=== PATIENT | female | born 1980 | race Caucasian/White ===

== ENCOUNTER → 2020-04-09 10:29 | Outpatient (BNVA) | payer SELFPAY | PROVIDERS: Visit Provider Family Medicine | DX: E87.6 Hypokalemia (principal); I10 Essential (primary) hypertension | CPT/HCPCS: 80053; 80061; 85025 ==

== ENCOUNTER 2022-06-06 10:19 | Inpatient (IN) | payer OTHER, SELFPAY ==
[2022-06-06] VITALS (29 sets, daily range): BP systolic 171–216; BP diastolic 104–151; PULSE 68–110; RESP 14–39; TEMP 36.7–37.2; O2SAT 91–100; BMI 33.2
--- NOTE | 2022-06-06 10:27 | XR_ITS ---
WS: [id number] Exam: XR chest 1V portable [id number] Date/Time of Exam: 06/06/2022 10:27 AM Reason For Exam: swelling Comparison 10/02/2018. There has been significant cardiac enlargement since the prior study. Increased pulmonary vascularity . Small volume right-sided pleural effusion. The mediastinum is normal in contour. Bony structures ar e intact. XR/XR chest 1V portable [id number] IMPRESSION: 1. Interval cardiac enlargement with increased pulmonary vascularity and small volume right-sided pleural effusion. Mild CHF considered likely.
--- NOTE | 2022-06-06 11:12 | W.ED.SOB ---
HPI - SOB/Dyspnea General: Chief Complaint: Shortness of Breath/Dyspnea Stated Complaint: extra fluid in extremities Time Seen by Provider: 06/06/22 11:07 History of Present Illness: HPI Narrative: 42-year-old male into the emergency department with complaints of swelling and high blood pressure. The patient has discontinued his medications over concerns of some swelling. Patient reports a fullness in his abdomen and he has noticed some increased lower extremity swelling. The patient denies any chest pain. He reports some mild shortness of breath. Patient has not recently been ill or running a fever. No chills. Patient is on a variety of different medications to control his blood pressure. Patient reports he has had about a 35 pound weight gain over the past several months. He denies any other significant symptoms. Physical Exam Const: COMMON NORMALS: no acute distress, patient oriented x3 and alert HENMT: COMMON NORMALS: normocephalic HEAD & SCALP: normocephalic Eye: COMMON NORMALS: conjunctivae normal CONJUNCTIVA: Yes conjunctivae normal Neck/C-Spine: COMMON NORMALS: full ROM, no lymphadenopathy, supple and Thyroid normal THYROID: Thyroid normal Resp: COMMON NORMALS: normal respiratory effort, No retractions, No use of accessory muscles and clear to auscultation bilaterally AUSCULTATION: clear to auscultation bilaterally GI: COMMON NORMALS: Normal to inspection, nondistended, normoactive bowel sounds present, non-tender and no masses Extremity: COMMON NORMALS: normal to inspection and full ROM Neuro: COMMON NORMALS: patient oriented x3 SENSORIUM/ORIENTATION: Yes alert Skin: COMMON NORMALS: no rashes or lesions noted, turgor normal and no jaundice GENERAL SKIN EXAM: no rashes or lesions noted and turgor normal Course Vital Signs: Vital signs: Vital Signs Temperature 98.1 F 06/06/22 10:25 Pulse Rate 100 06/06/22 11:09 Respiratory Rate 14 06/06/22 11:09 Blood Pressure 199/145 06/06/22 11:09 Pulse Oximetry 97 06/06/22 11:09 Oxygen Delivery Me thod 06/06/22 11:09 MDM - SOB/Dyspnea Medical Decision Making 42-year-old male in with concerns of shortness of breath and elevated blood pressure. The patient does have some marked edema in his lower extremities. We reviewed differential I do not think this is likely to be infectious in nature. I reviewed his medications certainly his calcium channel ramon can cause some swelling as well. Patient will have labs, EKG and chest x-ray will make further recommendations based on the findings and serial exams but I suspect this is related elevated and uncontrolled hypertension and less likely he has medications he may have some mild congestive failure. Patient looks like he is in congestive heart failure with hypertensive crisis and acute kidney injury. I talked to the hospitalist about admission for further work-up we will place him on a nitroglycerin drip and get him admitted. Differential Diagnosis Likely acute exacerbation of chronic obstructive airways disease, congestive heart failure, community acquired pneumonia, asthma with exacerbation and pulmonary embolism Lab Data 06/06/22 11:10 06/06/22 11:10 Labs/Radiology: Radiology Impressions Chest X-Ray 06/06/22 10: IMPRESSION: 1. Interval cardiac enlargement with increased pulmonary vascularity and small volume right-sided pleural effusion. Mild CHF considered likely. Laboratory Results WBC 7.7 10^3/uL (4.0-10.0) 06/06/22 11:10 RBC 4.23 10^6/uL (4.1-5.3) 06/06/22 11:10 Hgb 12.0 g/dL (11.7-16.6) 06/06/22 11:10 Hct 37.1 % (42.0-52.0) L 06/06/22 11:10 MCV 87.7 fl (80-94) 06/06/22 11:10 MCH 28.4 pg (28.0-34.0) 06/06/22 11:10 MCHC 32.3 g/dL (30.0-36.0) 06/06/22 11:10 RDW 13.4 % (12.1-15.1) 06/06/22 11:10 Plt Count 367 10^3/cmm (130-400) 06/06/22 11:10 MPV 9.4 fL (7.4-10.4) 06/06/22 11:10 Neut % (Auto) 62.3 % 06/06/22 11:10 Lymph % (Auto) 27.0 % 06/06/22 11:10 [place] % (Auto) 9.0 % 06/06/22 11:10 Eos % (Auto) 0.5 % 06/06/22 11:10 Baso % (Auto) 0.9 % 06/06/22 11:10 Neut # (Auto) 4.79 10^3/uL (1.8-7.7) 06/06/22 11:10 Lymph # (Auto) 2.1 10^3/uL (0.8-4.8) 06/06/22 11:10 [place] # (Auto) 0.7 10^3/uL (0.2-0.9) 06/06/22 11:10 Eos # (Auto) 0.0 10^3/uL (0.0-0.8) 06/06/22 11:10 Baso # (Auto) 0.1 10^3/uL (0.0-0.1) 06/06/22 11:10 Nucleated RBC % (auto) 0 % 06/06/22 11:10 Nucleated RBCs # 0.0 /100WBC 06/06/22 11:10 Sodium 136 mmol/L (136-145) 06/06/22 11:10 Potassium 3.1 mmol/L (3.5-5.1) L 06/06/22 11:10 Chloride 97 mmol/L (98-107) L 06/06/22 11:10 Carbon Dioxide 26 mmol/L (22-29) 06/06/22 11:10 Anion Gap 16.1 (5-19) 06/06/22 11:10 BUN 27 mg/dL (6-20) H 06/06/22 11:10 Creatinine 2.6 mg/dL (0.7-1.2) H 06/06/22 11:10 GFR Calculation 27.1 mL/min (90-130) L 06/06/22 11:10 Glucose 96 mg/dL (65-115) 06/06/22 11:10 Calculated Osmolality 287 mOsm/kg (285-295) 06/06/22 11:10 Calcium 9.4 mg/dL (8.5-10.5) 06/06/22 11:10 Total Bilirubin 1.3 mg/dL (0.15-1.2) H 06/06/22 11:10 AST 56 U/L (0-40) H 06/06/22 11:10 ALT 38 U/L (0-41) 06/06/22 11:10 Alkaline Phosphatase 101 U/L (40-130) 06/06/22 11:10 NT-Pro-B Natriuret Pep 56441 pg/mL (0-125) H 06/06/22 11:10 Total Protein 7.8 g/dL (6.6-8.7) 06/06/22 11:10 Albumin 3.8 g/dL (3.5-5.2) 06/06/22 11:10 Globulin 4.0 g/dL (1.3-4.6) 06/06/22 11:10 Discharge Plan Discharge Patient Disposition: Admitted As Inpatient Clinical Impression: Hypokalemia, Congestive heart failure, RASHI (acute kidney injury), Hypertensive crisis Condition: Stable Coding Level of Care Code ED Property Field Adjuster for Joe Fwd Exam Comprehensive
--- NOTE | 2022-06-06 11:13 | ECG_ITS ---
[facility] Test Date: 2022-06-06 Pat Name: Doug Frank Department: Room: Gender: Male Examination Proctor: : 1980 Requested By: Luis Kaiser Order Number: [id number] Mar MD: Chiquita Kan M.D. Measurements Intervals [place] Rate: 96 P: 73 HI: 196 QRS: 12 QRSD: 117 T: 135 QT: 378 QTc: 480 Interpretive Statements SINUS RHYTHM LEFT ATRIAL ENLARGEMENT [-0.15mV P-WAVE IN V1/V2] LEFT VENTRICULAR HYPERTROPHY AND ST-T CHANGE [VOLTAGE CRITERIA PLUS ST/T ABNORMALITY] Compared to ECG 10/03/2018 06:03:02 Atrial abnormality now present Left ventricular hypertrophy now present ST (T wave) deviation now present T-wave abnormality no longer present Possible ischemia no longer present Electronically Signed On 06-06-2022 22:00:40 SPECIAL FORCES MEDICAL SERGEANT by Chiquita Kan M.D. [email or web address]/store/[id number]
[2022-06-06 11:19] LABS: Basophils # 0.1 10^3/uL (0.0-0.1); Basophils % 0.9 %; Eosinophils % 0.5 %; Hematocrit 37.1 % (42.0-52.0); Lymphocytes # 2.1 10^3/uL (0.8-4.8); Mean Corpuscular HGB Conc 32.3 g/dL (30.0-36.0); Mean Corpuscular Hemoglobin 28.4 pg (28.0-34.0); Mean Corpuscular Volume 87.7 fl (80-94); Mean Platelet Volume 9.4 fL (7.4-10.4); Monocytes # 0.7 10^3/uL (0.2-0.9); Neutrophils # 4.79 10^3/uL (1.8-7.7); Neutrophils % 62.3 %; Nucleated Red Blood Cells % 0 %; Platelet Count 367 10^3/cmm (130-400); Red Blood Count 4.23 10^6/uL (4.1-5.3); Red Cell Distribution Width 13.4 % (12.1-15.1); White Blood Count 7.7 10^3/uL (4.0-10.0)
[2022-06-06] MEDS: FUROsemide 10 mg/mL SDV 4mL 40 MG IVP (11:37)
--- NOTE | 2022-06-06 11:43 | PC.PHAR ---
PT AND PTS FAMILY STATES THE PT TAKES ALL THE MEDICATIONS ENTERED PRN-BROUGHT IN ALL MED BOTTLES EXCEPT LISINOPRIL 20MG BID-RX BOTTLES WERE DATED 12/27/2020-NOTES ARE MADE IN THE PHARMACY COMMENTS
[2022-06-06 11:48] LABS: Alanine Aminotransferase 38 U/L (0-41); Albumin Level 3.8 g/dL (3.5-5.2); Alkaline Phosphatase 101 U/L (40-130); Anion Gap 16.1 (5-19); Aspartate Amino Transferase 56 U/L (0-40); Blood Urea Nitrogen 27 mg/dL (6-20); Calcium 9.4 mg/dL (8.5-10.5); Carbon Dioxide 26 mmol/L (22-29); Chloride 97 mmol/L (98-107); Glomerular Filtration Rate 27.1 mL/min (90-130); Glucose 96 mg/dL (65-115); Osmolality Calculated 287 mOsm/kg (285-295); Potassium 3.1 mmol/L (3.5-5.1); Sodium 136 mmol/L (136-145); Total Bilirubin 1.3 mg/dL (0.15-1.2); Total Protein 7.8 g/dL (6.6-8.7)
[2022-06-06 12:08] LABS: NT Pro B Type Natriuretic Pept 33646 pg/mL (0-125)
--- NOTE | 2022-06-06 12:22 | PM.HP ---
Providers/Chief Complaint Chief Complaint: extra fluid in extremities History of Present Illness Doug Frank is a 42 year old male with no previous history of CHF history of IV drug abuse, hypertension, noncompliant, presented with worsening of swelling extremities. Patient is stating that he has been noticing swelling for quite some time but recently has gotten worse, swelling has extending all the way up to his testicles now. He has been noticing orthopnea, PND,. He was struggling financially hence borrowing Lasix from his friends. He is not taking any medications. Has not seen a doctor in a long time. Looking for a restaurant at this moment Never had any NC, endorsing to use of IV cocaine and methamphetamine. He does vap In the ER he was diagnosed with systolic CHF exacerbation, hypertensive emergency with flash pulm edema Review of Systems Const: Denies: fever(s) Eyes: Denies: change in vision ENMT: Denies: throat pain Card: Reports: swelling of feet/ankles, dyspnea on exertion and orthopnea Resp: Reports: dyspnea GI: Denies: abdominal pain : Denies: flank pain Musc: Denies: neck pain Skin/Breast: Reports: skin swelling Neuro: Reports: headache(s) Psych: Reports: anxiety Endo: Denies: polyuria Otis/Lymph: Denies: easy bruising All/Imm: Denies: urticaria Medications/Allergies Home Medications Medication Instructions Recorded Confirmed Last Taken Type amlodipine 5 mg tablet 5 mg PO DAILY PRN Blood Pressure 06/06/22 06/06/22 Unknown History carvedilol 25 mg tablet 25 mg PO BID PRN Blood Pressure 06/06/22 06/06/22 Unknown History hydralazine 50 mg tablet 50 mg PO TID PRN Blood Pressure 06/06/22 06/06/22 Unknown History lisinopril 20 mg tablet 20 mg PO BID PRN Blood Pressure 06/06/22 06/06/22 Unknown History Allergies Allergy/AdvReac Type Severity Reaction Status Date / Time No Known Allergies Allergy Verified 06/06/22 11:40 PFSH Acute PFSH: Medical History Intravenous drug abuse Family History (Updated 06/06/22 @ 20:57 by Crys Stevenson MD) Other CAD (coronary artery disease) Social History (Updated 06/06/22 @ 20:57 by Crys Stevenson MD) Smoking and tobacco status: current every day smoker e-cigarettes E-Cigarette Details: e-cigarette and vaporizer device Alcohol intake: current Alcohol intake frequency: few times a month Substance/Drug Use: current Substance/Drug use type: Crack/Cocaine and Amphetamines Vitals/I&O/Wt Last Vital Signs Temp 98.1 F 06/06/22 10:25 Pulse 100 06/06/22 11:09 Resp 14 06/06/22 11:09 BP 199/145 06/06/22 11:09 Pulse Ox 97 06/06/22 11:09 O2 Del Method 06/06/22 11:09 Weight last 48 hrs Weight 107.955 kg Physical Exam Narrative: Patient is showing signs of anasarca Edema extending all the way up to his abdominal wall Testicle swelling Currently doing well on room air Anxious appearing Bilateral breath sounds without significant crackles S1, S2 Hypertensive Abdomen soft however distended Nonfocal neuro exam EOMI, PERRLA Data 06/06/22 11:10 06/06/22 11:10 A&P Assessment and plan (1) Congestive heart failure: (2) RASHI (acute kidney injury): (3) Hypertensive crisis: (4) Hypokalemia: (5) Essential hypertension: Plan Systolic CHF exacerbation EF 30 to 35% Most likely due to underlying hypertension and IV drug abuse Never had any NC Will need to diurese and then he will probably need coronary angiogram we will consult cardiology over the weekend For her is hypertensive urgency started nitroglycerin and Cardene drip Added hydralazine as well RASHI: Cardiorenal, put Millan catheter monitor urine output Check drug screen Full code Patient will need LifeVest Patient does not have any PCP Noncompliant Check TSH Attestations Medical Necessity Statement*: Anticipating more than 2 midnights Time Spent in Patient Care: 40 Coding Level of Care Code Acute Code for [facility] Fwd Diagnoses Congestive heart failure I50.9 RASHI (acute kidney injury) N17.9 Hypertensive crisis I16.9 Hypokalemia E87.6 Essential hypertension I10
--- NOTE | 2022-06-06 12:32 | USCV_ITS ---
Doug Frank Age: 42 Gender: M : 1980 Exam Date: 06/06/2022 12:49 Ordering Phys: Crys Stevenson MD Technologist: JOSÉ MIGUEL Exam Location: [facility] [place] Indication: chf BP: / HR: 111 Rhythm: Sinus Technical Quality: Adequate MEASUREMENTS (Male / Female) Normal Values 2D ECHO LV Diastolic Diameter PLAX 6.2 cm 4.2 - 5.9 / 3.9 - 5.3 cm LV Systolic Diameter PLAX 5.3 cm IVS Diastolic Thickness 1.3 cm 0.6 - 1.0 / 0.6 - 0.9 cm IVS Systolic Thickness 1.6 cm LVPW Diastolic Thickness 1.3 cm 0.6 - 1.0 / 0.6 - 0.9 cm LVPW Systolic Thickness 1.4 cm LVOT Diameter 2.1 cm LV Ejection Fraction 2D Teich 31.8 % LV Ejection Fraction MOD 2C 41.5 % LV Ejection Fraction 2C AL 42.4 % LA Diameter 5.0 cm IVC Diameter 2.4 cm M-MODE Aortic Annulus Diameter 2.7 cm LA Ao Ratio MM 2.0 MV E Point Septal Separation 1.9 cm DOPPLER AV Peak Velocity 109.5 cm/s LVOT Peak Velocity 103.0 cm/s AV Area Cont Eq vti 2.9 cm squared AV Area Cont Eq pk 3.4 cm squared MV Area PHT 5.0 cm squared Mitral E to A Ratio 4.9 MV E' Velocity 64.0 cm/s Mitral E to MV E' Ratio 16.6 Mitral E to LV E' Lateral Ratio 16.8 Mitral E to LV E' Septal Ratio 16.6 TR Peak Velocity 281.7 cm/s TR Peak Gradient 31.7 mmHg TV Peak E Velocity 80.0 cm/s Right Atrial Pressure 3.0 mmHg Pulmonary Artery Systolic Pressu 34.7 mmHg PV Peak Velocity 59.0 cm/s FINDINGS Left Ventricle Left ventricle is dilated. LV systolic function is moderate to severely reduced with EF of 30 to 35%. Severe global hypokinesis is seen. Right Ventricle Normal in size and function Right Atrium Dilated Left Atrium Dilated Mitral Valve Structurally normal mitral valve. Mild mitral regurgitation. Aortic Valve Structurally normal aortic valve. No significant stenosis or regurgitation. Tricuspid Valve Mild tricuspid regurgitation. RVSP is 35-40mmHg. This is consistent with mild pulmonary hypertension Pulmonic Valve Not well visualized Pericardium Normal Aorta Normal in size IVC Appears to be normal CONCLUSIONS Left ventricle is dilated LV systolic function is moderate to severely reduced with EF of 30 to 35% . Severe global hypokinesis seen. Biatrial dilation Mild mitral regurgitation Mild tricuspid regurgitation Mild pulmonary hypertension No comparison studies are available. Krzysztof Ramsay MD (Electronically Signed) Final Date: 06 June 2022 14:39 S
[2022-06-06] MEDS: nitroglycerin drip 50 MG/250 ML PREMIX IV (12:48)
[2022-06-06] MEDS: heparin 5,000 unit/mL INJ 1 mL 5000 UNIT SUBCUT ×2 (12:54→23:46)
[2022-06-06 13:04] LABS: Add Urine Microscopic? YES; Bilirubin Urine Neg (Negative); Blood Urine Trace (Negative); Glucose Urine UA Norm (Normal); Ketones Urine Negative (Negative); Leukocyte Esterase Urine Negative (Negative); Nitrate Urine Negative (Negative); Protein Urine 2+ (Negative); Specific Gravity, Urine 1.005 (1.005-1.030); Urine Appearance Clear (CLEAR); Urine Color Yellow (Yellow); Urobilinogen Urine Norm (Negative); pH Urine 7 (5-7)
[2022-06-06 13:09] LABS: Troponin(5th) Baseline 93 ng/L (0-15)
[2022-06-06 13:15] LABS: Bacteria Urine TRACE /hpf; RBC Urine 0-4 /hpf (0-2); Squamous Epithelial Cell Urine RARE /hpf (0-5); WBC Urine 0-4 /hpf (0-5)
[2022-06-06 13:16] LABS: Add Urine Culture? No
--- NOTE | 2022-06-06 14:10 | PC.NURSE ---
Pt arrives to ICU from Ed. Pt alert and oriented. To bathroom to urinate. Nitro at 20mcg/min. Increased to 30mcg/min for BP of 179/124.
--- NOTE | 2022-06-06 14:11 | PC.NURSE ---
Physical assessment: Significant scrotal edema noted.
--- NOTE | 2022-06-06 14:32 | ECG_ITS ---
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 Measurements Intervals [place] Rate: 97 P: 72 TX: 200 QRS: 39 QRSD: 112 T: 132 QT: 373 QTc: 475 Interpretive Statements SINUS RHYTHM POSSIBLE LEFT ATRIAL ENLARGEMENT [-0.1mV P-WAVE IN V1/V2] LEFT VENTRICULAR HYPERTROPHY AND ST-T CHANGE [VOLTAGE CRITERIA PLUS ST/T ABNORMALITY] Compared to ECG 06/06/2022 11:23:12 No significant changes Electronically Signed On 06-06-2022 22:11:45 PRODUCTION MECHANIC TIN CANS by Chiquita Kan M.D. [id number]
--- NOTE | 2022-06-06 18:32 | ECG_ITS ---
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 Measurements Intervals [place] Rate: 98 P: 73 RI: 198 QRS: 27 QRSD: 116 T: 186 QT: 366 QTc: 468 Interpretive Statements SINUS RHYTHM LEFT VENTRICULAR HYPERTROPHY AND ST-T CHANGE [VOLTAGE CRITERIA PLUS ST/T ABNORMALITY] Compared to ECG 06/06/2022 14:51:27 No significant changes Electronically Signed On 06-06-2022 22:09:16 SCIENTIFIC RESEARCH ASSOCIATE by Chiquita Kan M.D. [email or web address] a. andrew memorial hospitalVISUALPLANTselect medical [facility].[employer]/store/OM/[id number]
--- NOTE | 2022-06-06 19:03 | PC.NURSE ---
Shift Note: NO complaints of pain or shortness of breath since arrival to ICU. Pt resting in bed. Pitting edema bilat legs. Scrotal edema still present. Pt uses urinal. He urinated once in bathroom upon arrival to ICU that did not get measured. He urinated 4 more times for a total of 1874 ml output. Frequent safety and comfort rounds continue. Orders and/or nursing care completed as indicated. Patient monitored for response to intervention and treatment(s). Education provided includes edema, Nitroglycerin, plan of care and progress. Patient and/or entry level sales representative verbalized understanding of topics discussed. Will continue to monitor.
[2022-06-06 19:16] LABS: Troponin 5 6HR 86.15 ng/L (0-15)
[2022-06-06 19:24] LABS: Thyroid Stimulating Hormone 4.25 uIU/mL (0.27-4.20)
[2022-06-06 19:28] LABS: Troponin 5 6HR Delta -6.85 ng/L (0-12)
[2022-06-06] MEDS: hyDRALAzine 50 mg Tablet PO (19:39)
[2022-06-06] MEDS: bumetanide 0.25 mg/mL SDV 10 mL 2 MG IVP (19:40)
[2022-06-06] MEDS: lidocaine 1% 5 ML in potassium chloride premix 100 ML 26.25 ML IV (19:43)
[2022-06-06] MEDS: nitroglycerin drip 50 MG/250 ML PREMIX 54 MG IV (20:12)
[2022-06-06 21:48] LABS: Amphetamines Screen Urine Negative (Negative); Barbiturates Screen Urine Negative (Negative); Benzodiazepines Screen Urine Negative (Negative); Cocaine Screen Urine Negative (Negative); Opiate Screen Urine Negative (Negative); PCP Screen Urine Negative (Negative); THC Screen Urine Negative (Negative)
[2022-06-06] MEDS: ALPRAZolam 0.5 mg Tablet PO (22:34)
[2022-06-06] MEDS: nicardipine 20 MG/200 ML PREMIX 50 MG IV (23:18)
[2022-06-07] VITALS (65 sets, daily range): BP systolic 109–171; BP diastolic 65–101; PULSE 78–112; RESP 14–29; TEMP 36.4–37.1; O2SAT 91–100
[2022-06-07] MEDS: ondansetron 2 mg/ML SDV 2 mL 4 MG IVP (00:05)
[2022-06-07] MEDS: morphine IR 15 mg Tablet PO (00:05)
[2022-06-07] MEDS: nitroglycerin drip 50 MG/250 ML PREMIX 57 MG IV (00:46)
[2022-06-07] MEDS: nicardipine 20 MG/200 ML PREMIX 30 MG IV (04:47)
[2022-06-07 05:18] LABS: Basophils % 0.3 %; Eosinophils % 0.1 %; Hematocrit 33.1 % (42.0-52.0); Hemoglobin 10.4 g/dL (11.7-16.6); Lymphocytes % 8.9 %; Mean Corpuscular HGB Conc 31.4 g/dL (30.0-36.0); Mean Corpuscular Hemoglobin 27.5 pg (28.0-34.0); Mean Corpuscular Volume 87.6 fl (80-94); Mean Platelet Volume 9.5 fL (7.4-10.4); Monocytes # 0.7 10^3/uL (0.2-0.9); Monocytes % 6.7 %; Neutrophils # 8.92 10^3/uL (1.8-7.7); Neutrophils % 83.7 %; Nucleated Red Blood Cells % 0 %; Platelet Count 355 10^3/cmm (130-400); Red Blood Count 3.78 10^6/uL (4.1-5.3); Red Cell Distribution Width 13.2 % (12.1-15.1); White Blood Count 10.7 10^3/uL (4.0-10.0)
[2022-06-07 05:46] LABS: Anion Gap 17.6 (5-19); Blood Urea Nitrogen 24 mg/dL (6-20); Carbon Dioxide 28 mmol/L (22-29); Chloride 99 mmol/L (98-107); Glomerular Filtration Rate 28.3 mL/min (90-130); Glucose 139 mg/dL (65-115); Magnesium 1.8 mg/dL (1.7-2.3); Osmolality Calculated 298 mOsm/kg (285-295); Potassium 3.6 mmol/L (3.5-5.1); Sodium 141 mmol/L (136-145)
[2022-06-07] MEDS: bumetanide 0.25 mg/mL SDV 10 mL 2 MG IVP ×2 (05:46→17:51)
[2022-06-07] MEDS: nitroglycerin drip 50 MG/250 ML PREMIX 28.5 MG IV ×2 (07:07→16:16)
[2022-06-07] MEDS: cloNIDine 0.1 mg Tablet PO (08:52)
[2022-06-07] MEDS: potassium chloride ER 20 mEq Tablet 40 MEQ PO ×2 (08:53→17:51)
[2022-06-07] MEDS: isosorbide dinitrate 20 mg Tablet PO ×2 (08:53→17:51)
[2022-06-07] MEDS: sennosides-docusate Tablet 1 TAB PO (08:53)
[2022-06-07] MEDS: hyDRALAzine 50 mg Tablet PO ×4 (08:53→20:44)
--- NOTE | 2022-06-07 11:29 | PM.PN ---
Subjective Subjective: Patient is still hypertensive requiring nitroglycerin I have added nurse to start Cardene and titrate off nitroglycerin, he is also getting hydralazine No active chest pain or shortness of breath Still fluid overloaded Adequate urinary output Creatinine improved slightly Afebrile Vitals/I&O/Wt Last Vital Signs Temp 98.7 F 06/07/22 08:00 Pulse 100 06/07/22 10:00 Resp 20 H 06/07/22 10:00 BP 153/89 06/07/22 10:00 Pulse Ox 97 06/07/22 10:00 O2 Del Method 06/07/22 10:00 O2 Flow Rate 3 06/07/22 10:00 FiO2 30 06/06/22 16:00 06/06/22 06/07/22 06/07/22 22:59 06:59 14:59 Intake Total 883.975 / 893.025 759.417 / 1652.442 480 / 480 Output Total 3975 / 3975 1850 / 5825 Balance -3091.025 / -3081.975 -1090.583 / -4172.558 480 / 480 Weight last 48 hrs Weight 101 kg Weight 107.955 kg Physical Exam Narrative: Patient is clinically fluid overloaded Anasarca Testicular swelling 3+ edema of legs extending all the way up to his abdominal wall S1, S2 Hypertensive Awake and alert Eating breakfast Positive crackles bilaterally Not requiring oxygen No acute distress Urinary Catheter Management: Millan: Cath Placed During This Visit: yes Reason for Continuing Indwelling Catheter: Accurate Measurement of Urinary Output in Critically Ill Patients Urinary Catheter Date of Insertion: 06/06/22 Urinary Catheter Time of Insertion: 20:05 Data 06/07/22 04:40 06/07/22 04:40 A&P Assessment and plan (1) Congestive heart failure: (2) RASHI (acute kidney injury): (3) Hypertensive crisis: (4) Hypokalemia: (5) Essential hypertension: Plan Systolic CHF exacerbation Secondary to noncompliance, hypertension, IV drug abuse Will consult cardiology tomorrow He is not ready for coronary angiogram RASHI cardiorenal in nature improving with diuresis Continue aggressive IV diuresis Hypertensive emergency: Patient is still requiring IV Cardene and nitroglycerin Pulm edema consistent with CHF exacerbation Not requiring oxygen no need of BiPAP for now Patient will need LifeVest at the time of discharge Full code Cardiac diet Electrolytes: Replenished If his blood pressure does not respond in next few hours we might need to pursue resistant hypertension work-up however I do believe patient has not used medications in the last few months and it will take a few more hours for the medications to achieve therapeutic level and then will start seeing response on his blood pressure Attestations Medical Necessity Statement*: Continue ICU management for now Time Spent in Patient Care: 30 Coding Level of Care Code Acute Code for g Fwd Diagnoses Congestive heart failure I50.9 RASHI (acute kidney injury) N17.9 Hypertensive crisis I16.9 Hypokalemia E87.6 Essential hypertension I10
[2022-06-07] MEDS: heparin 5,000 unit/mL INJ 1 mL 5000 UNIT SUBCUT (12:35)
[2022-06-07] MEDS: carvedilol 6.25 mg Tablet PO ×2 (12:35→17:51)
--- NOTE | 2022-06-07 19:13 | PC.NURSE ---
All the care and documentation that was completed by Chel Cantrell student nurse was monitored and confirmed by this nurse.
--- NOTE | 2022-06-07 21:41 | PC.NURSE ---
Pt requesting xanax for anxiety, Dr. Black made aware of pt request, new order for a one time dose of xanax.
[2022-06-07] MEDS: ALPRAZolam 0.5 mg Tablet PO (21:59)
[2022-06-08] VITALS (77 sets, daily range): BP systolic 104–168; BP diastolic 49–112; PULSE 77–91; RESP 15–29; TEMP 36.3–37.1; O2SAT 85–100
[2022-06-08] MEDS: heparin 5,000 unit/mL INJ 1 mL 5000 UNIT SUBCUT ×3 (00:40→23:56)
[2022-06-08 05:31] LABS: Basophils % 0.4 %; Eosinophils # 0.3 10^3/uL (0.0-0.8); Eosinophils % 3.2 %; Hemoglobin 10.1 g/dL (11.7-16.6); Lymphocytes # 1.7 10^3/uL (0.8-4.8); Lymphocytes % 21.6 %; Mean Corpuscular HGB Conc 31.6 g/dL (30.0-36.0); Mean Corpuscular Hemoglobin 28.5 pg (28.0-34.0); Mean Corpuscular Volume 90.1 fl (80-94); Mean Platelet Volume 10.3 fL (7.4-10.4); Monocytes # 0.8 10^3/uL (0.2-0.9); Monocytes % 9.6 %; Nucleated Red Blood Cells % 0 %; Platelet Count 293 10^3/cmm (130-400); Red Blood Count 3.55 10^6/uL (4.1-5.3); Red Cell Distribution Width 13.4 % (12.1-15.1)
[2022-06-08 05:52] LABS: Blood Urea Nitrogen 32 mg/dL (6-20); Calcium 8.6 mg/dL (8.5-10.5); Carbon Dioxide 29 mmol/L (22-29); Chloride 95 mmol/L (98-107); Glomerular Filtration Rate 31.2 mL/min (90-130); Glucose 85 mg/dL (65-115); Osmolality Calculated 286 mOsm/kg (285-295); Sodium 135 mmol/L (136-145)
[2022-06-08 05:59] LABS: Anion Gap 14.8 (5-19)
[2022-06-08 06:00] LABS: Potassium 3.8 mmol/L (3.5-5.1)
[2022-06-08] MEDS: bumetanide 0.25 mg/mL SDV 10 mL 2 MG IVP ×2 (06:14→18:41)
[2022-06-08] MEDS: carvedilol 6.25 mg Tablet PO ×2 (08:19→18:00)
[2022-06-08] MEDS: potassium chloride ER 20 mEq Tablet 40 MEQ PO ×2 (08:19→18:00)
[2022-06-08] MEDS: hyDRALAzine 50 mg Tablet PO ×4 (08:19→20:46)
[2022-06-08] MEDS: sennosides-docusate Tablet 1 TAB PO (08:20)
[2022-06-08] MEDS: isosorbide dinitrate 20 mg Tablet PO ×2 (08:20→18:00)
--- NOTE | 2022-06-08 10:59 | P.PN_ITS ---
Subjective Subjective: Adequate diuresis Creatinine improving I will request for stress test for tomorrow Patient still fluid overloaded Currently on room air doing well No overnight events Still hypertensive Off antihtn gtt. Vitals/I&O/Wt Last Vital Signs Temp 97.4 F L 06/08/22 08:15 Pulse 78 06/08/22 10:15 Resp 17 06/08/22 10:15 BP 104/49 06/08/22 10:15 Pulse Ox 87 L 06/08/22 10:15 O2 Del Method 06/08/22 08:15 O2 Flow Rate 3 06/08/22 07:50 FiO2 30 06/06/22 16:00 06/07/22 06/08/22 06/08/22 22:59 06:59 14:59 Intake Total 1172.275 / 1892.275 272.70 / 2164.975 Output Total 325 / 1725 800 / 2525 Balance 847.275 / 167.275 -527.30 / -360.025 Weight last 48 hrs Weight 101.196 kg Weight 101 kg Physical Exam Narrative: Patient is clinically fluid overload Currently doing well on room air Anasarca Doing well on room air S1, S2 Crackles positive on lung auscultation Awake and alert nonfocal neuro exam Millan catheter draining dilute urine Still hypertensive Urinary Catheter Management: Millan: Cath Placed During This Visit: yes Reason for Continuing Indwelling Catheter: Accurate Measurement of Urinary Output in Critically Ill Patients Urinary Catheter Date of Insertion: 06/06/22 Urinary Catheter Time of Insertion: 20:05 Data 06/08/22 03:49 06/08/22 03:49 A&P Assessment and plan (1) Congestive heart failure: (2) RASHI (acute kidney injury): (3) Hypertensive crisis: (4) Hypokalemia: (5) Essential hypertension: Plan Acute systolic CHF exacerbation: Planning for cardiac stress test once he is euvolemic Patient will need cardiac work-up once creatinine stabilizes RASHI related to cardiorenal: Anticipate improvement with diuresis Continue diuretic regimen for now Electrolytes replenished Hypertensive emergency: Cardene nitroglycerin turned off, currently on p.o. regimen, Full code Cardiac diet N.p.o. after midnight Attestations Medical Necessity Statement*: Continue ICU management Time Spent in Patient Care: 30 Coding Level of Care Code Acute Code for [facility] Fw Diagnoses Congestive heart failure I50.9 RASHI (acute kidney injury) N17.9 Hypertensive crisis I16.9 Hypokalemia E87.6 Essential hypertension I10
--- NOTE | 2022-06-08 11:02 | ECG_ITS ---
[facility] Test Date: 2022-06-09 Pat Name: Doug Frank Department: Room: 103 Gender: Male Caseworker: Casandra MontielErickson : 1980 Requested By: Crys Stevenson Order Number: [id number] Mar MD: Krzysztof Ramsay M.D. Interpretive Statements NAME OF STUDY: LEXISCAN SESTAMIBI STRESS TEST INDICATION: [CHF, ] Procedure: At the baseline, the blood pressure was 161/113 mmHg with a heart rate of 84 bpm. The electrocardiogram showed normal sinus rhythm, normal axis with normal ST and T's and LVH changes. The Lexiscan was infused over a period of 20 seconds. A total of 0.4 mg of Lexiscan was infused. The stress phase was continued for a total of 5 minutes. Heart rate was at the end of stress phase was 84 bpm and a blood pressure of 148/100 mmHg. The EKG at the peak infusion revealed normal sinus rhythm with no significant ST-T wave changes. Sestamibi was injected 20 seconds after the Lexiscan infusion. Blood pressure at the end of recovery phase was 153/97 mmHg with a heart rate of 83 bpm. Conclusion: 1. Normal EKG response to Lexiscan infusion 2. No Lexiscan induced chest pain or cardiac arrhythmia. 3. Normal blood pressure and heart rate response. 4. Sestamibi/sestamibi perfusion scan pending; see separate report. Electronically Signed On 06-25-2022 17:24:47 SKIP HOIST ENGINEER by Krzysztof Ramsay M.D. [id number]
--- NOTE | 2022-06-08 18:26 | PC.NURSE ---
Transfer Note Patient transferred to CSU room 103 from ICU via wheelchair. Handoff report given to JASS Jain. Patient oriented to environment and equipment. Covering service notified. Orders reviewed and will continue to monitor. All patient belongings including phone, trimmer climber, shoes, shirt, pants, and underwear transferred with patient and placed at bedside. Patient alert/oriented x4 on room air at time of transfer. No wounds or skin issues noted at this time.
--- NOTE | 2022-06-08 18:36 | PC.NURSE ---
Pt arrived to unit. Alert and oriented. Able to make needs known. Call light in reach. Voices no c/o pain or discomfort. Marty hose in place. Yana to BSD. Iv patent to right AC. No skin issues noted.
[2022-06-08] MEDS: ALPRAZolam 0.5 mg Tablet PO (20:46)
[2022-06-09] VITALS (22 sets, daily range): BP systolic 143–167; BP diastolic 66–116; PULSE 80–90; RESP 14–25; TEMP 36.4–37; O2SAT 90–99
[2022-06-09] MEDS: morphine IR 15 mg Tablet PO ×3 (02:22→19:53)
[2022-06-09] MEDS: cloNIDine 0.1 mg Tablet PO (04:27)
[2022-06-09 04:59] LABS: Anion Gap 14.8 (5-19); Blood Urea Nitrogen 32 mg/dL (6-20); Calcium 8.4 mg/dL (8.5-10.5); Carbon Dioxide 28 mmol/L (22-29); Chloride 96 mmol/L (98-107); Glomerular Filtration Rate 34.6 mL/min (90-130); Glucose 87 mg/dL (65-115); Osmolality Calculated 286 mOsm/kg (285-295); Potassium 3.8 mmol/L (3.5-5.1); Sodium 135 mmol/L (136-145)
[2022-06-09] MEDS: bumetanide 0.25 mg/mL SDV 10 mL 2 MG IVP ×2 (06:21→17:54)
--- NOTE | 2022-06-09 07:09 | PC.NURSE ---
off unit to stress test/nuc med
[2022-06-09] MEDS: regadenoson 0.4 Mg/5 ml Syringe IVP (07:19)
[2022-06-09] MEDS: hyDRALAzine 50 mg Tablet PO ×4 (09:10→19:53)
[2022-06-09] MEDS: potassium chloride ER 20 mEq Tablet 40 MEQ PO ×2 (09:10→17:54)
[2022-06-09] MEDS: isosorbide dinitrate 20 mg Tablet PO ×2 (09:10→17:54)
[2022-06-09] MEDS: carvedilol 6.25 mg Tablet PO ×2 (09:10→17:55)
--- NOTE | 2022-06-09 11:02 | NMCV_ITS ---
NM rochelle perf SPECT r/s* [id number] Monika, Doug Age: 42 Gender: M : 1980 Exam Date: 06/09/2022 11:02 Ordering Phys: Crys Stevenson MD Technologist: SCOUT Fischer Exam Location: [facility] Indications: CHEST PAIN STRESS TEST Please see separate stress test report in [facility] for full findings IMAGE PROTOCOL Rest/Stress 1 Lexiscan Day Radiopharmaceutical Dose (mCi) Administration Site Administered by Rest: Tc-99m 10.9 IV SCOUT Luis Sestamibi Stress:Tc-99m 32.9 IV SCOUT Luis Sestamibi Rest: 09-Jun-2022 60 Discovery 630 Stress: 09-Jun-2022 30 Discovery 630 0.4mg Lexiscan. Supine position only as patient was unable to lay prone. SPECT RESULTS Technical Quality: Excellent Raw Data Analysis: Normal Image Corrections: No attenuation or motion correction applied Summed Stress Score: 4 Summed Rest Score: 1 Summed Difference Score: 3 PERFUSION FINDINGS There is a small sized, partially reversible perfusion defect noted in the inferolateral wall. This is consistent with small sized prior infarct with small area of rogelio-infarct ischemia in the left circumflex artery territory. FUNCTIONAL RESULTS (calculated via Gated SPECT) Stress Image LV EF (%): 22 Stress EDV (mL):281 TID: 0.98 Stress ESV (mL):220 FUNCTIONAL FINDINGS: LV systolic function is severely reduced IMPRESSIONS 1. Abnormal myocardial perfusion imaging with small sized prior infarct with small area of rogelio-infarct ischemia seen in the left circumflex artery territory. 2. LV systolic function severely reduced Krzysztof Ramsay MD (Electronically Signed) Final Date: 09 June 2022 10:07 S
--- NOTE | 2022-06-09 11:25 | PM.PN ---
Subjective Subjective: seen this am will be having stress test today. BP better Vitals/I&O/Wt Last Vital Signs Temp 97.6 F 06/09/22 04:00 Pulse 80 06/09/22 10:26 Resp 15 06/09/22 10:26 BP 147/84 06/09/22 10:26 Pulse Ox 93 06/09/22 10:26 O2 Del Method 06/09/22 10:26 O2 Flow Rate 2 06/09/22 10:26 FiO2 30 06/06/22 16:00 06/08/22 06/09/22 06/09/22 22:59 06:59 14:59 Intake Total 480 / 880 480 / 1360 360 / 360 Output Total 2300 / 2300 450 / 2750 1150 / 1150 Balance -1820 / -1420 30 / -1390 -790 / -790 Weight last 48 hrs Weight 107.002 kg Weight 101.196 kg Physical Exam Narrative: Patient is clinically fluid overload Currently doing well on room air Anasarca Doing well on room air S1, S2 Crackles positive on lung auscultation Awake and alert nonfocal neuro exam Millan catheter draining dilute urine Still hypertensive Urinary Catheter Management: Millan: Cath Placed During This Visit: yes Reason for Continuing Indwelling Catheter: Accurate Measurement of Urinary Output in Critically Ill Patients Urinary Catheter Date of Insertion: 06/06/22 Urinary Catheter Time of Insertion: 20:05 Data 06/08/22 03:49 06/09/22 03:27 A&P Assessment and plan (1) Congestive heart failure: (2) RASHI (acute kidney injury): (3) Hypertensive crisis: (4) Hypokalemia: (5) Essential hypertension: Plan Acute systolic CHF exacerbation: Planning for cardiac stress test once he is euvolemic Patient will need cardiac work-up once creatinine stabilizes RASHI related to cardiorenal: Anticipate improvement with diuresis Continue diuretic regimen for now Electrolytes replenished Hypertensive emergency: Cardene nitroglycerin turned off, currently on p.o. regimen, Full code Cardiac diet NPO for stress test today Attestations Medical Necessity Statement*: Stress test today. Further management after results. Coding Level of Care Code Acute Code for [facility] Diagnoses Congestive heart failure I50.9 RASHI (acute kidney injury) N17.9 Hypertensive crisis I16.9 Hypokalemia E87.6 Essential hypertension I10
[2022-06-09] MEDS: heparin 5,000 unit/mL INJ 1 mL 5000 UNIT SUBCUT ×2 (12:58→23:21)
--- NOTE | 2022-06-09 19:37 | PC.NURSE ---
Patient requesting something to help with sleep or anxiety. Spoke with Dr. Stevenson in the calles and received verbal order for Restoril 15mg PO as needed for sleep and a renewal order for Morphine as previously ordered. RBVO
[2022-06-09] MEDS: temazepam 15 mg Capsule PO (19:53)
[2022-06-10] VITALS (15 sets, daily range): BP systolic 133–178; BP diastolic 75–119; PULSE 82–94; RESP 14–20; TEMP 36.6–37.1; O2SAT 91–95
[2022-06-10 03:34] LABS: Basophils % 0.5 %; Eosinophils # 0.3 10^3/uL (0.0-0.8); Eosinophils % 3.4 %; Hematocrit 36.5 % (42.0-52.0); Hemoglobin 10.9 g/dL (11.7-16.6); Lymphocytes % 27.3 %; Mean Corpuscular HGB Conc 29.9 g/dL (30.0-36.0); Mean Corpuscular Hemoglobin 27.5 pg (28.0-34.0); Mean Corpuscular Volume 92.2 fl (80-94); Mean Platelet Volume 9.4 fL (7.4-10.4); Monocytes # 0.6 10^3/uL (0.2-0.9); Monocytes % 7.5 %; Neutrophils # 4.48 10^3/uL (1.8-7.7); Neutrophils % 61.2 %; Nucleated Red Blood Cells % 0 %; Platelet Count 372 10^3/cmm (130-400); Red Blood Count 3.96 10^6/uL (4.1-5.3); Red Cell Distribution Width 13.3 % (12.1-15.1); White Blood Count 7.3 10^3/uL (4.0-10.0)
[2022-06-10 04:14] LABS: Anion Gap 11.4 (5-19); Blood Urea Nitrogen 29 mg/dL (6-20); Carbon Dioxide 35 mmol/L (22-29); Chloride 96 mmol/L (98-107); Creatinine Clr Calc Pharmacy 51.5346; Glomerular Filtration Rate 31.2 mL/min (90-130); Glucose 111 mg/dL (65-115); Magnesium 1.9 mg/dL (1.7-2.3); Osmolality Calculated 293 mOsm/kg (285-295); Potassium 4.4 mmol/L (3.5-5.1); Sodium 138 mmol/L (136-145)
[2022-06-10] MEDS: bumetanide 0.25 mg/mL SDV 10 mL 2 MG IVP ×2 (05:01→17:09)
[2022-06-10] MEDS: morphine IR 15 mg Tablet PO ×2 (05:01→17:56)
[2022-06-10] MEDS: potassium chloride ER 20 mEq Tablet 40 MEQ PO (07:41)
[2022-06-10] MEDS: isosorbide dinitrate 20 mg Tablet PO ×2 (07:41→17:08)
[2022-06-10] MEDS: carvedilol 6.25 mg Tablet PO (07:42)
[2022-06-10] MEDS: hyDRALAzine 50 mg Tablet PO (07:42)
[2022-06-10] MEDS: sennosides-docusate Tablet 1 TAB PO (07:42)
--- NOTE | 2022-06-10 08:24 | US_ITS ---
WS: [id number] RENAL ULTRASOUND HISTORY: Persistent hypertension. COMPARISON: None available. TECHNIQUE: 2-D and color Doppler imaging of the kidney submitted. Right kidney: 11.0 cm x 6.1 cm x 4.8 cm. Normal echogenicity with no hydronephrosis or mass. Left kidney: 12.4 cm x 6.2 cm x 6.0 cm. Normal echogenicity with no hydronephrosis or mass. Aorta: Normal. Urinary Bladder: Nondistended urinary bladder. Millan catheter in place. US/US renal BI* [id number] IMPRESSION: Normal renal ultrasound.
--- NOTE | 2022-06-10 10:00 | PC.NURSE ---
pt offered to shower this morning, he sated he will wait until his partner get here today.
--- NOTE | 2022-06-10 12:20 | PM.CONSULT ---
Providers/Reason For Consult Consulting Physician/Specialty*: Krzysztof Ramsay MD/ Cardiology Reason for Consult*: Uncontrolled hypertension Requesting Physician: Dr Ayala Attending Physician: Marianna Ayala MD History of Present Illness History of Present Illness Doug Frank is a 42 year old male with past medical history of congestive heart failure, IV drug abuse, hypertension who presented to the hospital with worsening lower extremity edema and some shortness of breath. Patient was found to have very high blood pressure. His echocardiogram showed severely reduced LV systolic function with EF of 30 to 35%. He underwent stress test that showed small sized prior infarct with small area of rogelio-infarct ischemia in left circumflex artery territory. He was also found to have flash pulmonary edema. Creatinine was elevated. NT proBNP was more than 30,000. Disease consulted as patient has difficult to control blood pressure Review of Systems Const: Denies: fever(s) Eyes: Denies: change in vision ENMT: Denies: throat pain Card: Reports: swelling of feet/ankles, dyspnea on exertion and orthopnea Resp: Reports: dyspnea GI: Denies: abdominal pain : Denies: flank pain Musc: Denies: neck pain Skin/Breast: Reports: skin swelling Neuro: Reports: headache(s) Psych: Reports: anxiety Endo: Denies: polyuria Otis/Lymph: Denies: easy bruising All/Imm: Denies: urticaria Medications/Allergies Home Medications Medication Instructions Recorded Confirmed Last Taken Type amlodipine 5 mg tablet 5 mg PO DAILY PRN Blood Pressure 06/06/22 06/06/22 Unknown History carvedilol 25 mg tablet 25 mg PO BID PRN Blood Pressure 06/06/22 06/06/22 Unknown History hydralazine 50 mg tablet 50 mg PO TID PRN Blood Pressure 06/06/22 06/06/22 Unknown History lisinopril 20 mg tablet 20 mg PO BID PRN Blood Pressure 06/06/22 06/06/22 Unknown History Allergies Allergy/AdvReac Type Severity Reaction Status Date / Time No Known Allergies Allergy Verified 06/06/22 11:40 Current Medications Generic Name Dose Route Start Last Admin Trade Name Freq PRN Reason Stop Dose Admin Bumetanide 2 mg 06/06/22 18:45 06/10/22 05:01 Bumetanide 0.25 Mg/Ml Sdv 10 Ml IVP 2 mg Q12H ROEL Administration Clonidine HCl 0.1 mg 06/07/22 11:34 06/09/22 04:27 Clonidine 0.1 Mg Tablet PO 0.1 mg Q4H PRN Administration BP>200/110 Heparin Sodium (Porcine) 5,000 unit 06/06/22 12:30 06/09/22 23:21 Heparin 5,000 Unit/Ml Inj 1 Ml SUBCUT 5,000 unit Q12H ROEL Administration Isosorbide Dinitrate 20 mg 06/07/22 09:00 06/10/22 07:41 Isosorbide Dinitrate 20 Mg Tablet PO 20 mg BID ROEL Administration Morphine Sulfate 15 mg 06/06/22 18:43 06/10/22 05:01 Morphine Ir 15 Mg Tablet PO 15 mg Q6H PRN Administration pAIN Ondansetron HCl 4 mg 06/06/22 12:22 06/07/22 00:05 Ondansetron 2 Mg/Ml Sdv 2 Ml IVP 4 mg Q6H PRN Administration NAUSEA AND VOMITING Potassium Chloride 40 meq 06/07/22 09:00 06/10/22 07:41 Potassium Chloride Er 20 Meq Tablet PO 40 meq BID ROEL Administration Senna/Docusate Sodium 1 tab 06/07/22 09:00 06/10/22 07:42 Sennosides-Docusate Tablet PO 1 tab DAILY ROEL Administration Temazepam 15 mg 06/09/22 19:37 06/09/22 19:53 Temazepam 15 Mg Capsule PO 15 mg BEDTIME PRN Administration INSOMNIA PFSH Acute PFSH: Medical History Essential hypertension Intravenous drug abuse Family History Other CAD (coronary artery disease) Social History Smoking and tobacco status: current every day smoker e-cigarettes E-Cigarette Details: e-cigarette and vaporizer device Alcohol intake: current Alcohol intake frequency: few times a month Substance/Drug Use: current Substance/Drug use type: Crack/Cocaine and Amphetamines Vitals/I&O/Wt Last Vital Signs Temp 98.3 F 06/10/22 11:58 Pulse 84 06/10/22 11:58 Resp 15 06/10/22 11:58 BP 133/86 06/10/22 11:58 Pulse Ox 94 06/10/22 11:58 O2 Del Method 06/10/22 11:58 O2 Flow Rate 2 06/09/22 11:59 FiO2 30 06/06/22 16:00 06/09/22 06/10/22 06/10/22 22:59 06:59 14:59 Intake Total 954 / 1668 240 / 1908 478 / 478 Output Total 1350 / 3450 1650 / 5100 1000 / 1000 Balance -396 / -1782 -1410 / -3192 -522 / -522 Weight last 48 hrs Weight 239 lb 6.4 oz Weight 235 lb 14.4 oz Physical Exam Narrative: GENERAL: Patient is alert, awake and oriented x3. [] NECK: No jugular vein distension. [] HEENT: No cyanosis. No icterus. No pallor. [] HEART: Regular S1 and S2. No murmur, rub or gallop. [] LUNGS: Clear to auscultate bilaterally. [] ABDOMEN: Soft, nontender and nondistended. Positive bowel sounds. No guarding, rebound or tenderness. [] CENTRAL NERVOUS SYSTEM: Grossly nonfocal. [] EXTREMITIES: Lower extremities with 1+ edema bilaterally. Pulses palpable in the lower extremities, both dorsalis pedis and posterior tibial. [] Urinary Catheter Management: Millan: Cath Placed During This Visit: yes Urinary Catheter Date of Insertion: 06/06/22 Urinary Catheter Time of Insertion: 20:05 Data 06/10/22 03:18 06/10/22 03:18 A&P Assessment and plan (1) Essential hypertension: (2) RASHI (acute kidney injury): (3) Congestive heart failure: Plan Patient has moderate to severely reduced LV systolic function with EF of 30 to 35%. Stress test is not showing significant territory of ischemia. Likely nonischemic cardiomyopathy. Continue current medications. We will uptitrate carvedilol to 12.5 mg twice daily. We will also add amlodipine 5 mg daily. We will uptitrate hydralazine to 100 mg 3 times a day. Obtain renal ultrasound with Doppler to rule out renal artery stenosis Low sodium diet Thank you for involving us with care of this patient. We will continue to follow. Please call with questions Consult Attestations Medical Necessity Statement: Care expected to cross 2 midnights. Coding Level of Care Code Acute Code for [facility] Diagnoses Essential hypertension I10 RASHI (acute kidney injury) N17.9 Congestive heart failure I50.9
[2022-06-10] MEDS: amlodipine 5 mg Tablet PO (13:08)
[2022-06-10] MEDS: heparin 5,000 unit/mL INJ 1 mL 5000 UNIT SUBCUT (13:08)
--- NOTE | 2022-06-10 13:14 | PM.PN ---
Subjective Subjective: seen this am no acute events overnight BP still uncontrolled stress test completed yesterday pt off o2 and on room air 9L negative since admission Vitals/I&O/Wt Last Vital Signs Temp 98.3 F 06/10/22 11:58 Pulse 84 06/10/22 11:58 Resp 15 06/10/22 11:58 BP 133/86 06/10/22 11:58 Pulse Ox 94 06/10/22 11:58 O2 Del Method 06/10/22 11:58 O2 Flow Rate 2 06/09/22 11:59 FiO2 30 06/06/22 16:00 06/09/22 06/10/22 06/10/22 22:59 06:59 14:59 Intake Total 954 / 1668 240 / 1908 478 / 478 Output Total 1350 / 3450 1650 / 5100 1000 / 1000 Balance -396 / -1782 -1410 / -3192 -522 / -522 Weight last 48 hrs Weight 108.59 kg Weight 107.002 kg Physical Exam Narrative: Patient is clinically fluid overload Currently doing well on room air Anasarca Doing well on room air S1, S2 Lungs cta b/l Awake and alert nonfocal neuro exam Andrew catheter draining dilute urine Still hypertensive Urinary Catheter Management: Andrew: Cath Placed During This Visit: yes Reason for Continuing Indwelling Catheter: Acute Urinary Retention or Obstruction Urinary Catheter Date of Insertion: 06/06/22 Urinary Catheter Time of Insertion: 20:05 Data 06/10/22 03:18 06/10/22 03:18 A&P Assessment and plan (1) Congestive heart failure: (2) RASHI (acute kidney injury): (3) Hypertensive crisis: (4) Hypokalemia: (5) Essential hypertension: Plan #Acute systolic CHF exacerbation #Uncontrolled hypertension #Most likely non ischemic cardiomyopathy due to hypertension #RASHI most likely 2/2 Cardiorenal syndrome vs hypertensive nephropathy - COntinue on bumex 2 mg IV BID - Continue to monitor urine output - Remove andrew today - Pt 9L negative since admission - Cardiac stress test shows old infarct - DUe to RAHSI pt not a candidate for angiogram - Echo shows severely reduced EF - Will order for lifevest - Avoid nephrotonic agents at time - Will need to establish with cardiology outpatient and nephro at [facility] - Continue on hydralazine 100 TID, coreg 12.5 BID, amlodipine 5 daily, isordil 20 BID. - Cardiology on board. Recs appreciated - Renal US did not show renal artery stenosis. - Will need home O2 eval. Full Code DVT PPX: Heparin Attestations Medical Necessity Statement*: Continue to manage uncontrolled hypertension. Coding Level of Care Code Acute Code for [facility] Diagnoses Congestive heart failure I50.9 RASHI (acute kidney injury) N17.9 Hypertensive crisis I16.9 Hypokalemia E87.6 Essential hypertension I10
[2022-06-10] MEDS: hyDRALAzine 50 mg Tablet 100 MG PO ×2 (15:55→20:08)
[2022-06-10 16:33] LABS: ABG PCO2 50.4 mmHg (35-45); ABG PH Result 7.45 (7.35-7.45); Base Excess ABG 9.3 mmol/L (-2.0-2.0); Blood Gas Allen Test Pos; Blood Gas Operator Identificat WALCI; Blood Gas Sample Site Radial, right; Blood Gas Sample Type Arterial; Carboxyhemoglobin 1.3 %THgb (0.4-20.1); HCO3 ABG 34.8 mmol/L (22-26); HGB O2 Sat 93.2 % (95-100); Ionized Calcium Level - ABG 1.2 mmol/L (1.1-1.4); Methemoglobin 0.5 % (0.4-1.5); Oxygen Saturation ABG 94.9; Potassium Level - ABG 3.5 mmol/L (3.5-5.0); Total Hemoglobin 11.4 g/dL (14-18)
[2022-06-10] MEDS: carvedilol 12.5 mg Tablet PO (17:08)
[2022-06-11] VITALS (13 sets, daily range): BP systolic 116–183; BP diastolic 61–109; PULSE 72–90; RESP 14–19; TEMP 36.5–36.8; O2SAT 93–97
[2022-06-11 03:13] LABS: Basophils # 0.1 10^3/uL (0.0-0.1); Eosinophils # 0.3 10^3/uL (0.0-0.8); Eosinophils % 4.7 %; Hematocrit 36.2 % (42.0-52.0); Hemoglobin 11.2 g/dL (11.7-16.6); Lymphocytes # 1.8 10^3/uL (0.8-4.8); Lymphocytes % 25.5 %; Mean Corpuscular HGB Conc 30.9 g/dL (30.0-36.0); Mean Corpuscular Hemoglobin 27.7 pg (28.0-34.0); Mean Corpuscular Volume 89.6 fl (80-94); Monocytes # 0.6 10^3/uL (0.2-0.9); Monocytes % 8.6 %; Neutrophils # 4.32 10^3/uL (1.8-7.7); Neutrophils % 60.1 %; Nucleated Red Blood Cells % 0 %; Platelet Count 379 10^3/cmm (130-400); Red Blood Count 4.04 10^6/uL (4.1-5.3); Red Cell Distribution Width 13.2 % (12.1-15.1); White Blood Count 7.2 10^3/uL (4.0-10.0)
[2022-06-11 03:35] LABS: Anion Gap 9.5 (5-19); Blood Urea Nitrogen 29 mg/dL (6-20); Calcium 8.9 mg/dL (8.5-10.5); Carbon Dioxide 34 mmol/L (22-29); Chloride 97 mmol/L (98-107); Glomerular Filtration Rate 32.8 mL/min (90-130); Glucose 105 mg/dL (65-115); Magnesium 1.9 mg/dL (1.7-2.3); Osmolality Calculated 290 mOsm/kg (285-295); Potassium 3.5 mmol/L (3.5-5.1); Sodium 137 mmol/L (136-145)
[2022-06-11] MEDS: bumetanide 0.25 mg/mL SDV 10 mL 2 MG IVP (05:27)
[2022-06-11] MEDS: morphine IR 15 mg Tablet PO (07:35)
--- NOTE | 2022-06-11 07:44 | P.PN_ITS ---
Subjective Subjective: Patient continues to be hypertensive. Appears sleepy and drowsy today Vitals/I&O/Wt Last Vital Signs Temp 98 F 06/11/22 03:09 Pulse 87 06/11/22 03:27 Resp 18 06/11/22 07:35 BP 182/94 06/11/22 03:09 Pulse Ox 96 06/11/22 07:35 O2 Del Method 06/10/22 16:00 O2 Flow Rate 2 06/09/22 11:59 FiO2 30 06/06/22 16:00 06/10/22 06/11/22 06/11/22 22:59 06:59 14:59 Intake Total 120 / 598 300 / 898 Output Total 1886 / 2886 650 / 3536 1350 / 1350 Balance -1766 / -2288 -350 / -2638 -1350 / -1350 Weight last 48 hrs Weight 239 lb Weight 239 lb 6.4 oz Physical Exam Narrative: GENERAL: Patient is alert, awake and oriented x3. [] NECK: No jugular vein distension. [] HEENT: No cyanosis. No icterus. No pallor. [] HEART: Regular S1 and S2. No murmur, rub or gallop. [] LUNGS: Clear to auscultate bilaterally. [] ABDOMEN: Soft CENTRAL NERVOUS SYSTEM: Grossly nonfocal. [] EXTREMITIES: Lower extremities with 1+ edema bilaterally. Pulses palpable in the lower extremities, both dorsalis pedis and posterior tibial. [] Urinary Catheter Management: Millan: Cath Placed During This Visit: yes, but has since been removed by the nurse Reason for Continuing Indwelling Catheter: Decision to DC Catheter Urinary Catheter Date of Insertion: 06/06/22 Urinary Catheter Time of Insertion: 20:05 Date Urinary Catheter Removed: 06/10/22 Time Urinary Catheter Discontinued: 17:54 Data 06/11/22 02:50 06/11/22 02:50 A&P Assessment and plan (1) Essential hypertension: (2) RASHI (acute kidney injury): (3) Congestive heart failure: Plan Patient has moderate to severely reduced LV systolic function with EF of 30 to 35%. Stress test is not showing significant territory of ischemia. Likely n onischemic cardiomyopathy. Awaiting Lifevest Renal ultrasound does not show significant renal artery stenosis. We will uptitrate amlodipine to 10 mg and Coreg to 25 mg twice daily. Low sodium diet Workup for drowsiness per primary team Thank you for involving us with care of this patient. We will continue to follow. Please call with questions Attestations Medical Necessity Statement*: Care expected to cross 2 midnights. Coding Level of Care Code Acute Code for [facility] Diagnoses Essential hypertension I10 RASHI (acute kidney injury) N17.9 Congestive heart failure I50.9
[2022-06-11] MEDS: sennosides-docusate Tablet 1 TAB PO (08:14)
[2022-06-11] MEDS: carvedilol 25 mg Tablet PO ×2 (08:14→18:13)
[2022-06-11] MEDS: potassium chloride ER 20 mEq Tablet 40 MEQ PO (08:14)
[2022-06-11] MEDS: hyDRALAzine 50 mg Tablet 100 MG PO (08:15)
[2022-06-11] MEDS: isosorbide dinitrate 20 mg Tablet PO ×2 (08:15→18:13)
[2022-06-11] MEDS: amlodipine 10 mg Tablet PO (08:15)
--- NOTE | 2022-06-11 12:12 | CT_ITS ---
WS: [id number] CT HEAD NONCONTRAST HISTORY: altered mentation TECHNIQUE: Contiguous axial imaging performed through the brain in 3.0 mm imaging. Bone and soft tiss ue windows. Sagittal and coronal reformats reviewed. All CT scans at [facility] use at least one of these dose optimization techniques: automated exposure control; mA and/or kV adjustment per pa tient size (includes targeted exams where dose is matched to clinical indication); or iterative recon struction. DLP: 1069.28 mGy.cm COMPARISON: 10/02/2018 No acute intracranial hemorrhage, midline shift or mass effect. No atrophy or prior infarcts or herniation. Ventricles: Normal size with no hydrocephalus. Paranasal sinuses: As visualized are clear. Mastoid air cells: Well pneumatized. Calvarium and scalp: Skull is intact with no soft tissue edema or swelling. CT/CT head wo con* [id number] IMPRESSION: Negative head CT.
--- NOTE | 2022-06-11 12:55 | P.PN_ITS ---
Subjective Subjective: Follow-up with your blood pressure appears to be a lot better compared to before. Patient however is lethargic. His significant other in the room states that over time his blood pressure is normal he tends to be more lethargic (is higher he tends to be okay. Nursing staff reported something sim ilar. We did a blood gas on the patient yesterday which was compensated. Discussed with patient regarding LifeVest and he is interested. That has been ordered. Pending fitting. Vitals/I&O/Wt Last Vital Signs Temp 97.7 F 06/11/22 08:00 Pulse 90 06/11/22 08:00 Resp 14 06/11/22 08:00 BP 183/109 06/11/22 08:00 Pulse Ox 97 06/11/22 08:10 O2 Del Method 06/11/22 07:47 O2 Flow Rate 2 06/09/22 11:59 FiO2 30 06/06/22 16:00 06/10/22 06/11/22 06/11/22 22:59 06:59 14:59 Intake Total 120 / 598 300 / 898 480 / 480 Output Total 1886 / 2886 650 / 3536 2049 / 2049 Balance -1766 / -2288 -350 / -2638 -1570 / -1570 Weight last 48 hrs Weight 108.409 kg Weight 108.59 kg Physical Exam Narrative: Appears euvolemic today. Currently doing well on room air No lower extremity edema noted. Doing well on room air, saturating 97%. S1, S2 Lungs cta b/l Awake and alert nonfocal neuro exam Millan catheter removed yesterday. Urinary Catheter Management: Millan: Cath Placed During This Visit: yes, but has since been removed by the nurse Reason for Continuing Indwelling Catheter: Decision to DC Catheter Urinary Catheter Date of Insertion: 06/06/22 Urinary Catheter Time of Insertion: 20:05 Date Urinary Catheter Removed: 06/10/22 Time Urinary Catheter Discontinued: 17:54 Data 06/11/22 02:50 06/11/22 02:50 A&P Assessment and plan (1) Congestive heart failure: (2) RASHI (acute kidney injury): (3) Hypertensive crisis: (4) Hypokalemia: (5) Essential hypertension: Plan #Acute systolic CHF exacerbation #Uncontrolled hypertension #Most likely non ischemic cardiomyopathy due to hypertension #RASHI most likely 2/2 Cardiorenal syndrome vs hypertensive nephropathy -Stop Bumex 2 mg IV twice daily. Starting tomorrow we will place on Lasix 40 daily. - Pt 13L negative since admission - Cardiac stress test shows old infarct - DUe to RASHI pt not a candidate for angiogram - Echo shows severely reduced EF - Will order for lifevest - Avoid nephrotonic agents at time - Will need to establish with cardiology outpatient and nephro at [facility] - Continue on hydralazine 100 TID, coreg 12.5 BID, amlodipine 5 daily, isordil 20 BID. - Cardiology on board. Recs appreciated - Renal US did not show renal artery stenosis. - Will need home O2 eval. ? Discontinue morphine ? Millan catheter discontinued. Patient able to void on his own. LifeVest pending ? Reduce hydralazine to 75 3 times daily. Increase Coreg to 25 twice daily. -Patient is lethargic today. We will stop the morphine, reduce dose of blood pressure medication. Recheck of gas. Hopefully mentation will improve. Check drug screen. CT head. I suspect this may be secondary to morphine use. ? Patient would also require sleep study as an outpatient as during sleep he does desaturate down to 80s. Patient may have underlying obstructive sleep apnea. Full Code DVT PPX: Heparin Attestations Medical Necessity Statement*: Continue to manage uncontrolled hypertension. Coding Level of Care Code Established Pt Acute Code for Chg Fwd Patient Type Established History Expanded Problem Focused Exam Expanded Problem Focused Medical Decision Making Moderate Complexity Diagnoses Congestive heart failure I50.9 ARSHI (acute kidney injury) N17.9 Hypertensive crisis I16.9 Hypokalemia E87.6 Essential hypertension I10 Time Spent (min) 25
[2022-06-11] MEDS: heparin 5,000 unit/mL INJ 1 mL 5000 UNIT SUBCUT ×2 (13:08→23:06)
[2022-06-11 13:31] LABS: ABG PH Result 7.48 (7.35-7.45); Alveolar-Arterial Oxygen Gradi 1.9 mmHg (5-10); Arterial Blood Gas Hematocrit 35.1 % (42-52); Base Excess ABG 10.4 mmol/L (-2.0-2.0); Blood Gas Allen Test Pos; Blood Gas Operator Identificat MONRO; Blood Gas Sample Site Radial, left; Blood Gas Sample Type Arterial; Carboxyhemoglobin 1.7 %THgb (0.4-20.1); HCO3 ABG 35.2 mmol/L (22-26); HGB O2 Sat 95.3 % (95-100); Ionized Calcium Level - ABG 1.2 mmol/L (1.1-1.4); Methemoglobin 0.4 % (0.4-1.5); Oxygen Device ROOM AIR; Oxygen Saturation ABG 97.3; PO2 ABG 79.2 mmHg (80.0-100.0); Potassium Level - ABG 3.5 mmol/L (3.5-5.0); Total Hemoglobin 11.5 g/dL (14-18)
[2022-06-11] MEDS: sodium chloride 0.9% 250 ML IV (14:02)
[2022-06-11] MEDS: hyDRALAzine 50 mg Tablet 75 MG PO ×2 (14:18→19:43)
[2022-06-11 15:30] LABS: Amphetamines Screen Urine Positive (Negative); Barbiturates Screen Urine Negative (Negative); Benzodiazepines Screen Urine Positive (Negative); Cocaine Screen Urine Negative (Negative); Opiate Screen Urine Positive (Negative); PCP Screen Urine Negative (Negative); THC Screen Urine Negative (Negative)
[2022-06-11] MEDS: acetaminophen 325 mg Tablet 650 MG PO (19:46)
[2022-06-11] MEDS: temazepam 15 mg Capsule PO (23:06)
--- NOTE | 2022-06-11 23:22 | PC.NURSE ---
Patient is c/o severe anxiety tonight. He was ok with giving tylenol earlier for his pain. However he does appear very anxious. Informed Dr Stevenson and received Restoril 15mg PO once. RBVO
[2022-06-12 03:31] LABS: Basophils % 0.6 %; Eosinophils # 0.4 10^3/uL (0.0-0.8); Eosinophils % 5.3 %; Hematocrit 34.6 % (42.0-52.0); Hemoglobin 10.6 g/dL (11.7-16.6); Lymphocytes % 28.1 %; Mean Corpuscular HGB Conc 30.6 g/dL (30.0-36.0); Mean Corpuscular Hemoglobin 27.2 pg (28.0-34.0); Mean Corpuscular Volume 88.7 fl (80-94); Mean Platelet Volume 8.6 fL (7.4-10.4); Monocytes # 0.6 10^3/uL (0.2-0.9); Monocytes % 8.2 %; Neutrophils # 4.12 10^3/uL (1.8-7.7); Neutrophils % 57.5 %; Nucleated Red Blood Cells % 0 %; Platelet Count 338 10^3/cmm (130-400); Red Cell Distribution Width 13.4 % (12.1-15.1); White Blood Count 7.2 10^3/uL (4.0-10.0)
[2022-06-12 04:00] LABS: Anion Gap 12.7 (5-19); Blood Urea Nitrogen 28 mg/dL (6-20); Calcium 8.8 mg/dL (8.5-10.5); Carbon Dioxide 31 mmol/L (22-29); Chloride 98 mmol/L (98-107); Glomerular Filtration Rate 38.9 mL/min (90-130); Glucose 91 mg/dL (65-115); Osmolality Calculated 291 mOsm/kg (285-295); Potassium 3.7 mmol/L (3.5-5.1); Sodium 138 mmol/L (136-145)
[2022-06-12 04:02] VITALS: BP 174/110; PULSE 84; RESP 19
[2022-06-12 04:12] LABS: Creatinine Clr Calc Pharmacy 62.7831
[2022-06-12 06:31] VITALS: PULSE 85
--- NOTE | 2022-06-12 07:45 | PM.PN ---
Subjective Subjective: Patient is stable. Blood pressure is better. Vitals/I&O/Wt Last Vital Signs Temp 97.9 F 06/11/22 20:00 Pulse 85 06/12/22 06:31 Resp 19 H 06/12/22 04:02 BP 174/110 06/12/22 04:02 Pulse Ox 96 06/11/22 23:17 O2 Del Method 06/11/22 23:17 O2 Flow Rate 2 06/09/22 11:59 FiO2 30 06/06/22 16:00 06/11/22 06/12/22 06/12/22 22:59 06:59 14:59 Intake Total 970 / 1810 240 / 2050 Output Total 800 / 3150 700 / 3850 Balance 170 / -1340 -460 / -1800 Weight last 48 hrs Weight 238 lb 6.4 oz Weight 239 lb Physical Exam Narrative: GENERAL: Patient is alert, awake and oriented x3. [] NECK: No jugular vein distension. [] HEENT: No cyanosis. No icterus. No pallor. [] HEART: Regular S1 and S2. No murmur, rub or gallop. [] LUNGS: Clear to auscultate bilaterally. [] ABDOMEN: Soft CENTRAL NERVOUS SYSTEM: Grossly nonfocal. [] EXTREMITIES: Lower extremities with 1+ edema bilaterally. Pulses palpable in the lower extremities, both dorsalis pedis and posterior tibial. [] Urinary Catheter Management: Millan: Cath Placed During This Visit: yes, but has since been removed by the nurse Reason for Continuing Indwelling Catheter: Decision to DC Catheter Urinary Catheter Date of Insertion: 06/06/22 Urinary Catheter Time of Insertion: 20:05 Date Urinary Catheter Removed: 06/10/22 Time Urinary Catheter Discontinued: 17:54 Data 06/12/22 03:16 06/12/22 03:16 A&P Assessment and plan (1) Essential hypertension: (2) RASHI (acute kidney injury): (3) Congestive heart failure: Plan Patient is stable. Continue current medications. Nonischemic cardiomyopathy. Awaiting LifeVest. Thank you for involving us with care of this patient. Please call with questions Attestations Medical Necessity Statement*: And expected to cross 2 midnights. Coding Level of Care Code Acute Code for [facility] Diagnoses Essential hypertension I10 RASHI (acute kidney injury) N17.9 Congestive heart failure I50.9
[2022-06-12 08:00] VITALS: BP 184/95; PULSE 86; PULSE 90; RESP 10; RESP 16; TEMP 36.7
[2022-06-12 08:23] VITALS: PULSE 90; RESP 16; O2SAT 96
[2022-06-12] MEDS: amlodipine 10 mg Tablet PO (09:05)
[2022-06-12] MEDS: sennosides-docusate Tablet 1 TAB PO (09:06)
[2022-06-12] MEDS: isosorbide dinitrate 20 mg Tablet PO (09:06)
[2022-06-12] MEDS: potassium chloride ER 20 mEq Tablet 40 MEQ PO (09:06)
[2022-06-12] MEDS: carvedilol 25 mg Tablet PO (09:06)
[2022-06-12] MEDS: hyDRALAzine 50 mg Tablet 75 MG PO ×2 (09:06→16:02)
--- NOTE | 2022-06-12 11:47 | PM.DCS ---
Discharge Providers Date of Admission: 06/06/22 12:50 Date of Discharge: June 12, 2022 Attending Provider at Admission: Crys Stevenson MD Attending Provider at Discharge: Marianna Ayala MD Diagnoses at Discharge Discharge Diagnosis (1) Essential hypertension: Status: Acute (2) RASHI (acute kidney injury): Status: Acute (3) Congestive heart failure: Status: Acute Reason for Visit Reason for Visit: extra fluid in extremities Brief History: As per Dr. Stevenson Doug Frank is a 42 year old male with no previous history of CHF history of IV drug abuse, hypertension, noncompliant, presented with worsening of swelling extremities.? Patient is stating that he has been noticing swelling for quite some time but recently has gotten worse, swelling has extending all the way up to his testicles now.? He has been noticing orthopnea, PND,.? He was struggling financially hence borrowing Lasix from his friends.? He is not taking any medications.? Has not seen a doctor in a long time.? Looking for a restaurant at this moment Never had any [place], endorsing to use of IV cocaine and methamphetamine.? He does vap In the ER he was diagnosed with systolic CHF exacerbation, hypertensive emergency with flash pulm edema Hospital Course Hospital Course Patient was initially admitted for hypertensive emergency along with flash pulmonary edema. He required nitroglycerin drip. There is a history of noncompliance with his antihypertensives and history of IV drug abuse as well. Urine drug screen was negative on admission. Patient also had an RASHI which was most likely cardiorenal syndrome. He had lower extremity edema. Patient was aggressively diuresed with Bumex IV which was later converted to oral at discharge. Patient did require BiPAP for a little bit of time during hospital stay. Renal ultrasound was negative for renal artery stenosis. Stress test was pursued which showed reduced EF of 30 to 35% and small sized prior infarct with small area of rogelio-infarct ischemia in left circumflex artery territory. Initially BNP was more than 30,000. Cardiology was eventually consulted for difficult to control blood pressure despite 4 antihypertensives. Patient most likely has nonischemic cardiomyopathy. Cannot do angiogram due to renal function. Patient was optimized on antihypertensives. Due to being difficult to control a second urine drug screen was obtained which was now positive for amphetamines. Patient will be set up with [facility] today and will be discharged home in stable condition on antihypertensives. He will follow-up with primary care, cardiology as an outpatient. All questions answered. Home oxygen evaluation will be obtained as well. Patient will be discharged home in stable condition. He is at this time chest pain-free. Kidney function is improving. He will need close follow-up with his doctors at discharge. Physical Exam Narrative: Appears euvolemic today. Currently doing well on room air No lower extremity edema noted. Doing well on room air, saturating 97%. S1, S2 Lungs cta b/l Awake and alert nonfocal neuro exam Millan catheter removed yesterday. Urinary Catheter Management: Millan: Cath Placed During This Visit: yes, but has since been removed by the nurse Reason for Continuing Indwelling Catheter: Decision to DC Catheter Urinary Catheter Date of Insertion: 06/06/22 Urinary Catheter Time of Insertion: 20:05 Date Urinary Catheter Removed: 06/10/22 Time Urinary Catheter Discontinued: 17:54 Discharge Data Studies Completed and Pending Completed Studies During Hospitalization Category Date Time Status CT head wo con* [id number] Stat Cat Scan 06/11/22 12:12 Completed Sestamibi Stress Test Request Routine Exams 06/08/22 11:02 Draft XR chest 1V portable [id number] Urgent Exams 06/06/22 10:27 Completed NM rochelle perf SPECT r/s* [id number] Routine Nuc Med 06/09/22 11:02 Completed US echo complete [CV. echo complete* [id number]] Urgent Ultrasound 06/06/22 12:32 Completed US renal BI* [id number] Urgent Ultrasound 06/10/22 08:24 Completed Radiology Impressions Chest X-Ray 06/06/22 10:27 IMPRESSION: 1. Interval cardiac enlargement with increased pulmonary vascularity and small volume right-sided pleural effusion. Mild CHF considered likely. Renal Ultrasound 06/10/22 08:24 IMPRESSION: Normal renal ultrasound. Head CT 06/11/22 12:12 IMPRESSION: Negative head CT. Laboratory Results WBC 7.2 10^3/uL (4.0-10.0) 06/12/22 03:16 RBC 3.90 10^6/uL (4.1-5.3) L 06/12/22 03:16 Hgb 10.6 g/dL (11.7-16.6) L 06/12/22 03:16 Hct 34.6 % (42.0-52.0) L 06/12/22 03:16 MCV 88.7 fl (80-94) 06/12/22 03:16 MCH 27.2 pg (28.0-34.0) L 06/12/22 03:16 MCHC 30.6 g/dL (30.0-36.0) 06/12/22 03:16 RDW 13.4 % (12.1-15.1) 06/12/22 03:16 Plt Count 338 10^3/cmm (130-400) 06/12/22 03:16 MPV 8.6 fL (7.4-10.4) 06/12/22 03:16 Neut % (Auto) 57.5 % 06/12/22 03:16 Lymph % (Auto) 28.1 % 06/12/22 03:16 Creek % (Auto) 8.2 % 06/12/22 03:16 Eos % (Auto) 5.3 % 06/12/22 03:16 Baso % (Auto) 0.6 % 06/12/22 03:16 Neut # (Auto) 4.12 10^3/uL (1.8-7.7) 06/12/22 03:16 Lymph # (Auto) 2.0 10^3/uL (0.8-4.8) 06/12/22 03:16 Creek # (Auto) 0.6 10^3/uL (0.2-0.9) 06/12/22 03:16 Eos # (Auto) 0.4 10^3/uL (0.0-0.8) 06/12/22 03:16 Baso # (Auto) 0.0 10^3/uL (0.0-0.1) 06/12/22 03:16 Nucleated RBC % (auto) 0 % 06/12/22 03:16 Nucleated RBCs # 0.0 /100WBC 06/12/22 03:16 Specimen Type Arterial 06/11/22 13:17 Sample Site Radial, left 06/11/22 13:17 ABG pH 7.48 (7.35-7.45) H 06/11/22 13:17 ABG pCO2 47.0 mmHg (35-45) H 06/11/22 13:17 ABG pO2 79.2 mmHg (80.0-100.0) L 06/11/22 13:17 ABG HCO3 35.2 mmol/L (22-26) H 06/11/22 13:17 ABG O2 Saturation 97.3 06/11/22 13:17 ABG Base Excess 10.4 mmol/L (-2.0-2.0) H 06/11/22 13:17 Amanuel Test Pos 06/11/22 13:17 A-a O2 Gradient 1.9 mmHg (5-10) L 06/11/22 13:17 Hematocrit 35.1 % (42-52) L 06/11/22 13:17 Hgb O2 Saturation 95.3 % (95-100) 06/11/22 13:17 Carboxyhemoglobin 1.7 %THgb (0.4-20.1) 06/11/22 13:17 Methemoglobin 0.4 % (0.4-1.5) 06/11/22 13:17 Total Hemoglobin 11.5 g/dL (14-18) L 06/11/22 13:17 Sodium 137.0 mmol/L (131-143) 06/11/22 13:17 Potassium 3.5 mmol/L (3.5-5.0) 06/11/22 13:17 Glucose 120.0 mg/dL (70-115) H 06/11/22 13:17 Ionized Calcium 1.2 mmol/L (1.1-1.4) 06/11/22 13:17 O2 Delivery Device Room air 06/11/22 13:17 FiO2 21.0 % 06/10/22 16:22 Teletray Operator ID Monro 06/11/22 13:17 Sodium 138 mmol/L (136-145) 06/12/22 03:16 Potassium 3.7 mmol/L (3.5-5.1) 06/12/22 03:16 Chloride 98 mmol/L (98-107) 06/12/22 03:16 Carbon Dioxide 31 mmol/L (22-29) H 06/12/22 03:16 Anion Gap 12.7 (5-19) 06/12/22 03:16 BUN 28 mg/dL (6-20) H 06/12/22 03:16 Creatinine 1.9 mg/dL (0.7-1.2) H 06/12/22 03:16 GFR Calculation 38.9 mL/min (90-130) L 06/12/22 03:16 Glucose 91 mg/dL (65-115) 06/12/22 03:16 Calculated Osmolality 291 mOsm/kg (285-295) 06/12/22 03:16 Calcium 8.8 mg/dL (8.5-10.5) 06/12/22 03:16 Magnesium 2.0 mg/dL (1.7-2.3) 06/12/22 03:16 Total Bilirubin 1.3 mg/dL (0.15-1.2) H 06/06/22 11:10 AST 56 U/L (0-40) H 06/06/22 11:10 ALT 38 U/L (0-41) 06/06/22 11:10 Alkaline Phosphatase 101 U/L (40-130) 06/06/22 11:10 Troponin T Baseline 93 ng/L (0-15) H 06/06/22 11:10 Troponin T 120 Minute 82.70 ng/L (0-15) H 06/06/22 14:24 Delta Troponin T -10.30 ABS# (0-10) L 06/06/22 14:24 Troponin T Hi Sens 6Hr 86.15 ng/L (0-15) H 06/06/22 18:22 Troponin T Hi Sens 6Hr Delta -6.85 ng/L (0-12) L 06/06/22 18:22 NT-Pro-B Natriuret Pep 69609 pg/mL (0-125) H 06/06/22 11:10 Total Protein 7.8 g/dL (6.6-8.7) 06/06/22 11:10 Albumin 3.8 g/dL (3.5-5.2) 06/06/22 11:10 Globulin 4.0 g/dL (1.3-4.6) 06/06/22 11:10 TSH 4.25 uIU/mL (0.27-4.20) H 06/06/22 18:22 Urine Color Yellow (Yellow) 06/06/22 12:21 Urine Appearance Clear (CLEAR) 06/06/22 12:21 Urine pH 7 (5-7) 06/06/22 12:21 Ur Specific [place] 1.005 (1.005-1.030) 06/06/22 12:21 Urine Protein 2+ (Negative) H 06/06/22 12:21 Urine Glucose (UA) Norm (Normal) 06/06/22 12:21 Urine Ketones Negative (Negative) 06/06/22 12:21 Urine Blood Trace (Negative) H 06/06/22 12:21 Urine Nitrate Negative (Negative) 06/06/22 12:21 Urine Bilirubin Neg (Negative) 06/06/22 12:21 Urine Urobilinogen Norm mg/dL (Negative) 06/06/22 12:21 Ur Leukocyte Esterase Negative (Negative) 06/06/22 12:21 Urine RBC 0-4 /hpf (0-2) H 06/06/22 12:21 Urine WBC 0-4 /hpf (0-5) H 06/06/22 12:21 Ur Squamous Epith Cells Rare /hpf (0-5) 06/06/22 12:21 Amorphous Sediment Not Reportable 06/06/22 12:21 Urine Bacteria Trace /hpf (NONE) 06/06/22 12:21 Urine Opiates Screen Positive ng/mL (Negative) H 06/11/22 14:32 Ur Barbiturates Screen Negative ng/mL (Negative) 06/11/22 14:32 Ur Phencyclidine Scrn Negative ng/mL (Negative) 06/11/22 14:32 Ur Amphetamines Screen Positive ng/mL (Negative) H 06/11/22 14:32 U Benzodiazepines Scrn Positive ng/mL (Negative) H 06/11/22 14:32 Urine Cocaine Screen Negative ng/mL (Negative) 06/11/22 14:32 U Marijuana (THC) Screen Negative ng/mL (Negative) 06/11/22 14:32 Vitals Last Vital Signs Temp 98.0 F 06/12/22 08:00 Pulse 90 06/12/22 08:23 Resp 16 06/12/22 08:23 BP 184/95 06/12/22 08:00 Pulse Ox 96 06/12/22 08:23 O2 Del Method 06/12/22 08:23 O2 Flow Rate 2 06/09/22 11:59 FiO2 30 06/06/22 16:00 Discharge Plan Discharge Patient Disposition: Home Condition: Stable Prescriptions: New isosorbide dinitrate 20 mg Tablet 20 mg PO BID 30 Days Qty: 60 0RF potassium chloride [Klor-Con M20] 20 mEq Tablet,Er Particles/Crystals 20 meq PO DAILY 30 Days Qty: 30 0RF amlodipine 10 mg Tablet 10 mg PO DAILY 30 Days Qty: 30 0RF furosemide [Lasix] 40 mg tablet 40 mg PO DAILY 30 Days Qty: 30 0RF aspirin 81 mg capsule 81 mg PO DAILY 30 Days Qty: 30 0RF hydralazine 100 mg tablet 100 mg PO TID Qty: 90 0RF Continued carvedilol 25 mg tablet 25 mg PO BID 30 Days Qty: 60 0RF Rx Instructions: must administer with a meal/food Discontinued lisinopril 20 mg tablet 20 mg PO BID PRN (Reason: Blood Pressure) amlodipine 5 mg tablet 5 mg PO DAILY PRN (Reason: Blood Pressure) hydralazine 50 mg tablet 50 mg PO TID PRN (Reason: Blood Pressure) Discharge Orders: Discharge Order (Routine); Ordered 06/12/22 Ordered By: Marianna Ayala Referrals: Krzysztof Ramsay M.D [Physician] - 1 month Nhung Keith FNP [Nurse Practitioner] - 7-10 days Patient Instructions: Opioid Safety Activity Restrictions/Additional Instructions: Please refrain from amphetamine use Please follow up with PCP within 4-7 days of discharge and cardiology as directed Use lifevest as instructed. Please return to ER if you greater than 3 lb weight gain in 48 hour period of > 5 LB weight gain in 3 days period. Weight yourself daily. Return to ER if you experience new symptoms or worsening of existing symptoms. Discharge Attestations Time Spent in Discharge Care*: greater than 30 min Quality Metrics Clinical Quality Measures [ No reported AMI, CVA or VTE this stay] Coding Level of Care Code Acute Code for [facility] Fwd Diagnoses Essential hypertension I10 RASHI (acute kidney injury) N17.9 Congestive heart failure I50.9
[2022-06-12 12:00] VITALS: BP 123/59; PULSE 77; RESP 25; O2SAT 97
[2022-06-12] MEDS: heparin 5,000 unit/mL INJ 1 mL 5000 UNIT SUBCUT (12:11)
[2022-06-12 16:11] VITALS: BP 151/86; PULSE 83; RESP 18; O2SAT 99
--- NOTE | 2022-06-12 17:20 | PC.NURSE ---
pt discharged with belongings and discharge instructions. Voices understanding of d/c instructions. IV removed with cathlon intact.
== END 2022-06-12 17:18 | disposition home or self-care (01) | DRG 291 ==
LOC: ER 12:34 → ICU 12:50 → CSU 06-08 18:33
PROVIDERS: Physician Assistant; Admitting Provider Internal Medicine; Emergency Provider Family Medicine; Visit Provider Internal Medicine
DX: I13.0 Hypertensive heart and chronic kidney disease with heart failure and stage 1 through stage 4 chronic kidney disease, or unspecified chronic kidney disease (principal); I50.21 Acute systolic (congestive) heart failure; I16.1 Hypertensive emergency; N17.9 Acute kidney failure, unspecified; I42.8 Other cardiomyopathies; N18.9 Chronic kidney disease, unspecified; F14.10 Cocaine abuse, uncomplicated; F15.10 Other stimulant abuse, uncomplicated; T50.906A Underdosing of unspecified drugs, medicaments and biological substances, initial encounter; Z91.128 Patient's intentional underdosing of medication regimen for other reason; F17.290 Nicotine dependence, other tobacco product, uncomplicated; I25.2 Old myocardial infarction; E87.6 Hypokalemia
CPT/HCPCS: 36415; 36600; 51702; 70450; 71045; 76770; 78452; 80048; 80051; 80053; 80306; 81001; 82330; 82805; 83735; 83880; 84443; 84484; 85025; 93005; 93017; 93306; 94660; 94664; 94760; 96365; 96366; 96372; 96374; 96375; 99291; A9500; J1644; J1940; J2405; J2785; J3480; J3490; J7050

== ENCOUNTER 2022-06-20 11:31 | Outpatient (CLI) | payer OTHER, SELFPAY ==
[2022-06-20 12:46] LABS: Anion Gap 11.4 (5-19); Blood Urea Nitrogen 39 mg/dL (6-20); Calcium 9.9 mg/dL (8.5-10.5); Carbon Dioxide 35 mmol/L (22-29); Chloride 90 mmol/L (98-107); Glomerular Filtration Rate 29.7 mL/min (90-130); Glucose 86 mg/dL (65-115); NT Pro B Type Natriuretic Pept 2713 pg/mL (0-125); Osmolality Calculated 285 mOsm/kg (285-295); Potassium 3.4 mmol/L (3.5-5.1); Sodium 133 mmol/L (136-145)
== END 2022-06-20 11:32 | disposition home or self-care (01) ==
LOC: LAB 11:34
PROVIDERS: Visit Provider Internal Medicine
DX: I10 Essential (primary) hypertension (principal); I50.9 Heart failure, unspecified
CPT/HCPCS: 80048; 83880

== ENCOUNTER → 2022-06-26 09:19 | Outpatient (BNVA) | payer OTHER, SELFPAY | PROVIDERS: Visit Provider Nurse Practitioner Family | DX: I11.0 Hypertensive heart disease with heart failure (principal); I50.9 Heart failure, unspecified; F17.290 Nicotine dependence, other tobacco product, uncomplicated; R07.9 Chest pain, unspecified; R00.2 Palpitations | CPT/HCPCS: 36415; 80048; 83880; 99214 ==

== ENCOUNTER → 2022-08-27 14:12 | Outpatient (BNVA) | payer OTHER, SELFPAY | PROVIDERS: PCP Emergency Medicine Emergency Medical Services; Visit Provider Internal Medicine | DX: I13.0 Hypertensive heart and chronic kidney disease with heart failure and stage 1 through stage 4 chronic kidney disease, or unspecified chronic kidney disease (principal); F17.290 Nicotine dependence, other tobacco product, uncomplicated; N18.9 Chronic kidney disease, unspecified; I50.9 Heart failure, unspecified; Z79.84 Long term (current) use of oral hypoglycemic drugs; E87.6 Hypokalemia; R00.2 Palpitations | CPT/HCPCS: 36415; 80048; 83880; 99214 ==

== ENCOUNTER 2022-09-23 11:03 | Outpatient (CLI) | payer OTHER, SELFPAY ==
--- NOTE | 2022-09-23 11:15 | USCV_ITS ---
Doug Frank Age: 42 Gender: M : 1980 Exam Date: 09/23/2022 11:36 Ordering Phys: Nhung Keith Technologist: ELEANOR [place] [facility] [place] Indication: ICD EVAL, LIMITED FOR EF ONLY BP: 130 / 70 HR: 60 Rhythm: Sinus Technical Quality: Adequate MEASUREMENTS (Male / Female) Normal Values 2D ECHO LV Ejection Fraction MOD 2C 59.5 % LV Ejection Fraction 2C AL 58.8 % LA Diameter 3.6 cm LA Width 3.7 cm LA Height 4.7 cm RA Width 3.2 cm RA Height 5.1 cm Aorta at Sinotubular Diameter 2.7 cm IVC Diameter 1.0 cm M-MODE Aortic Annulus Diameter 3.6 cm LA Ao Ratio MM 1.0 MV E Point Septal Separation 0.4 cm DOPPLER Right Atrial Pressure 8.0 mmHg FINDINGS Left Ventricle Right Ventricle Right Atrium Left Atrium Mitral Valve Aortic Valve Tricuspid Valve Pulmonic Valve Pericardium Aorta IVC CONCLUSIONS Limited echocardiogram performed to assess LV systolic motion. LV systolic unction is normal with EF of 55 to 60%. No regional wall motion abnormalities are seen. Compared to prior echocardiogram from 05/2022, LV systolic function has improved and is normal now. Krzysztof Ramsay MD (Electronically Signed) Final Date: 01 Oct 2022 08:23 S
== END 2022-09-23 11:04 | disposition home or self-care (01) ==
PROVIDERS: PCP Emergency Medicine Emergency Medical Services; Visit Provider Nurse Practitioner Family
DX: I11.0 Hypertensive heart disease with heart failure (principal); I50.9 Heart failure, unspecified
CPT/HCPCS: 36415; 80048; 83880; 93308; 99214

== ENCOUNTER 2022-10-09 14:02 | Outpatient (CLI) | payer OTHER, SELFPAY ==
[2022-10-09 15:49] LABS: Albumin Level 4.2 g/dL (3.5-5.2); Anion Gap 13.4 (5-19); Blood Urea Nitrogen 21 mg/dL (6-20); Carbon Dioxide 28 mmol/L (22-29); Chloride 100 mmol/L (98-107); Glomerular Filtration Rate 38.9 mL/min (90-130); Glucose 110 mg/dL (65-115); Phosphorus 2.4 mg/dL (2.5-4.5); Potassium 3.4 mmol/L (3.5-5.1); Sodium 138 mmol/L (136-145)
[2022-10-09 16:05] LABS: 25 Hydroxy Vitamin D 41 ng/mL (30-100)
[2022-10-09 16:18] LABS: Parathyroid Hormone 59.5 pg/mL (15-65)
[2022-10-09 16:19] LABS: Calcium 9.1 mg/dL (8.5-10.5)
== END 2022-10-09 14:03 | disposition home or self-care (01) ==
LOC: LAB 14:06
PROVIDERS: PCP Emergency Medicine Emergency Medical Services; Visit Provider Internal Medicine Nephrology
DX: N18.32 Chronic kidney disease, stage 3b (principal)
CPT/HCPCS: 36415; 80069; 82306; 82310; 83970

== ENCOUNTER 2022-10-30 20:00 | Outpatient (CLI) | payer OTHER, SELFPAY | END 2022-10-30 20:01 | disposition home or self-care (01) | LOC: SLEEP 10-31 05:47 | PROVIDERS: PCP Emergency Medicine Emergency Medical Services; Visit Provider Emergency Medicine Emergency Medical Services | DX: G47.33 Obstructive sleep apnea (adult) (pediatric) (principal) | CPT/HCPCS: 95810 ==

== ENCOUNTER 2023-05-06 20:00 | Outpatient (CLI) | payer OTHER, SELFPAY | END 2023-05-06 20:01 | disposition home or self-care (01) | LOC: SLEEP 05-07 05:26 | PROVIDERS: PCP Emergency Medicine Emergency Medical Services; Visit Provider Emergency Medicine Emergency Medical Services | DX: G47.33 Obstructive sleep apnea (adult) (pediatric) (principal) | CPT/HCPCS: 95811 ==

== ENCOUNTER 2023-06-14 15:38 | Emergency (ER) | payer OTHER, SELFPAY ==
[2023-06-14 15:43] VITALS: BP 153/94; PULSE 71; RESP 18; TEMP 36.5; O2SAT 97; BMI 38.7
--- NOTE | 2023-06-14 16:28 | W.ED.EXTPRO ---
HPI - Extremity Problem General: Chief complaint: Extremity Injury, Lower Stated complaint: left leg pain Time Seen by Provider: 06/14/23 16:17 Source: patient Mode of arrival: ambulatory Limitations: no limitations History of Present Illness: 43-year-old male states he was playing basketball last Thursday states he felt a pop in his left lower leg at the calf he states has been having pain in that calf since then especially with walking has had some swelling as well. He rates his pain an 8 out of 10 currently denies any knee or ankle pain. Associated symptoms: Deny chest pain, fever(s) or rash Review of Systems Const: Denies: fever(s) or chills ENMT: Denies: throat pain or dental pain Card: Denies: chest pain Resp: Denies: dyspnea GI: Denies: abdominal pain, nausea, vomiting or diarrhea Musc: Reports: extremity pain and extremity swelling; Denies: neck pain or back pain Skin/Breast: Denies: rash Neuro: Denies: headache(s) PFS ED PFSH: Medical History Intravenous drug abuse Essential hypertension Family History Other CAD (coronary artery disease) Social History Smoking and tobacco/nicotine status: current every day tobacco/nicotine user e-cigarettes E-Cigarette Details: e-cigarette and vaporizer device Alcohol intake: current Alcohol intake frequency: few times a month Substance/Drug Use: current Physical Exam Const: COMMON NORMALS: no acute distress, patient oriented x3 and healthy appearing HENMT: COMMON NORMALS: normocephalic HEAD & SCALP: normocephalic Eye: COMMON NORMALS: conjunctivae normal CONJUNCTIVA: Yes conjunctivae normal Neck/C-Spine: COMMON NORMALS: full ROM Chest: COMMONS NORMALS: normal inspection of the chest Resp: COMMON NORMALS: normal respiratory effort Extremity: COMMON NORMALS: full ROM NARRATIVE EXTREMITY EXAM: Tenderness noted along left calf with swelling compartments are soft distal pulses palpable Achilles tendon appears to be intact Neuro: COMMON NORMALS: patient oriented x3, moves all extremities and no focal motor deficits Psych: COMMON NORMALS: mental status grossly normal, Normal thought process present and cooperative THOUGHT PROCESS: Normal thought process present Skin: COMMON NORMALS: no rashes or lesions noted and no wounds GENERAL SKIN EXAM: no rashes or lesions noted Course Vital Signs: Vital signs: Vital Signs Temperature 97.7 F 06/14/23 15:43 Pulse Rate 71 06/14/23 15:43 Respiratory Rate 18 06/14/23 15:43 Blood Pressure 153/94 06/14/23 15:43 Pulse Oximetry 97 06/14/23 15:43 Oxygen Delivery Me thod Room Air 06/14/23 15:43 MDM - Extremity (Nontraumatic) Medical Decision Making Patient presents here with a likely left gastroc tear he does have pain and swelling in that left calf. His compartments are soft here he has no signs of compartment syndrome on exam Achilles tendon appears intact he is to be nonweightbearing did give him crutches we will Jesús wrap his leg he is to keep his leg elevated we will prescribe him pain meds I informed him if his swelling worsens or his pain worsens and gave him signs of compartment syndrome to return for. Will get him follow-up with orthopedics he understands agrees to plan Medical Records I reviewed the patient's medical records. No radiology studies performed this visit Discharge Plan Discharge Patient Disposition: Home Clinical Impression: Injury of lower leg, left Condition: Stable Prescriptions: New hydrocodone-acetaminophen 5-325 mg tablet 1 tab PO Q6H PRN (Reason: pain) Qty: 14 0RF No Action amlodipine 10 mg tablet 10 mg PO DAILY Qty: 90 1RF aspirin 81 mg capsule 81 mg PO DAILY Qty: 90 1RF carvedilol 25 mg tablet 25 mg PO BID Qty: 180 1RF Rx Instructions: must administer with a meal/food hydralazine 100 mg tablet 100 mg PO TID Qty: 270 1RF isosorbide dinitrate 20 mg tablet 20 mg PO BID Qty: 180 1RF metolazone 2.5 mg tablet 2.5 mg PO DAILY Qty: 90 1RF Klor-Con M20 20 mEq tablet,ER particles/crystals 20 meq PO DAILY Qty: 90 1RF Lasix 40 mg tablet 40 mg PO DAILY Qty: 180 1RF Discharge Orders: Discharge ED (Routine); Ordered 06/14/23 Ordered By: Sheron De La Rosa Referrals: Gonzales Bryant DO [Physician] - 1-3 days Nabeel Orellana, DO [Primary Care Provider] - Discharge Diet: Advance as tolerated Discharge Activity: Limit activity as instructed and Use walker/crutches as instructed Patient Instructions: Leg Pain (ED), Opioid Safety Activity Restrictions/Additional Instructions: Return if increased swelling or increased pain Stand Alone Forms: Work/School Release Coding Level of Care Code ED [employer] for [employer]
[2023-06-14] MEDS: HYDROcodone-acetaminophen 10-325 mg Tablet 1 TAB PO (16:37)
[2023-06-14 16:45] VITALS: BP 131/83; PULSE 67; O2SAT 97
--- NOTE | 2023-06-15 08:14 | DCPLANNER ---
Message was sent to Dr. Bryant on 06/15/23 at 0815. [facility] to contact patient.
== END 2023-06-14 16:47 | disposition home or self-care (01) ==
PROVIDERS: Emergency Provider Emergency Medicine; PCP Emergency Medicine Emergency Medical Services
DX: S89.92XA Unspecified injury of left lower leg, initial encounter (principal); Z79.82 Long term (current) use of aspirin; I10 Essential (primary) hypertension; F17.290 Nicotine dependence, other tobacco product, uncomplicated; X58.XXXA Exposure to other specified factors, initial encounter; Y93.67 Activity, basketball
CPT/HCPCS: 99283

== ENCOUNTER → 2023-06-23 08:41 | Outpatient (BNVA) | payer OTHER, SELFPAY | PROVIDERS: PCP Emergency Medicine Emergency Medical Services; Visit Provider Podiatrist Foot & Ankle Surgery | DX: S86.112A Strain of other muscle(s) and tendon(s) of posterior muscle group at lower leg level, left leg, initial encounter; X58.XXXA Exposure to other specified factors, initial encounter; Y93.67 Activity, basketball | CPT/HCPCS: 99203 ==

== ENCOUNTER 2023-06-23 11:14 | Outpatient (CLI) | payer OTHER, SELFPAY | END 2023-06-23 11:15 | disposition home or self-care (01) | LOC: SPT 11:15 | PROVIDERS: PCP Emergency Medicine Emergency Medical Services; Visit Provider Podiatrist Foot & Ankle Surgery | DX: Z46.89 Encounter for fitting and adjustment of other specified devices (principal); S86.119D Strain of other muscle(s) and tendon(s) of posterior muscle group at lower leg level, unspecified leg, subsequent encounter; X58.XXXD Exposure to other specified factors, subsequent encounter | CPT/HCPCS: 97760; L4361 ==

== ENCOUNTER 2023-11-04 12:31 | Outpatient (CLI) | payer OTHER, SELFPAY ==
[2023-11-04 13:15] LABS: Basophils # 0.1 10^3/uL (0.0-0.1); Basophils % 0.6 %; Eosinophils # 0.3 10^3/uL (0.0-0.8); Eosinophils % 2.8 %; Hematocrit 45.6 % (37-53); Lymphocytes # 2.5 10^3/uL (0.8-4.8); Lymphocytes % 25.8 %; Mean Corpuscular HGB Conc 35.7 g/dL (30-55); Mean Corpuscular Hemoglobin 32.6 pg (27-33); Mean Corpuscular Volume 91.2 fl (82-101); Mean Platelet Volume 9.2 fL (7.4-10.4); Monocytes % 10.3 %; Neutrophils # 5.86 10^3/uL (1.8-7.7); Neutrophils % 60.1 %; Nucleated Red Blood Cells % 0 %; Platelet Count 328 10^3/cmm (157-399); Red Cell Distribution Width 12.8 % (12.1-15.1); White Blood Count 9.75 10^3/uL (3.29-11.43)
[2023-11-04 13:40] LABS: Albumin Level 4.3 g/dL (3.5-5.2); Blood Urea Nitrogen 34 mg/dL (6-20); Calcium 10.6 mg/dL (8.5-10.5); Carbon Dioxide 31 mmol/L (22-29); Chloride 94 mmol/L (98-107); Glomerular Filtration Rate 28.2 mL/min (90-130); Glucose 92 mg/dL (65-115); Phosphorus 3.6 mg/dL (2.5-4.5); Sodium 138 mmol/L (136-145)
[2023-11-04 13:41] LABS: Creatinine Urine, Random 29 mg/dL (39-259); Microalbum Creatinine Ratio Ur 34 mg/dL (0-20); Microalbumin Random Urine 1 ug/dL (0-20)
[2023-11-04 13:48] LABS: Calcium 10.8 mg/dL (8.5-10.5)
[2023-11-04 13:51] LABS: Parathyroid Hormone 28.1 pg/mL (15-65)
[2023-11-04 14:08] LABS: Anion Gap 15.6 (5-19); Potassium 2.6 mmol/L (3.5-5.1)
== END 2023-11-04 12:32 | disposition home or self-care (01) ==
PROVIDERS: PCP Emergency Medicine Emergency Medical Services; Visit Provider Internal Medicine
DX: N18.32 Chronic kidney disease, stage 3b (principal)
CPT/HCPCS: 80069; 82044; 82310; 83970; 85025

== ENCOUNTER 2023-11-09 09:14 | Outpatient (CLI) | payer OTHER, SELFPAY ==
[2023-11-09 09:59] LABS: Basophils % 0.4 %; Eosinophils # 0.2 10^3/uL (0.0-0.8); Eosinophils % 2.2 %; Hematocrit 42.1 % (37-53); Lymphocytes # 1.8 10^3/uL (0.8-4.8); Lymphocytes % 22.9 %; Mean Corpuscular HGB Conc 35.2 g/dL (30-55); Mean Corpuscular Volume 91.1 fl (82-101); Mean Platelet Volume 9.4 fL (7.4-10.4); Monocytes # 0.7 10^3/uL (0.2-0.9); Monocytes % 8.4 %; Neutrophils # 5.16 10^3/uL (1.8-7.7); Neutrophils % 65.6 %; Nucleated Red Blood Cells % 0 %; Platelet Count 286 10^3/cmm (157-399); Red Blood Count 4.62 10^6/uL (3.85-5.65); Red Cell Distribution Width 12.9 % (12.1-15.1); White Blood Count 7.86 10^3/uL (3.29-11.43)
[2023-11-09 10:16] LABS: Albumin Level 3.9 g/dL (3.5-5.2); Anion Gap 11.5 (5-19); Blood Urea Nitrogen 27 mg/dL (6-20); Calcium 8.9 mg/dL (8.5-10.5); Carbon Dioxide 31 mmol/L (22-29); Chloride 96 mmol/L (98-107); Glomerular Filtration Rate 41.2 mL/min (90-130); Glucose 146 mg/dL (65-115); Phosphorus 1.5 mg/dL (2.5-4.5); Sodium 136 mmol/L (136-145)
[2023-11-09 10:17] LABS: Calcium 9.1 mg/dL (8.5-10.5)
[2023-11-09 10:19] LABS: Creatinine Urine, Random 37 mg/dL (39-259); Microalbum Creatinine Ratio Ur 27 mg/dL (0-20); Microalbumin Random Urine 1 ug/dL (0-20)
[2023-11-09 10:50] LABS: Potassium 2.5 mmol/L (3.5-5.1)
== END 2023-11-09 09:15 | disposition home or self-care (01) ==
LOC: LAB 09:16
PROVIDERS: PCP Emergency Medicine Emergency Medical Services; Visit Provider Internal Medicine
DX: N18.32 Chronic kidney disease, stage 3b (principal)
CPT/HCPCS: 80069; 82044; 82310; 83970; 85025

== ENCOUNTER 2023-11-09 17:23 | Emergency (ER) | payer OTHER, SELFPAY ==
[2023-11-09] VITALS (9 sets, daily range): BP systolic 106–129; BP diastolic 67–77; PULSE 70–96; RESP 13–24; TEMP 36.4; O2SAT 91–97
--- NOTE | 2023-11-09 18:11 | ECG_ITS ---
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 Measurements Intervals [place] Rate: 71 P: 43 IL: 202 QRS: -38 QRSD: 113 T: 47 QT: 400 QTc: 437 Interpretive Statements SINUS RHYTHM LEFT AXIS DEVIATION [QRS AXIS < -30] MODERATE INTRAVENTRICULAR CONDUCTION DELAY [110+ ms QRS DURATION] NONSPECIFIC ST & T-WAVE ABNORMALITY Compared to ECG 06/06/2022 18:25:19 Left-axis deviation now present Intraventricular conduction delay now present T-wave abnormality now present Left ventricular hypertrophy no longer present ST (T wave) deviation no longer present Electronically Signed On 11-10-2023 21:53:57 CDT by Dayana Caruso M.D. [email or web address]
--- NOTE | 2023-11-09 18:23 | ED_ITS ---
HPI - Recheck/Abnormal Lab/Rx 2 General: Chief Complaint: Recheck/Abnormal Lab/Rx Stated Complaint: low potassium Time Seen by Provider: 11/09/23 18:09 History of Present Illness: 43-year-old man with a history of hypert ension and stage III kidney disease who presents to the emergency room secondary to a report of hypokalemia. He says he has had some mild symptoms. He has had some chest palpitations and discomfort. Some muscle cramps. He has felt fatigued. He has been taking potassium supplements. He had increased it and then they repeated labs and uses potassium was actually down [facility] ED 2 PFS: Medical History Intravenous drug abuse Essential hypertension Family History Other CAD (coronary artery disease) Social History Smoking and tobacco/nicotine status: current every day tobacco/nicotine user e- cigarettes E-Cigarette Details: e-cigarette and vaporizer device Alcohol intake: current Alcohol intake frequency: few times a month Substance/Drug Use: current Physical Exam 2 Narrative: EXAM NARRATIVE: General: Alert, no acute distress. Skin: Warm, dry. Head: Normocephalic, atraumatic. Neck: Supple, trachea midline. Eye: Extraocular movements are intact. Ears, nose, mouth and throat: mucosa moist. Cardiovascular: Regular, Normal peripheral perfusion. Respiratory: Lungs are clear to auscultation, respirations are non-labored, breath sounds are equal, Symmetrical chest wall expansion. Gastrointestinal: Soft, Nontender, Non distended Musculoskeletal: Normal ROM, no deformity. Neurological: Alert and oriented, No focal neurological deficit observed. Psychiatric: Cooperative, appropriate mood & affect. Course 2 Vital Signs: Vital signs: Vital Signs Temperature 97.5 F L 11/09/23 17:32 Pulse Rate 70 11/09/23 17:32 Respiratory Rate 16 11/09/23 17:32 Blood Pressure 118/72 11/09/23 17:32 Pulse Oximetry 94 11/09/23 17:32 Oxygen Delivery Me thod Room Air 11/09/23 17:32 MDM - Recheck/Abnormal Lab/Rx Medical Decision Making Lab Review: Laboratory results were reviewed and interpreted by myself the emergency room physician. Potassium is 2.5 today. EKG: Time 1728. Rate 71. Normal sinus rhythm, nonspecific ST wave abnormality., no ectopy, normal AL & QRS intervals, This was reviewed and interpreted by myself the ER physician at 1735 Assessment and plan: Hypokalemia ?40 mill equivalents p.o., 40 mill equivalents IV KCl. 2 g magnesium. - Discharged home - Discussed findings and plan with patient. Answered any questions. - All laboratory values were reviewed and interpreted personally by myself, the ER physician - Evaluation and treatment of this problem were appropriate in the emergency setting Lab Data 11/09/23 18:29 11/09/23 18:29 Laboratory Results WBC 9.65 10^3/uL (3.29-11.43) 11/09/23 18: RBC 4.54 10^6/uL (3.85-5.65) 11/09/23 18: Hgb 14.40 g/dL (11.27-16.99) 11/09/23 18: Hct 41.1 % (37-53) 11/09/23 18: MCV 90.5 fl (82-101) 11/09/23 18: MCH 31.7 pg (27-33) 11/09/23 18: MCHC 35.0 g/dL (30-55) 11/09/23 18: RDW 12.8 % (12.1-15.1) 11/09/23 18: Plt Count 275 10^3/cmm (157-399) 11/09/23 18: MPV 9.2 fL (7.4-10.4) 11/09/23 18: Neut % (Auto) 60.8 % 11/09/23 18: Lymph % (Auto) 26.6 % 11/09/23 18: [place] % (Auto) 9.9 % 11/09/23 18: Eos % (Auto) 2.0 % 11/09/23 18: Baso % (Auto) 0.4 % 11/09/23 18: Neut # (Auto) 5.86 10^3/uL (1.8-7.7) 11/09/23 18: Lymph # (Auto) 2.6 10^3/uL (0.8-4.8) 11/09/23 18:29 [place] # (Auto) 1.0 10^3/uL (0.2-0.9) H 11/09/23 18:29 Eos # (Auto) 0.2 10^3/uL (0.0-0.8) 11/09/23 18:29 Baso # (Auto) 0.0 10^3/uL (0.0-0.1) 11/09/23 18: Nucleated RBC % (auto) 0 % 11/09/23 18: Nucleated RBCs # 0.0 /100WBC 11/09/23 18: Sodium 138 mmol/L (136-145) 11/09/23 18: Potassium 2.5 mmol/L (3.5-5.1) L* 11/09/23 18: Chloride 97 mmol/L (98-107) L 11/09/23 18: Carbon Dioxide 30 mmol/L (22-29) H 11/09/23 18: Anion Gap 13.5 (5-19) 11/09/23 18: BUN 27 mg/dL (6-20) H 11/09/23 18: Creatinine 2.1 mg/dL (0.7-1.2) H 11/09/23 18: GFR Calculation 34.5 mL/min (90-130) L 11/09/23 18: Glucose 94 mg/dL (65-115) 11/09/23 18: Calculated Osmolality 291 mOsm/kg (285-295) 11/09/23 18: Calcium 8.9 mg/dL (8.5-10.5) 11/09/23 18: Magnesium 2.2 mg/dL (1.7-2.3) 11/09/23 18: Total Bilirubin 0.3 mg/dL (0.15-1.2) 11/09/23 18: AST 70 U/L (0-40) H 11/09/23 18:29 ALT 81 U/L (0-41) H 11/09/23 18:29 Alkaline Phosphatase 52 U/L (40-130) 11/09/23 18: Total Protein 7.5 g/dL (6.6-8.7) 11/09/23 18:29 Albumin 4.0 g/dL (3.5-5.2) 11/09/23 18:29 Globulin 3.5 g/dL (1.3-4.6) 11/09/23 18:29 No radiology studies performed this visit Discharge Plan Discharge Patient Disposition: Home Clinical Impression: Hypokalemia Condition: Stable Prescriptions: New potassium chloride 20 mEq tablet,ER particles/crystals 40 meq PO BID 7 Days Qty: 14 0RF magnesium oxide 400 mg magnesium tablet 400 mg PO BID Qty: 14 0RF No Action (DME) DANILO tavera See Rx Instructions .Route .MEDSUPPLY Qty: 1 0RF Rx Instructions: As directed amlodipine 10 mg tablet 10 mg PO DAILY Qty: 90 1RF aspirin 81 mg capsule 81 mg PO DAILY Qty: 90 1RF carvedilol 25 mg tablet 25 mg PO BID Qty: 180 1RF Rx Instructions: must administer with a meal/food hydralazine 100 mg tablet 100 mg PO TID Qty: 270 1RF isosorbide dinitrate 20 mg tablet 20 mg PO BID Qty: 180 1RF metolazone 2.5 mg tablet 2.5 mg PO DAILY Qty: 90 1RF Klor-Con M20 20 mEq tablet,ER particles/crystals 20 meq PO DAILY Qty: 90 1RF furosemide 40 mg tablet See Rx Instructions .ROUTE .COMPLEX Qty: 30 0RF Dose Instruction: Take 1 tablet by mouth once daily Rx Instructions: Take 1 tablet by mouth once daily hydrocodone-acetaminophen 5-325 mg tablet 1 tab PO Q6H PRN (Reason: pain) Qty: 14 0RF Discharge Orders: Discharge ED (Routine); Ordered 11/09/23 Ordered By: Telma Spivey Referrals: Nabeel Orellana DO [Primary Care Provider] - Discharge Diet: Usual diet Discharge Activity: Resume usual activity Patient Instructions: Hypokalemia (ED) Activity Restrictions/Additional Instructions: Thank you for choosing [facility] for your healthcare needs today. Please realize this is an emergency room and that we are providing you with a medical screening exam and this may not be complete and all inclusive of all the testing and or work up that you may need to determine your ailment or severity of your illness. You have been screened and evaluated and felt safe for discharge. Health conditions do change or evolve sometimes and as such it is important that you follow up with your Primary Doctor to be re checked, 3-5 days is a general good time frame for follow up. You are always welcome to return to the ED for re assessment if your symptoms are worsening or you have new concerns Coding Level of Care Code ED Food Clerk for Joe Blum
[2023-11-09 18:43] LABS: Basophils % 0.4 %; Eosinophils # 0.2 10^3/uL (0.0-0.8); Hematocrit 41.1 % (37-53); Lymphocytes # 2.6 10^3/uL (0.8-4.8); Lymphocytes % 26.6 %; Mean Corpuscular Hemoglobin 31.7 pg (27-33); Mean Corpuscular Volume 90.5 fl (82-101); Mean Platelet Volume 9.2 fL (7.4-10.4); Monocytes % 9.9 %; Neutrophils # 5.86 10^3/uL (1.8-7.7); Neutrophils % 60.8 %; Nucleated Red Blood Cells % 0 %; Platelet Count 275 10^3/cmm (157-399); Red Blood Count 4.54 10^6/uL (3.85-5.65); Red Cell Distribution Width 12.8 % (12.1-15.1); White Blood Count 9.65 10^3/uL (3.29-11.43)
[2023-11-09 19:04] LABS: Alanine Aminotransferase 81 U/L (0-41); Alkaline Phosphatase 52 U/L (40-130); Anion Gap 13.5 (5-19); Aspartate Amino Transferase 70 U/L (0-40); Blood Urea Nitrogen 27 mg/dL (6-20); Calcium 8.9 mg/dL (8.5-10.5); Carbon Dioxide 30 mmol/L (22-29); Chloride 97 mmol/L (98-107); Creatinine Clr Calc Pharmacy 62.6692; Globulin 3.5 g/dL (1.3-4.6); Glomerular Filtration Rate 34.5 mL/min (90-130); Glucose 94 mg/dL (65-115); Magnesium 2.2 mg/dL (1.7-2.3); Osmolality Calculated 291 mOsm/kg (285-295); Sodium 138 mmol/L (136-145); Total Bilirubin 0.3 mg/dL (0.15-1.2); Total Protein 7.5 g/dL (6.6-8.7)
[2023-11-09 19:07] LABS: Potassium 2.5 mmol/L (3.5-5.1)
[2023-11-09 19:51] LABS: Troponin(5th) Baseline 25 ng/L (0-15)
--- NOTE | 2023-11-09 19:55 | PC.NURSE ---
[employer] CONSULTED ON IV Y-SITE COMPATABILITY OF KCL AND MAGNESIUM SULFATE PRIOR TO ADMINISTRATION.
[2023-11-09] MEDS: potassium chloride ER 20 mEq Tablet 40 MEQ PO (19:58)
[2023-11-09] MEDS: potassium chloride premix 100 ML 25 MEQ IV (19:59)
[2023-11-09] MEDS: magnesium sulfate premix 2 GM/50 ML PIGGYBACK IV (20:04)
--- NOTE | 2023-11-09 20:50 | PC.NURSE ---
PILLOW AND BLANKETS PROVIDED TO PER REQUEST. PT AND FAMILY DENY FURTHER NEEDS.
--- NOTE | 2023-11-09 21:40 | PC.NURSE ---
PT REPORTS POTASSIUM IS STARTING TO BURN. DR TIDWELL MADE AWARE AND NEW VERBAL ORDERS RECEIVED AND REPEATED. ORDERS PLACED IN SYSTEM.
[2023-11-09] MEDS: sodium chloride 0.9% 1,000 ML 100 ML IV (21:50)
== END 2023-11-10 00:02 | disposition home or self-care (01) ==
PROVIDERS: Emergency Medicine; Emergency Provider Emergency Medicine; PCP Emergency Medicine Emergency Medical Services
DX: E87.6 Hypokalemia (principal); Z79.82 Long term (current) use of aspirin; I10 Essential (primary) hypertension; F17.290 Nicotine dependence, other tobacco product, uncomplicated
CPT/HCPCS: 36415; 80053; 83735; 84484; 85025; 93005; 96365; 96366; 96367; 99284; J3475; J3480; J7030

== ENCOUNTER 2023-11-19 10:59 | Outpatient (CLI) | payer OTHER, SELFPAY ==
[2023-11-19 11:49] LABS: Albumin Level 4.1 g/dL (3.5-5.2); Anion Gap 14.5 (5-19); Blood Urea Nitrogen 23 mg/dL (6-20); Calcium 9.5 mg/dL (8.5-10.5); Carbon Dioxide 27 mmol/L (22-29); Chloride 98 mmol/L (98-107); Glomerular Filtration Rate 41.2 mL/min (90-130); Glucose 81 mg/dL (65-115); Phosphorus 3.5 mg/dL (2.5-4.5); Potassium 3.5 mmol/L (3.5-5.1); Sodium 136 mmol/L (136-145)
== END 2023-11-19 11:00 | disposition home or self-care (01) ==
LOC: LAB 11:08
PROVIDERS: PCP Emergency Medicine Emergency Medical Services; Visit Provider Internal Medicine
DX: Z01.89 Encounter for other specified special examinations (principal)
CPT/HCPCS: 36415; 80069; 83735

== ENCOUNTER 2023-12-25 08:22 | Emergency (ER) | payer OTHER, SELFPAY ==
--- NOTE | 2023-12-25 08:36 | ECG_ITS ---
[facility] Test Date: 2023-12-25 Pat Name: Doug Frank Department: Room: Gender: Male Director Of Archives: : 1980 Requested By: Sheron De La Rosa Order Number: [id number] Mar MD: Krzysztof Ramsay M.D. Measurements Intervals [place] Rate: 52 P: 56 MT: 208 QRS: -24 QRSD: 117 T: 30 QT: 457 QTc: 426 Interpretive Statements SINUS BRADYCARDIA BORDERLINE LEFT AXIS DEVIATION [QRS AXIS < -20] MODERATE INTRAVENTRICULAR CONDUCTION DELAY [110+ ms QRS DURATION] MODERATE ST DEPRESSION [0.05+ mV ST DEPRESSION] Compared to ECG 11/09/2023 17:26:43 ST (T wave) deviation now present Sinus rhythm no longer present T-wave abnormality no longer present Electronically Signed On 12-25-2023 13:31:48 CDT by Krzysztof Ramsay M.D. [id number]
--- NOTE | 2023-12-25 08:36 | ED_ITS ---
HPI - General Adult 2 General: Chief complaint: Recheck/Abnormal Lab/Rx Stated complaint: [facility], [facility] Time Seen by Provider: 12/25/23 08:33 Source: patient Mode of arrival: ambulatory Limitations: no limitations History of Present Illness: 43-year-old male who states that he has history of chronic kidney disease he has been having some increased weakness he had blood drawn 2 days ago and was called today to come to the ER because he is hypokalemic states his potassium was 2.4. He denies any pain anywhere he denies any vomiting or diarrhea denies any fevers. Associated symptoms: Reports malaise; Deny chest pain, dyspnea, headache(s), nausea, rash or vomiting Related Data Previous Rx's Medication Instructions Recorded amlodipine 10 mg tablet 10 mg PO DAILY #90 tabs 07/02/22 aspirin 81 mg capsule 81 mg PO DAILY #90 caps 07/02/22 carvedilol 25 mg tablet 25 mg PO BID #180 tabs 07/02/22 hydralazine 100 mg tablet 100 mg PO TID #270 tabs 07/02/22 isosorbide dinitrate 20 mg tablet 20 mg PO BID #180 tabs 07/02/22 metolazone 2.5 mg tablet 2.5 mg PO DAILY #90 tabs 07/02/22 potassium chloride 20 mEq 20 meq PO DAILY #90 tabs 07/02/22 tablet,extended release(part/cryst) (Klor-Con M) hydrocodone 5 mg-acetaminophen 325 1 tab PO Q6H PRN pain #14 tabs 06/14/23 mg tablet CAM walker #1 ea 06/23/23 furosemide 40 mg tablet See Rx Instructions .Route 09/07/23 .COMPLEX #30 tabs magnesium oxide 400 mg PO BID #14 tabs 11/09/23 Allergies Allergy/AdvReac Type Severity Reaction Status Date / Time No Known Allergies Allergy Verified 12/25/23 08:41 Review of Systems 2 Const: Reports: malaise; Denies: fever(s), chills, body aches or change in appetite ENMT: Denies: throat pain or dental pain Card: Denies: chest pain Resp: Denies: dyspnea GI: Denies: abdominal pain, nausea, vomiting or diarrhea Musc: Denies: neck pain or back pain Skin/Breast: Denies: rash Neuro: Denies: headache(s) Psych: Denies: depression PFSH ED 2 PFSH: Medical History Intravenous drug abuse Essential hypertension Family History Other CAD (coronary artery disease) Social History Smoking and tobacco/nicotine status: current every day tobacco/nicotine user e- cigarettes E-Cigarette Details: e-cigarette and vaporizer device Alcohol intake: current Alcohol intake frequency: few times a month Substance/Drug Use: current Physical Exam 2 Const: COMMON NORMALS: no acute distress, patient oriented x3 and healthy appearing HENMT: COMMON NORMALS: normocephalic and atraumatic HEAD & SCALP: n ormocephalic and atraumatic Eye: COMMON NORMALS: conjunctivae normal CONJUNCTIVA: Yes conjunctivae normal Neck/C-Spine: COMMON NORMALS: full ROM and supple Chest: COMMONS NORMALS: normal inspection of the chest and normal palpation of entire chest wall Resp: COMMON NORMALS: normal respiratory effort, No retractions, No use of accessory muscles and clear to auscultation bilaterally AUSCULTATION: clear to auscultation bilaterally Cardio: COMMON NORMALS: regular rate, regular rhythm and No murmurs present (Cardio) RATE: regular rate RHYTHM: regular rhythm Extremity: COMMON NORMALS: normal to inspection and full ROM Neuro: COMMON NORMALS: patient oriented x3, moves all extremities and no focal motor deficits Psych: COMMON NORMALS: mental status grossly normal, Normal thought process present and cooperative THOUGHT PROCESS: Normal thought process present Skin: COMMON NORMALS: no rashes or lesions noted and no wounds GENERAL SKIN EXAM: no rashes or lesions noted Course 2 Vital Signs: Vital signs: Vital Signs Temperature 97.9 F 12/25/23 08:37 Pulse Rate 52 L 12/25/23 09:23 Blood Pressure 120/78 12/25/23 09:23 Pulse Oximetry 94 12/25/23 09:23 Oxygen Delivery Me thod Room Air 12/25/23 09:[address] [facility] - General Adult Medical Decision Making Patient presents here with hypokalemia potassium is improved from 2 days ago at 2 7 male he has increased his potassium dose at home I told him to continue did give him a dose here he is to follow-up with PCP next week to have a recheck informed him return if worsening he understands agrees to plan. Lab Data I reviewed the patient's lab results. 12/25/23 09:00 12/25/23 09:00 Laboratory Results WBC 6.22 10^3/uL (3.29-11.43) 12/25/23 09:00 RBC 4.79 10^6/uL (3.85-5.65) 12/25/23 09:00 Hgb 15.00 g/dL (11.27-16.99) 12/25/23 09:00 Hct 42.9 % (37-53) 12/25/23 09:00 MCV 89.6 fl (82-101) 12/25/23 09:00 MCH 31.3 pg (27-33) 12/25/23 09:00 MCHC 35.0 g/dL (30-55) 12/25/23 09:00 RDW 12.1 % (12.1-15.1) 12/25/23 09:00 Plt Count 286 10^3/cmm (157-399) 12/25/23 09:00 MPV 9.1 fL (7.4-10.4) 12/25/23 09:00 Neut % (Auto) 57.5 % 12/25/23 09:00 Lymph % (Auto) 28.3 % 12/25/23 09:00 [place] % (Auto) 11.1 % 12/25/23 09:00 Eos % (Auto) 2.3 % 12/25/23 09:00 Baso % (Auto) 0.5 % 12/25/23 09:00 Neut # (Auto) 3.58 10^3/uL (1.8-7.7) 12/25/23 09:00 Lymph # (Auto) 1.8 10^3/uL (0.8-4.8) 12/25/23 09:00 [place] # (Auto) 0.7 10^3/uL (0.2-0.9) 12/25/23 09:00 Eos # (Auto) 0.1 10^3/uL (0.0-0.8) 12/25/23 09:00 Baso # (Auto) 0.0 10^3/uL (0.0-0.1) 12/25/23 09:00 Nucleated RBC % (auto) 0 % 12/25/23 09:00 Nucleated RBCs # 0.0 /100WBC 12/25/23 09:00 Sodium 138 mmol/L (136-145) 12/25/23 09:00 Potassium 2.7 mmol/L (3.5-5.1) L* 12/25/23 09:00 Chloride 94 mmol/L (98-107) L 12/25/23 09:00 Carbon Dioxide 30 mmol/L (22-29) H 12/25/23 09:00 Anion Gap 16.7 (5-19) 12/25/23 09:00 BUN 37 mg/dL (6-20) H 12/25/23 09:00 Creatinine 2.5 mg/dL (0.7-1.2) H 12/25/23 09:00 GFR Calculation 28.2 mL/min (90-130) L 12/25/23 09:00 Glucose 111 mg/dL (65-115) 12/25/23 09:00 Calculated Osmolality 295 mOsm/kg (285-295) 12/25/23 09:00 Calcium 9.4 mg/dL (8.5-10.5) 12/25/23 09:00 Magnesium 2.2 mg/dL (1.7-2.3) 12/25/23 09:00 Total Bilirubin 0.8 mg/dL (0.15-1.2) 12/25/23 09:00 AST 88 U/L (0-40) H 12/25/23 09:00 ALT 92 U/L (0-41) H 12/25/23 09:00 Alkaline Phosphatase 60 U/L (40-130) 12/25/23 09:00 Total Protein 8.0 g/dL (6.6-8.7) 12/25/23 09:00 Albumin 4.2 g/dL (3.5-5.2) 12/25/23 09:00 Globulin 3.8 g/dL (1.3-4.6) 12/25/23 09:00 No radiology studies performed this visit Discharge Plan Discharge Patient Disposition: Home Clinical Impression: Hypokalemia Condition: Stable Prescriptions: No Action (DME) CAM walker See Rx Instructions .Route .MEDSUPPLY Qty: 1 0RF Rx Instructions: As directed amlodipine 10 mg tablet 10 mg PO DAILY Qty: 90 1RF aspirin 81 mg capsule 81 mg PO DAILY Qty: 90 1RF carvedilol 25 mg tablet 25 mg PO BID Qty: 180 1RF Rx Instructions: must administer with a meal/food hydralazine 100 mg tablet 100 mg PO TID Qty: 270 1RF isosorbide dinitrate 20 mg tablet 20 mg PO BID Qty: 180 1RF metolazone 2.5 mg tablet 2.5 mg PO DAILY Qty: 90 1RF Klor-Con M20 20 mEq tablet,ER particles/crystals 20 meq PO DAILY Qty: 90 1RF furosemide 40 mg tablet See Rx Instructions .ROUTE .COMPLEX Qty: 30 0RF Dose Instruction: Take 1 tablet by mouth once daily Rx Instructions: Take 1 tablet by mouth once daily hydrocodone-acetaminophen 5-325 mg tablet 1 tab PO Q6H PRN (Reason: pain) Qty: 14 0RF magnesium oxide 400 mg magnesium tablet 400 mg PO BID Qty: 14 0RF Discharge Orders: Discharge ED (Routine); Ordered 12/25/23 Ordered By: Sheron De La Rosa Discharge Diet: Advance as tolerated Discharge Activity: Resume usual activity Patient Instructions: Hypokalemia (ED) Coding Level of Care Code ED Emergency Medical Service Coordinator for Joe Blum
[2023-12-25 08:37] VITALS: BP 119/67; PULSE 53; TEMP 36.6; O2SAT 96; BMI 41.5
[2023-12-25 09:11] LABS: Basophils % 0.5 %; Eosinophils # 0.1 10^3/uL (0.0-0.8); Eosinophils % 2.3 %; Hematocrit 42.9 % (37-53); Lymphocytes # 1.8 10^3/uL (0.8-4.8); Lymphocytes % 28.3 %; Mean Corpuscular Hemoglobin 31.3 pg (27-33); Mean Corpuscular Volume 89.6 fl (82-101); Mean Platelet Volume 9.1 fL (7.4-10.4); Monocytes # 0.7 10^3/uL (0.2-0.9); Monocytes % 11.1 %; Neutrophils # 3.58 10^3/uL (1.8-7.7); Neutrophils % 57.5 %; Nucleated Red Blood Cells % 0 %; Platelet Count 286 10^3/cmm (157-399); Red Blood Count 4.79 10^6/uL (3.85-5.65); Red Cell Distribution Width 12.1 % (12.1-15.1); White Blood Count 6.22 10^3/uL (3.29-11.43)
[2023-12-25] MEDS: potassium chloride ER 20 mEq Tablet 60 MEQ PO (09:20)
[2023-12-25 09:22] LABS: Alanine Aminotransferase 92 U/L (0-41); Albumin Level 4.2 g/dL (3.5-5.2); Alkaline Phosphatase 60 U/L (40-130); Anion Gap 16.7 (5-19); Aspartate Amino Transferase 88 U/L (0-40); Blood Urea Nitrogen 37 mg/dL (6-20); Calcium 9.4 mg/dL (8.5-10.5); Carbon Dioxide 30 mmol/L (22-29); Chloride 94 mmol/L (98-107); Creatinine Clr Calc Pharmacy 51.4223; Globulin 3.8 g/dL (1.3-4.6); Glomerular Filtration Rate 28.2 mL/min (90-130); Glucose 111 mg/dL (65-115); Magnesium 2.2 mg/dL (1.7-2.3); Osmolality Calculated 295 mOsm/kg (285-295); Sodium 138 mmol/L (136-145); Total Bilirubin 0.8 mg/dL (0.15-1.2)
[2023-12-25 09:23] VITALS: BP 120/78; PULSE 52; O2SAT 94
[2023-12-25 09:28] LABS: Potassium 2.7 mmol/L (3.5-5.1)
[2023-12-25 09:51] VITALS: BP 131/75; PULSE 54; O2SAT 94
== END 2023-12-25 09:51 | disposition home or self-care (01) ==
PROVIDERS: Emergency Provider Emergency Medicine
DX: E87.6 Hypokalemia (principal); Z79.82 Long term (current) use of aspirin; I10 Essential (primary) hypertension; F17.290 Nicotine dependence, other tobacco product, uncomplicated
CPT/HCPCS: 80053; 83735; 85025; 93005; 99284

== ENCOUNTER 2024-02-08 09:49 | Emergency (ER) | payer OTHER, SELFPAY ==
[2024-02-08 10:14] VITALS: BP 120/74; PULSE 60; TEMP 36.4; O2SAT 95; BMI 40.7
--- NOTE | 2024-02-08 10:31 | XR_ITS ---
WS: [id number] Exam: XR foot LT min 3V* [id number] Date/Time of Exam: 02/08/2024 10:34 AM Reason For Exam: fall/trauma Comminuted spiral fracture of the mid and distal fifth metatarsal noted. No significant displacement. No other acute fractures of the foot are noted. Degenerative change at the first MP joint. No soft t issue foreign bodies. XR/XR foot LT min 3V* [id number] IMPRESSION: 1. Comminuted fracture of the fifth metatarsal appearing to be in adequate alig nment for healing. Associated soft tissue swelling.
--- NOTE | 2024-02-08 10:34 | ED_ITS ---
HPI - Extremity Injury (Lower) General: Chief Complaint: Extremity Injury, Lower Stated Complaint: lt foot inj Time Seen by Provider: 02/08/24 10:01 Source: patient Mode of arrival: wheelchair Limitations: no limitations History of Present Illness: Patient is a 43-year-old male who presents to ED today for evaluation of a left foot injury that he sustained earlier this morning. Patient states he passed out and injured his foot when he passed out. He states his passing out episodes have been present for over a year. He has been told it most likely is secondary to his blood pressure and orthostatic hypotension as it usually seems to happen after he stands and starts to walk. Patient states [facility] and has upcoming appointments with them. He states he does not want any evaluation for this today and is only here for evaluation of the left foot. Patient denies any other injuries during the fall. He states he is not able to walk on the foot secondary to pain. MD complaint: foot injury and fall Onset (ago): hour(s) Injury: Left: foot Place: home Severity: severe Relieving factors: immobilization Exacerbating factors: weight bearing, movement and palpation Context: fall Associated symptoms: Reports inability to bear weight Related Data Previous Rx's Medication Instructions Recorded aspirin 81 mg capsule 81 mg PO DAILY #90 caps 07/02/22 hydralazine 100 mg tablet 100 mg PO TID #270 tabs 07/02/22 isosorbide dinitrate 20 mg tablet 20 mg PO BID #180 tabs 07/02/22 metolazone 2.5 mg tablet 2.5 mg PO DAILY #90 tabs 07/02/22 potassium chloride 20 mEq 20 meq PO DAILY #90 tabs 07/02/22 tablet,extended release(part/cryst) (Klor-Con M) hydrocodone 5 mg-acetaminophen 325 1 tab PO Q6H PRN pain #14 tabs 06/14/23 mg tablet CAM walker #1 ea 06/23/23 furosemide 40 mg tablet See Rx Instructions .Route 09/07/23 .COMPLEX #30 tabs magnesium oxide 400 mg PO BID #14 tabs 11/09/23 hydrocodone 5 mg-acetaminophen 325 1 tab PO Q6H PRN pain #14 tabs 02/08/24 mg tablet Allergies Allergy/AdvReac Type Severity Reaction Status Date / Time No Known Allergies Allergy Verified 02/08/24 10:19 Review of Systems Const: Denies: fever(s) Card: Reports: syncope and pre-syncope; Denies: chest pain, palpitations or irregular heart rhythm Musc: Reports: extremity pain (L foot) and extremity swelling (L foot); Denies: neck pain or back pain Neuro: Denies: headache(s), numbness in extremities, weakness in extremities o r sensory changes PFSH ED PFSH: Medical History Intravenous drug abuse Essential hypertension Family History Other CAD (coronary artery disease) Social History Smoking and tobacco/nicotine status: current every day tobacco/nicotine user e- cigarettes E-Cigarette Details: e-cigarette and vaporizer device Alcohol intake: current Alcohol intake frequency: few times a month Substance/Drug Use: current Physical Exam Const: COMMON NORMALS: no acute distress, patient oriented x3, no limitations, alert and well nourished GENERAL APPEARANCE: cooperative ORIENTATION/CONSCIOUSNESS: Yes awake, Yes oriented to person, Yes oriented to place and Yes oriented to time HENMT: COMMON NORMALS: normocephalic and atraumatic HEAD & SCALP: normal to inspection, normocephalic and atraumatic Neck/C-Spine: GENERAL: Yes normal visual inspection CERVICAL SPINE: No Cervical spine tenderness Resp: COMMON NORMALS: normal respiratory effort Cardio: COMMON NORMALS: regular rate and regular rhythm RATE: regular rate RHYTHM: regular rhythm Extremity: COMMON NORMALS: capillary refill normal and no calf tenderness GENERAL: Yes normal exam except as noted LEFT LOWER EXTREMITY: Yes foot & digits (TTP dorsal lateral L foot; edema/ecchymosis present) Left foot and digits: Yes neurovascular exam (normal) Neuro: COMMON NORMALS: patient oriented x3, moves all extremities, no focal motor deficits and no sensory deficits noted SENSORIUM/ORIENTATION: Yes alert, Yes oriented to person, Yes oriented to place and Yes oriented to time Course Vital Signs: Vital signs: Vital Signs Temperature 97.6 F 02/08/24 10:14 Pulse Rate 60 02/08/24 10:14 Blood Pressure 120/74 02/08/24 10:14 Pulse Oximetry 95 02/08/24 10:14 Oxygen Delivery Me thod Room Air 02/08/24 10:14 MDM - Extremity Injury (Lower) Medical Decision Making XR showing comminuted 5th metatarsal fx. He will be placed in a splint/crutches for non-weight bearing and CM will get him follow up with podiatry. As mentioned in HPI, patient does not want any form of evaluation for the syncopal episodes. States he was only here to address the foot. Lab Data Radiology Impressions Foot X-Ray 02/08/24 10:31 IMPRESSION: 1. Comminuted fracture of the fifth metatarsal appearing to be in adequate alignment for healing. Associated soft tissue swelling. All radiology interpretation(s) finalized by discharge Discharge Plan Discharge Patient Disposition: Home Clinical Impression: Closed nondisplaced fracture of fifth left metatarsal bone Condition: Stable Prescriptions: New hydrocodone-acetaminophen 5-325 mg tablet 1 tab PO Q6H PRN (Reason: pain) Qty: 14 0RF No Action (DME) CAM walker See Rx Instructions .Route .MEDSUPPLY Qty: 1 0RF Rx Instructions: As directed aspirin 81 mg capsule 81 mg PO DAILY Qty: 90 1RF hydralazine 100 mg tablet 100 mg PO TID Qty: 270 1RF isosorbide dinitrate 20 mg tablet 20 mg PO BID Qty: 180 1RF metolazone 2.5 mg tablet 2.5 mg PO DAILY Qty: 90 1RF Klor-Con M20 20 mEq tablet,ER particles/crystals 20 meq PO DAILY Qty: 90 1RF furosemide 40 mg tablet See Rx Instructions .ROUTE .COMPLEX Qty: 30 0RF Dose Instruction: Take 1 tablet by mouth once daily Rx Instructions: Take 1 tablet by mouth once daily hydrocodone-acetaminophen 5-325 mg tablet 1 tab PO Q6H PRN (Reason: pain) Qty: 14 0RF magnesium oxide 400 mg magnesium tablet 400 mg PO BID Qty: 14 0RF Discharge Orders: Discharge ED (Routine); Ordered 02/08/24 Ordered By: Sadie Celaya Referrals: Tawanna Nguyen MD [Primary Care Provider] - Patient Instructions: Fractures - Metatarsal, Opioid Safety, Pain Management Activity Restrictions/Additional Instructions: As we discussed, you need to ice and elevate the extremity. Use your crutches for no weight bearing until told otherwise by orthopedics/podiatry. Case management should reach out to you or your emergency contact's phone number to help set you up with this appointment. Coding Level of Care Code ED Vacuum Drum Drier Operator for Joe Blum
--- NOTE | 2024-02-08 10:49 | PC.PHAR ---
[facility] is [facility], sent fax at 10:50am for med list will follow up
--- NOTE | 2024-02-08 11:30 | PC.NURSE ---
pt refused new set of crutches as he already has 2 pairs at home.
[2024-02-08 11:31] VITALS: BP 136/91; PULSE 58; O2SAT 97
--- NOTE | 2024-02-08 17:44 | DCPLANNER ---
messaged podiatry for er f/u
== END 2024-02-08 11:33 | disposition home or self-care (01) ==
PROVIDERS: Emergency Provider Physician Assistant; PCP Family Medicine
DX: S92.355A Nondisplaced fracture of fifth metatarsal bone, left foot, initial encounter for closed fracture (principal); R55 Syncope and collapse
CPT/HCPCS: 29515; 73630; 99283

== ENCOUNTER → 2024-02-12 16:10 | Outpatient (BNVA) | payer OTHER, SELFPAY | PROVIDERS: PCP Family Medicine; Visit Provider Podiatrist Foot & Ankle Surgery | DX: S92.355A Nondisplaced fracture of fifth metatarsal bone, left foot, initial encounter for closed fracture (principal); W19.XXXA Unspecified fall, initial encounter | CPT/HCPCS: 99214 ==

== ENCOUNTER 2024-02-24 11:32 | Observation (INO) | payer OTHER, SELFPAY ==
[2024-02-24] VITALS (48 sets, daily range): BP systolic 76–160; BP diastolic 57–126; PULSE 57–84; RESP 13–28; TEMP 36.5; O2SAT 93–98; BMI 41.1
--- NOTE | 2024-02-24 11:53 | CT_ITS ---
WS: [id number] CT HEAD NONCONTRAST HISTORY: head injury TECHNIQUE: Contiguous axial imaging performed through the brain. Bone and soft tissue windows. Sagitt al and coronal reformats reviewed. All CT scans at [facility] use at least one of these dose optimization techniques: automated exposure control; mA and/or kV adjustment per patient size (includ es targeted exams where dose is matched to clinical indication); or iterative reconstruction. DLP: 1129.48 mGy.cm COMPARISON: 06/11/2022, 10/02/2018 No acute intracranial hemorrhage or edema. There is mild mass effect upon the LEFT frontal lobe alexsandra x. Suspected there is a high density mass causing the cortical displacement. Mass measures 2.5 x 4.6 x 3.7 cm. Suspect this may be an extra-axial mass. No significant edema. No atrophy or prior infarcts or herniation. Ventricles: Normal size with no hydrocephalus. No inferior displacement of the cerebellar tonsils. Paranasal sinuses: As visualized are clear. Mastoid air cells: Well pneumatized. Calvarium and scalp: Skull is intact with no soft tissue edema or swelling. No erosions. CT/CT head wo con* [id number] IMPRESSION: 1. High density mass in the LEFT frontal region measures 2.5 x 4.6 x 3.7 cm wi th mass effect upon the frontal cortex. No midline shift. Mass is probably extr a-axial may be a meningioma. Recommend MRI brain with and without contrast. 2. No acute intracranial hemorrhage or edema.
--- NOTE | 2024-02-24 11:54 | ECG_ITS ---
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 Measurements Intervals [place] Rate: 60 P: 48 AK: 199 QRS: -47 QRSD: 106 T: 64 QT: 444 QTc: 446 Interpretive Statements SINUS RHYTHM LEFT AXIS DEVIATION [QRS AXIS < -30] PATTERN CONSISTENT WITH PULMONARY DISEASE ST DEPRESSION, CONSIDER SUBENDOCARDIAL INJURY [0.1+ mV ST DEPRESSION] Compared to ECG 12/25/2023 08:51:50 Sinus bradycardia no longer present Intraventricular conduction delay no longer present ST (T wave) deviation still present Electronically Signed On 02-24-2024 16:43:49 CDT by Dayana Caruso M.D. [email or web address]
[2024-02-24 12:32] LABS: Basophils # 0.1 10^3/uL (0.0-0.1); Basophils % 0.8 %; Eosinophils # 0.4 10^3/uL (0.0-0.8); Eosinophils % 4.1 %; Hematocrit 46.7 % (37-53); Lymphocytes # 2.5 10^3/uL (0.8-4.8); Lymphocytes % 27.3 %; Mean Corpuscular HGB Conc 35.8 g/dL (30-55); Mean Corpuscular Hemoglobin 32.4 pg (27-33); Mean Corpuscular Volume 90.5 fl (82-101); Mean Platelet Volume 9.3 fL (7.4-10.4); Monocytes # 0.7 10^3/uL (0.2-0.9); Monocytes % 7.3 %; Neutrophils # 5.39 10^3/uL (1.8-7.7); Neutrophils % 59.9 %; Nucleated Red Blood Cells % 0 %; Platelet Count 294 10^3/cmm (157-399); Red Blood Count 5.16 10^6/uL (3.85-5.65); Red Cell Distribution Width 13.3 % (12.1-15.1)
[2024-02-24 12:51] LABS: Alanine Aminotransferase 130 U/L (0-41); Albumin Level 4.3 g/dL (3.5-5.2); Alkaline Phosphatase 66 U/L (40-130); Anion Gap 14.5 (5-19); Aspartate Amino Transferase 116 U/L (0-40); Blood Urea Nitrogen 31 mg/dL (6-20); Calcium 9.3 mg/dL (8.5-10.5); Carbon Dioxide 35 mmol/L (22-29); Chloride 91 mmol/L (98-107); Creatinine Clr Calc Pharmacy 46.8512; Globulin 3.7 g/dL (1.3-4.6); Glomerular Filtration Rate 25.7 mL/min (90-130); Glucose 119 mg/dL (65-115); Osmolality Calculated 294 mOsm/kg (285-295); Sodium 138 mmol/L (136-145); Total Bilirubin 0.8 mg/dL (0.15-1.2)
[2024-02-24 12:54] LABS: Potassium 2.5 mmol/L (3.5-5.1)
--- NOTE | 2024-02-24 13:32 | PC.PHAR ---
pt is [facility] for current med list 02/24/24 at 1:30pm. Last med rec completed 02/08/24
--- NOTE | 2024-02-24 13:57 | W.ED.HEATRA ---
HPI - Head Injury General: Chief complaint: Head Injury Stated complaint: felled, passed out multi times hit head Time Seen by Provider: 02/24/24 13:03 History of Present Illness: 44-year-old male presents to the emergency room complains of several episodes of orthostatic hypotension to where he has passed out he fell and hit his head recently. He has a history of cardiomyopathy as well as liver and renal disease. No other injuries. He is awake alert and oriented. Patient reports a very brief loss of consciousness after the fall. Associated symptoms: Deny neck pain Related Data Home Medications Medication Instructions Recorded Confirmed carvedilol 25 mg tablet 25 mg PO BID 02/08/24 02/24/24 diclofenac sodium 1 % topical gel 4 g topical QID PRN joint pain 02/08/24 02/24/24 (Voltaren Arthritis Pain) sertraline 100 mg tablet 150 mg PO DAILY 02/08/24 02/24/24 trazodone 100 mg tablet 200 mg PO BEDTIME 02/08/24 02/24/24 aripiprazole 10 mg tablet 10 mg PO BEDTIME 02/24/24 02/24/24 aspirin 81 mg tablet,delayed 81 mg PO DAILY 02/24/24 02/24/24 release cholecalciferol (vitamin D3) 25 25 mcg PO DAILY 02/24/24 02/24/24 mcg (1,000 unit) tablet (Vitamin D3) furosemide 40 mg tablet 40 mg PO BID 02/24/24 02/24/24 lidocaine 5 % topical patch 1 patch topical DAILY PRN Pain 02/24/24 02/24/24 metolazone 2.5 mg tablet 2.5 mg PO DAILY PRN Edema 02/24/24 02/24/24 potassium chloride 20 mEq See Rx Instructions .Route .COMPLEX 02/24/24 02/24/24 tablet,extended release(part/cryst) (Klor-Con M) Previous Rx's Medication Instructions Recorded hydralazine 100 mg tablet 100 mg PO TID #270 tabs 07/02/22 isosorbide dinitrate 20 mg tablet 20 mg PO BID #180 tabs 07/02/22 CAM walker #1 ea 06/23/23 magnesium oxide 400 mg PO BID #14 tabs 11/09/23 hydrocodone 5 mg-acetaminophen 325 1 tab PO Q6H PRN pain #14 tabs 02/08/24 mg tablet Allergies Allergy/AdvReac Type Severity Reaction Status Date / Time No Known Allergies Allergy Verified 02/08/24 10:19 Review of Systems Const: Denies: fever(s) or chills Card: Denies: chest pain Resp: Reports: dyspnea GI: Denies: abdominal pain : Denies: dysuria, urinary frequency or urinary urgency Musc: Denies: neck pain or back pain Skin/Breast: Denies: rash PFSH ED PFSH: Medical History Intravenous drug abuse Essential hypertension Family History Other CAD (coronary artery disease) Social History Smoking and tobacco/nicotine status: unknown if used tobacco/nicotine Alcohol intake: current Alcohol intake frequency: few times a month Substance/Drug Use: current Physical Exam Const: GENERAL APPEARANCE: cooperative ORIENTATION/CONSCIOUSNESS: Yes awake, Yes oriented to person, Yes oriented to place and Yes oriented to time HENMT: COMMON NORMALS: normocephalic, atraumatic and hearing grossly normal bilaterally HEAD & SCALP: normocephalic and atraumatic Resp: COMMON NORMALS: normal respiratory effort, No retractions, No use of accessory muscles and clear to auscultation bilaterally AUSCULTATION: clear to auscultation bilaterally Cardio: COMMON NORMALS: regular rate, regular rhythm and No murmurs present (Cardio) RATE: regular rate RHYTHM: regular rhythm GI: COMMON NORMALS: Soft to palpation and No hepatosplenomegaly present AUSCULTATION: Yes normoactive bowel sounds PALPATION: Yes Soft to palpation, No Tenderness to palpation present (GI), No Guarding due to palpation present (GI) and Yes No hepatosplenomegaly present Extremity: COMMON NORMALS: normal to inspection, capillary refill normal, no clubbing, cyanosis or edema, no calf tenderness and no pedal edema Neuro: SENSORIUM/ORIENTATION: Yes oriented to person, Yes oriented to place and Yes oriented to time Skin: COMMON NORMALS: no rashes or lesions noted GENERAL SKIN EXAM: no rashes or lesions noted Course Vital Signs: Vital signs: Vital Signs Temperature 97.7 F 02/24/24 11:43 Pulse Rate 57 L 02/24/24 16:55 Respiratory Rate 16 02/24/24 16:55 Blood Pressure 160/80 02/24/24 16:55 Pulse Oximetry 95 02/24/24 16:55 Oxygen Delivery Me thod Room Air 02/24/24 15:01 MDM - Head Injury Medcial Decision Making CT shows what looks like to be a meningioma. Discussed who presented to may have been present on previous scan. She does not feel it is emergent there is no blood and there is no acute edema. This can be followed up with an outpatient MRI. She he is hypokalemic and slightly orthostatic. Will likely require adjustments of medications as well as potassium supplementation. Discussed with hospitalist will admit orders. Medical Records I reviewed the patient's medical records. Lab Data I reviewed the patient's lab results. 02/24/24 12:14 02/24/24 12:[address] 02/24/24 11:53 IMPRESSION: 1. High density mass in the LEFT frontal region measures 2.5 x 4.6 x 3.7 cm with mass effect upon the frontal cortex. No midline shift. Mass is probably extra-axial may be a meningioma. Recommend MRI brain with and without contrast. 2. No acute intracranial hemorrhage or edema. Hip/Pelvis X-Ray 02/24/24 14:18 Impression: Mild osteoarthritis of the right hip with an acetabular lip. Tonnis classification: grade 1: sclerosis of femoral head and acetabulum or slight joint space narrowing or slight lipping at joint margins Laboratory Results WBC 9.00 10^3/uL (3.29-11.43) 02/24/24 12:14 RBC 5.16 10^6/uL (3.85-5.65) 02/24/24 12:14 Hgb 16.70 g/dL (11.27-16.99) 02/24/24 12:14 Hct 46.7 % (37-53) 02/24/24 12:14 MCV 90.5 fl (82-101) 02/24/24 12:14 MCH 32.4 pg (27-33) 02/24/24 12:14 MCHC 35.8 g/dL (30-55) 02/24/24 12:14 RDW 13.3 % (12.1-15.1) 02/24/24 12:14 Plt Count 294 10^3/cmm (157-399) 02/24/24 12:14 MPV 9.3 fL (7.4-10.4) 02/24/24 12:14 Neut % (Auto) 59.9 % 02/24/24 12:14 Lymph % (Auto) 27.3 % 02/24/24 12:14 Sierra % (Auto) 7.3 % 02/24/24 12:14 Eos % (Auto) 4.1 % 02/24/24 12:14 Baso % (Auto) 0.8 % 02/24/24 12:14 Neut # (Auto) 5.39 10^3/uL (1.8-7.7) 02/24/24 12:14 Lymph # (Auto) 2.5 10^3/uL (0.8-4.8) 02/24/24 12:14 Sierra # (Auto) 0.7 10^3/uL (0.2-0.9) 02/24/24 12:14 Eos # (Auto) 0.4 10^3/uL (0.0-0.8) 02/24/24 12:14 Baso # (Auto) 0.1 10^3/uL (0.0-0.1) 02/24/24 12:14 Nucleated RBC % (auto) 0 % 02/24/24 12:14 Nucleated RBCs # 0.0 /100WBC 02/24/24 12:14 Sodium 138 mmol/L (136-145) 02/24/24 12:14 Potassium 2.5 mmol/L (3.5-5.1) L* 02/24/24 12:14 Chloride 91 mmol/L (98-107) L 02/24/24 12:14 Carbon Dioxide 35 mmol/L (22-29) H 02/24/24 12:14 Anion Gap 14.5 (5-19) 02/24/24 12:14 BUN 31 mg/dL (6-20) H 02/24/24 12:14 Creatinine 2.7 mg/dL (0.7-1.2) H 02/24/24 12:14 GFR Calculation 25.7 mL/min (90-130) L 02/24/24 12:14 Glucose 119 mg/dL (65-115) H 02/24/24 12:14 Calculated Osmolality 294 mOsm/kg (285-295) 02/24/24 12:14 Calcium 9.3 mg/dL (8.5-10.5) 02/24/24 12:14 Magnesium 2.3 mg/dL (1.7-2.3) 02/24/24 12:14 Total Bilirubin 0.8 mg/dL (0.15-1.2) 02/24/24 12:14 AST 116 U/L (0-40) H 02/24/24 12:14 ALT 130 U/L (0-41) H 02/24/24 12:14 Alkaline Phosphatase 66 U/L (40-130) 02/24/24 12:14 Total Protein 8.0 g/dL (6.6-8.7) 02/24/24 12:14 Albumin 4.3 g/dL (3.5-5.2) 02/24/24 12:14 Globulin 3.7 g/dL (1.3-4.6) 02/24/24 12:14 All radiology interpretation(s) finalized by discharge Discharge Plan Discharge Patient Disposition: Placed in Observation Admit Provider: Crys Stevenson Clinical Impression: CKD (chronic kidney disease), Essential hypertension, Hypokalemia, Orthostatic hypotension Condition: Stable Coding Level of Care Code ED Veterinary Laboratory Diagnostician for Joe Blum
--- NOTE | 2024-02-24 14:18 | XR_ITS ---
WS: [id number] Right hip, 2 views, AP pelvis, 02/24/2024 Clinical Data: hip pain Comparison: None. Findings: No fractures or dislocations are seen. The right hip shows no erosion, sclerosis, narrowing or fragme ntation of the right femoral head. There is a prominent acetabular lip. The left hip is unremarkable. The soft tissues are not remarkable. The adjacent pelvis is normal. XR/XR hip RT 2-3V wo/w pel* [id number] Impression: Mild osteoarthritis of the right hip with an acetabular lip. Tonnis classification: grade 1: sclerosis of femoral head and acetabulum or sli ght joint space narrowing or slight lipping at joint margins
[2024-02-24 14:29] LABS: Magnesium 2.3 mg/dL (1.7-2.3)
[2024-02-24] MEDS: potassium chloride oral liq 20 mEq/15 mL UDC 40 MEQ PO ×2 (14:51→20:25)
--- NOTE | 2024-02-24 16:56 | P.HP_ITS ---
Providers/Chief Complaint 2 Primary Care Provider: Tawanna Nguyen MD Chief Complaint: felled, passed out multi times hit head History of Present Illness Doug Frank is a 44 year old male with history of nonischemic cardiomyopathy, reduced ejection fraction CHF, IV drug abuse, noncompliance, hypertension, polypharmacy presented with chief complaint of syncopal events. Patient is orthostatic positive. Patient is stating that he passed out today when he stood up from sitting position, he did not experience any chest pain recent fever no nausea vomiting diarrhea. No active chest pain. He recently had ankle fracture after syncopal event. He has seen his PCP who has reduced some of his medications and optimize antibiotics regimen. I have requested drug screen, D-dimer and orthostatics which are positive Review of Systems 2 Const: Denies: fever(s) Eyes: Denies: change in vision ENMT: Denies: throat pain Card: Denies: chest pain Medications/Allergies Home Medications Medication Instructions Recorded Confirmed Last Taken Type hydralazine 100 mg tablet 100 mg PO TID #270 tabs 07/02/22 02/24/24 02/24/24 Rx isosorbide dinitrate 20 mg tablet 20 mg PO BID #180 tabs 07/02/22 02/24/24 02/24/24 Rx CAM walker #1 ea 06/23/23 02/24/24 Unknown Rx magnesium oxide 400 mg PO BID #14 tabs 11/09/23 02/24/24 02/24/24 Rx carvedilol 25 mg tablet 25 mg PO BID 02/08/24 02/24/24 02/24/24 History diclofenac sodium 1 % topical gel 4 g topical QID PRN joint pain 02/08/24 02/24/24 Unknown History (Voltaren Arthritis Pain) hydrocodone 5 mg-acetaminophen 325 1 tab PO Q6H PRN pain #14 tabs 02/08/24 02/24/24 Unknown Rx mg tablet sertraline 100 mg tablet 150 mg PO DAILY 02/08/24 02/24/24 02/24/24 History trazodone 100 mg tablet 200 mg PO BEDTIME 02/08/24 02/24/24 02/23/24 History aripiprazole 10 mg tablet 10 mg PO BEDTIME 02/24/24 02/24/24 Unknown History aspirin 81 mg tablet,delayed 81 mg PO DAILY 02/24/24 02/24/24 02/24/24 History release cholecalciferol (vitamin D3) 25 25 mcg PO DAILY 02/24/24 02/24/24 02/24/24 History mcg (1,000 unit) tablet (Vitamin D3) furosemide 40 mg tablet 40 mg PO BID 02/24/24 02/24/24 02/24/24 History lidocaine 5 % topical patch 1 patch topical DAILY PRN Pain 02/24/24 02/24/24 Unknown History metolazone 2.5 mg tablet 2.5 mg PO DAILY PRN Edema 02/24/24 02/24/24 Unknown History potassium chloride 20 mEq See Rx Instructions .Route .COMPLEX 02/24/24 02/24/24 02/24/24 History tablet,extended release(part/cryst) (Klor-Con M) Allergies Allergy/AdvReac Type Severity Reaction Status Date / Time No Known Allergies Allergy Verified 02/08/24 10:19 PFSH Acute 2 PFSH: Medical History Intravenous drug abuse Essential hypertension Family History Other CAD (coronary artery disease) Social History Smoking and tobacco/nicotine status: unknown if used tobacco/nicotine Alcohol intake: current Alcohol intake frequency: few times a month Substance/Drug Use: current Vitals/I&O/Wt Last Vital Signs Temp 97.7 F 02/24/24 11:43 Pulse 60 02/24/24 15:45 Resp 13 02/24/24 15:45 BP 136/97 02/24/24 15:30 Pulse Ox 97 02/24/24 15:45 O2 Del Method Room Air 02/24/24 15:01 Weight last 48 hrs Weight 130.181 kg Physical Exam 2 Narrative: Mild sign of fluid overload Hypertensive Awake and alert GCS 15 Orthostatic positive Currently on room air Using his phone S1, S2 Data 02/24/24 12:14 02/24/24 12:14 A&P Assessment and plan (1) Orthostatic hypotension: (2) Hypokalemia: (3) CKD (chronic kidney disease): (4) Syncope: Plan Polypharmacy Syncope Positive orthostasis Gentle fluid hydration at 11 PM Optimize antihypertensive regimen Reduced ejection fraction nonischemic cardiomyopathy with improvement in EF Follows up with Dr. Ramsay outpatient Hypokalemia to be replenished Acute on chronic kidney disease: Patient has signs of fluid overload I would hold off on diuretics for now Full code Cardiac diet Attestations 2 Medical Necessity Statement*: Anticipating discharge within 48 hours Diagnoses Orthostatic hypotension I95.1 Hypokalemia E87.6 CKD (chronic kidney disease) N18.9 Syncope R55
--- NOTE | 2024-02-24 16:57 | USCV_ITS ---
Doug Frank Age: 44 Gender: M : 1980 Exam Date: 02/24/2024 18:57 Ordering Phys: Crys Stevenson MD Technologist: YEISON [place] [facility] [place]: syncope, history of hypertrophic cardiomyopathy, history of liver disease, history of renal disease. BP: 160 / 80 HR: 56 Rhythm: Sinus Technical Quality: Adequate MEASUREMENTS (Male / Female) Normal Values 2D ECHO LV Diastolic Diameter PLAX 4.0 cm 4.2 - 5.9 / 3.9 - 5.3 cm IVS Diastolic Thickness 2.0 cm 0.6 - 1.0 / 0.6 - 0.9 cm IVS Systolic Thickness 2.1 cm LVPW Diastolic Thickness 2.0 cm 0.6 - 1.0 / 0.6 - 0.9 cm LVPW Systolic Thickness 2.8 cm LVOT Diameter 1.8 cm LV Ejection Fraction 2D Teich 65.9 % LV Ejection Fraction MOD 4C 51.4 % LV Ejection Fraction MOD 2C 60.2 % LV Ejection Fraction 2C AL 61.4 % LA Diameter 3.4 cm Aorta at Sinotubular Diameter 3.0 cm IVC Diameter 1.2 cm M-MODE LA Ao Ratio MM 1.5 AV Cusp Separation MM 2.0 cm DOPPLER AV Peak Velocity 108.0 cm/s LVOT Peak Velocity 108.0 cm/s AV Area Cont Eq vti 2.7 cm squared AV Area Cont Eq pk 2.5 cm squared MV Peak Velocity 102.0 cm/s MV Area PHT 3.6 cm squared Mitral E to A Ratio 1.0 TV Peak E Velocity 51.0 cm/s PV Peak Velocity 98.0 cm/s FINDINGS Left Ventricle Left ventricle is normal in size. LV systolic function is normal with EF of 60 to 65%. No regional wall motion abnormalities are seen. Moderate to severe left ventricular hypertrophy Right Ventricle Normal in size and function Right Atrium Normal in size Left Atrium Normal in size Mitral Valve Structurally normal mitral valve. Trace mitral regurgitation. Aortic Valve Structurally normal aortic valve. No significant stenosis or regurgitation. Tricuspid Valve Mild tricuspid regurgitation. Pulmonic Valve Mild pulmonic regurgitation. Pericardium Normal Aorta Normal in size IVC Appears to be normal CONCLUSIONS LV systolic function is normal with EF of 60-65% Moderate to severe left ventricular hypertrophy Trace mitral regurgitation Mild tricuspid regurgitation Mild pulmonic regurgitation. Krzysztof Ramsay MD (Electronically Signed) Final Date: 25 February 2024 12:38 S
[2024-02-24 18:03] LABS: D Dimer 0.37 ug/mLFEU (0-0.59)
[2024-02-24 18:11] LABS: Amphetamines Screen Urine Negative (Negative); Barbiturates Screen Urine Negative (Negative); Benzodiazepines Screen Urine Negative (Negative); Cocaine Screen Urine Negative (Negative); Opiate Screen Urine Negative (Negative); PCP Screen Urine Negative (Negative); THC Screen Urine Negative (Negative)
[2024-02-24] MEDS: HYDROcodone-acetaminophen 5-325 mg Tablet 1 TAB PO (18:25)
[2024-02-24] MEDS: isosorbide dinitrate 20 mg Tablet PO (18:25)
[2024-02-24] MEDS: sodium chloride 0.9% 1,000 ML 75 ML IV (18:26)
[2024-02-24] MEDS: heparin 5,000 unit/mL INJ 1 mL 5000 UNIT SUBCUT (18:26)
[2024-02-24 18:36] LABS: Thyroid Stimulating Hormone 6.41 uIU/mL (0.27-4.20); Vitamin B12 871 pg/mL (232-1245)
--- NOTE | 2024-02-24 19:31 | PC.NURSE ---
Physician orders: Potassium oral liquid 40meq one time NOW.
[2024-02-24] MEDS: morphine IR 15 mg Tablet PO (20:31)
[2024-02-25] MEDS: heparin 5,000 unit/mL INJ 1 mL 5000 UNIT SUBCUT (04:55)
[2024-02-25] MEDS: HYDROcodone-acetaminophen 5-325 mg Tablet 1 TAB PO (04:56)
[2024-02-25 06:00] VITALS: PULSE 66
[2024-02-25 06:10] LABS: Anion Gap 13.6 (5-19); Blood Urea Nitrogen 36 mg/dL (6-20); Carbon Dioxide 34 mmol/L (22-29); Chloride 94 mmol/L (98-107); Creatinine Clr Calc Pharmacy 48.6532; Glomerular Filtration Rate 26.8 mL/min (90-130); Glucose 101 mg/dL (65-115); Magnesium 2.3 mg/dL (1.7-2.3); Osmolality Calculated 296 mOsm/kg (285-295); Sodium 139 mmol/L (136-145)
[2024-02-25 06:21] LABS: Potassium 2.6 mmol/L (3.5-5.1)
[2024-02-25 07:57] VITALS: BP 130/75; PULSE 69; RESP 19; TEMP 36.6; O2SAT 94
[2024-02-25] MEDS: magnesium oxide 400 mg tablet PO (08:03)
[2024-02-25] MEDS: isosorbide dinitrate 20 mg Tablet PO (08:03)
[2024-02-25] MEDS: aspirin 81 mg EC Tablet PO (08:03)
[2024-02-25] MEDS: potassium chloride ER 20 mEq Tablet 40 MEQ PO (08:03)
[2024-02-25] MEDS: carvedilol 25 mg Tablet PO (08:03)
[2024-02-25 08:04] VITALS: BP 109/72; BP 121/74; BP 94/62; PULSE 63; PULSE 65; PULSE 82
[2024-02-25 08:09] VITALS: RESP 18
[2024-02-25] MEDS: morphine IR 15 mg Tablet PO (08:09)
[2024-02-25] MEDS: potassium chloride oral liq 20 mEq/15 mL UDC 40 MEQ PO (08:11)
--- NOTE | 2024-02-25 08:56 | PM.DCS ---
Discharge Providers Date of Admission: 02/24/24 17:02 Date of Discharge: February 25, 2024 Attending Provider at Admission: Crys Stevenson MD Attending Provider at Discharge: Crys Stevenson MD Primary Care Provider: Tawanna Nguyen MD Diagnoses at Discharge Discharge Diagnosis (1) Orthostatic hypotension: Status: Acute (2) Hypokalemia: Status: Acute (3) CKD (chronic kidney disease): Status: Acute (4) Syncope: Status: Acute Reason for Visit Reason for Visit: felled, passed out multi times hit head Hospital Course Hospital Course 44-year male with nonischemic cardiomyopathy, presented with syncopal event. Patient was orthostatic positive. He is suffering from polypharmacy. He was given IV fluids for about 10 hours in the hospital. His Lasix was stopped. Patient refused IV potassium supplementation. He is agreeable for oral supplementation at this point. Patient has been taking 80 mEq of potassium at home which I have counseled him to continue for next 3 days without diuretics. No echo was done during this hospitalization as it was done recently which showed improved ejection fraction. For his hypertension his home regimen of antibiotics regimen was resumed. I have told patient that we need to watch his urine output and make sure when he is not fluid overloaded state his output is greater than his input. He drinks a lot of Cristopher-Aid. I have counseled patient to not use Lasix for at least next 2 days and then start using on every other day Physical Exam Narrative: Awake and alert GCS 15 Nonfocal neuroexam pleasant and cooperative Discharge Data Studies Completed and Pending Completed Studies During Hospitalization Category Date Time Status CT head wo con* [id number] Stat Cat Scan 02/24/24 11:53 Completed XR hip RT 2-3V wo/w pel* [id number] Stat Exams 02/24/24 14:18 Completed Pending at discharge Category Date Time Status CV. echo complete* [id number] Routine Ultrasound 02/24/24 16:57 Taken Radiology Impressions Head CT 02/24/24 11:53 IMPRESSION: 1. High density mass in the LEFT frontal region measures 2.5 x 4.6 x 3.7 cm with mass effect upon the frontal cortex. No midline shift. Mass is probably extra-axial may be a meningioma. Recommend MRI brain with and without contrast. 2. No acute intracranial hemorrhage or edema. Hip/Pelvis X-Ray 02/24/24 14:18 Impression: Mild osteoarthritis of the right hip with an acetabular lip. Tonnis classification: grade 1: sclerosis of femoral head and acetabulum or slight joint space narrowing or slight lipping at joint margins Laboratory Results WBC 9.00 10^3/uL (3.29-11.43) 02/24/24 12:14 RBC 5.16 10^6/uL (3.85-5.65) 02/24/24 12:14 Hgb 16.70 g/dL (11.27-16.99) 02/24/24 12:14 Hct 46.7 % (37-53) 02/24/24 12:14 MCV 90.5 fl (82-101) 02/24/24 12:14 MCH 32.4 pg (27-33) 02/24/24 12:14 MCHC 35.8 g/dL (30-55) 02/24/24 12:14 RDW 13.3 % (12.1-15.1) 02/24/24 12:14 Plt Count 294 10^3/cmm (157-399) 02/24/24 12:14 MPV 9.3 fL (7.4-10.4) 02/24/24 12:14 Neut % (Auto) 59.9 % 02/24/24 12:14 Lymph % (Auto) 27.3 % 02/24/24 12:14 [place] % (Auto) 7.3 % 02/24/24 12:14 Eos % (Auto) 4.1 % 02/24/24 12:14 Baso % (Auto) 0.8 % 02/24/24 12:14 Neut # (Auto) 5.39 10^3/uL (1.8-7.7) 02/24/24 12:14 Lymph # (Auto) 2.5 10^3/uL (0.8-4.8) 02/24/24 12:14 [place] # (Auto) 0.7 10^3/uL (0.2-0.9) 02/24/24 12:14 Eos # (Auto) 0.4 10^3/uL (0.0-0.8) 02/24/24 12:14 Baso # (Auto) 0.1 10^3/uL (0.0-0.1) 02/24/24 12:14 Nucleated RBC % (auto) 0 % 02/24/24 12:14 Nucleated RBCs # 0.0 /100WBC 02/24/24 12:14 D-Dimer 0.37 ug/mLFEU (0-0.59) 02/24/24 12:14 Sodium 139 mmol/L (136-145) 02/25/24 05:10 Potassium 2.6 mmol/L (3.5-5.1) L* 02/25/24 05:10 Chloride 94 mmol/L (98-107) L 02/25/24 05:10 Carbon Dioxide 34 mmol/L (22-29) H 02/25/24 05:10 Anion Gap 13.6 (5-19) 02/25/24 05:10 BUN 36 mg/dL (6-20) H 02/25/24 05:10 Creatinine 2.6 mg/dL (0.7-1.2) H 02/25/24 05:10 GFR Calculation 26.8 mL/min (90-130) L 02/25/24 05:10 Glucose 101 mg/dL (65-115) 02/25/24 05:10 Calculated Osmolality 296 mOsm/kg (285-295) H 02/25/24 05:10 Calcium 9.0 mg/dL (8.5-10.5) 02/25/24 05:10 Magnesium 2.3 mg/dL (1.7-2.3) 02/25/24 05:10 Total Bilirubin 0.8 mg/dL (0.15-1.2) 02/24/24 12:14 AST 116 U/L (0-40) H 02/24/24 12:14 ALT 130 U/L (0-41) H 02/24/24 12:14 Alkaline Phosphatase 66 U/L (40-130) 02/24/24 12:14 C-Reactive Protein 3.0 mg/L (0.0-4.9) 02/25/24 05:10 Total Protein 8.0 g/dL (6.6-8.7) 02/24/24 12:14 Albumin 4.3 g/dL (3.5-5.2) 02/24/24 12:14 Globulin 3.7 g/dL (1.3-4.6) 02/24/24 12:14 Vitamin B12 871 pg/mL (232-1245) 02/24/24 12:14 TSH 6.41 uIU/mL (0.27-4.20) H 02/24/24 12:14 Urine Opiates Screen Negative ng/mL (Negative) 02/24/24 17:24 Ur Barbiturates Screen Negative ng/mL (Negative) 02/24/24 17:24 Ur Phencyclidine Scrn Negative ng/mL (Negative) 02/24/24 17:24 Ur Amphetamines Screen Negative ng/mL (Negative) 02/24/24 17:24 U Benzodiazepines Scrn Negative ng/mL (Negative) 02/24/24 17:24 Urine Cocaine Screen Negative ng/mL (Negative) 02/24/24 17:24 U Marijuana (THC) Screen Negative ng/mL (Negative) 02/24/24 17:24 Vitals Last Vital Signs Temp 97.9 F 02/25/24 07:57 Pulse 63 02/25/24 08:04 Resp 18 02/25/24 08:09 BP 121/74 02/25/24 08:04 Pulse Ox 94 02/25/24 07:57 O2 Del Method Room Air 02/25/24 07:57 Discharge Plan Discharge Patient Disposition: Home Condition: Stable Prescriptions: Continued (DME) CAM walker See Rx Instructions .Route .MEDSUPPLY Qty: 1 0RF Rx Instructions: As directed hydralazine 100 mg tablet 100 mg PO TID Qty: 270 1RF isosorbide dinitrate 20 mg tablet 20 mg PO BID Qty: 180 1RF magnesium oxide 400 mg magnesium tablet 400 mg PO BID Qty: 14 0RF hydrocodone-acetaminophen 5-325 mg tablet 1 tab PO Q6H PRN (Reason: pain) Qty: 14 0RF sertraline 100 mg Tablet 150 mg PO DAILY trazodone 100 mg Tablet 200 mg PO BEDTIME diclofenac sodium [Voltaren Arthritis Pain] 1 % Gel 4 g TOPICAL QID PRN (Reason: joint pain) Rx Instructions: apply to single knee, ankle, foot; for foot includes sole/toes/top of foot carvedilol 25 mg Tablet 25 mg PO BID Rx Instructions: must administer with a meal/food aripiprazole 10 mg Tablet 10 mg PO BEDTIME aspirin [Aspir-81] 81 mg Tablet,Delayed Release (Dr/Ec) 81 mg PO DAILY lidocaine 5 % Adhesive Patch,Medicated 1 patch TOPICAL DAILY PRN (Reason: Pain) Rx Instructions: leave on most painful area for up to 12 hrs cholecalciferol (vitamin D3) [Vitamin D3] 25 mcg (1,000 unit) Tablet 25 mcg PO DAILY potassium chloride [Klor-Con M20] 20 mEq tablet,ER particles/crystals See Rx Instructions .ROUTE .COMPLEX Rx Instructions: Take 1 tablet by mouth twice daily and take 1 tablet as needed for potassium supplementation. Held furosemide 40 mg tablet 40 mg PO BID Hold Instructions: Resume on 02/28/24. Discontinued metolazone 2.5 mg tablet 2.5 mg PO DAILY PRN (Reason: Edema) Discharge Orders: Discharge Order (Routine); Ordered 02/25/24 Ordered By: Crys Stevenson Referrals: Tawanna Nguyen MD [Primary Care Provider] - 02/29/24 2:00 pm (Patient will see Mimi You) Patient Instructions: Opioid Safety Discharge Attestations Time Spent in Discharge Care*: less than 30 min Quality Metrics Clinical Quality Measures [ No reported AMI, CVA or VTE this stay] Coding Level of Care Code Acute Code for Chg Fwd Diagnoses Orthostatic hypotension I95.1 Hypokalemia E87.6 CKD (chronic kidney disease) N18.9 Syncope R55
[2024-02-25 09:15] VITALS: BP 130/75; PULSE 69; RESP 18; TEMP 36.6
--- NOTE | 2024-02-25 09:39 | PC.NURSE ---
Patient discharged to home. Instruction provided regarding follow up appointment and to hold his lasix until 02/27. Patient verbalized complete understanding. No new medications. Patient taken by wheelchair to main entrance per his request. Spouse to meet him there.
== END 2024-02-25 09:41 | disposition home or self-care (01) ==
LOC: ER 15:58 → CSU 17:05
PROVIDERS: Emergency Medicine; Admitting Provider Internal Medicine; Emergency Provider Family Medicine; PCP Family Medicine; Visit Provider Internal Medicine
DX: I95.1 Orthostatic hypotension (principal); E87.6 Hypokalemia; R55 Syncope and collapse; I42.8 Other cardiomyopathies; Z79.899 Other long term (current) drug therapy; Z91.81 History of falling; I13.0 Hypertensive heart and chronic kidney disease with heart failure and stage 1 through stage 4 chronic kidney disease, or unspecified chronic kidney disease; I50.20 Unspecified systolic (congestive) heart failure; N18.9 Chronic kidney disease, unspecified; Z91.199 Patient's noncompliance with other medical treatment and regimen due to unspecified reason; Z79.82 Long term (current) use of aspirin; Z82.49 Family history of ischemic heart disease and other diseases of the circulatory system
CPT/HCPCS: 36415; 70450; 73502; 80048; 80053; 80306; 82607; 83735; 84443; 85025; 85378; 86140; 93005; 93306; 96365; 96366; 96372; 99285; G0378; J1644; J7030

== ENCOUNTER 2024-02-24 13:17 | Outpatient (CLI) | payer OTHER, SELFPAY ==
[2024-02-24 14:28] LABS: Albumin Level 4.3 g/dL (3.5-5.2); Anion Gap 17.5 (5-19); Blood Urea Nitrogen 33 mg/dL (6-20); Calcium 9.5 mg/dL (8.5-10.5); Carbon Dioxide 33 mmol/L (22-29); Chloride 89 mmol/L (98-107); Glomerular Filtration Rate 24.6 mL/min (90-130); Glucose 115 mg/dL (65-115); Phosphorus 4.6 mg/dL (2.5-4.5); Sodium 137 mmol/L (136-145)
[2024-02-24 14:38] LABS: Potassium 2.5 mmol/L (3.5-5.1)
== END 2024-02-24 13:18 | disposition home or self-care (01) ==
LOC: LAB 13:20
PROVIDERS: PCP Family Medicine; Visit Provider Internal Medicine
DX: N18.9 Chronic kidney disease, unspecified (principal)
CPT/HCPCS: 80069

== ENCOUNTER 2024-03-02 14:00 | Outpatient (CLI) | payer OTHER, SELFPAY ==
[2024-03-02 14:39] LABS: Bilirubin Urine Negative (Negative); Blood Urine Negative (Negative); Glucose Urine UA Negative (Normal); Ketones Urine Negative (Negative); Leukocyte Esterase Urine Negative (Negative); Nitrate Urine Negative (Negative); Protein Urine Negative (Negative); Urine Appearance Clear (CLEAR); Urine Color Yellow (Yellow); Urobilinogen Urine 0.2 mg/dL (Negative); pH Urine 6.5 (5-7)
[2024-03-02 14:41] LABS: Bacteria Urine None Seen /hpf; Hyaline Casts Urine 0.81 /lpf; RBC Urine 0-2 /hpf (0-2); Squamous Epithelial Cell Urine 0-5 /hpf (0-5); WBC Urine 0-5 /hpf (0-5)
[2024-03-02 14:58] LABS: UPRO/UCREAT Ratio 0.13 mg/mg CR; Urine Creatinine 94 mg/dL (39-259); Urine Protein Random 12 mg/dL
[2024-03-02 15:02] LABS: Alanine Aminotransferase 96 U/L (0-41); Albumin Level 4.1 g/dL (3.5-5.2); Alkaline Phosphatase 56 U/L (40-130); Anion Gap 15.6 (5-19); Aspartate Amino Transferase 82 U/L (0-40); Blood Urea Nitrogen 17 mg/dL (6-20); Calcium 9.1 mg/dL (8.5-10.5); Carbon Dioxide 28 mmol/L (22-29); Chloride 101 mmol/L (98-107); Globulin 3.8 g/dL (1.3-4.6); Glomerular Filtration Rate 36.3 mL/min (90-130); Glucose 84 mg/dL (65-115); Osmolality Calculated 293 mOsm/kg (285-295); Potassium 3.6 mmol/L (3.5-5.1); Sodium 141 mmol/L (136-145); Total Bilirubin 0.7 mg/dL (0.15-1.2); Total Protein 7.9 g/dL (6.6-8.7)
[2024-03-02 15:04] LABS: Parathyroid Hormone 114.3 pg/mL (15-65)
[2024-03-03 13:44] LABS: Anti-Double Strand DNA AB <1 IU/mL; Jo-1 Antibody <1.0 NEG AI (<1.0 NEG); SS-B/LA IGG <1.0 NEG AI (<1.0 NEG); Scleroderma Ab(Scl-70) Ab <1.0 NEG AI (<1.0 NEG); Ss-A/Ro Igg <1.0 NEG AI (<1.0 NEG)
[2024-03-06 08:38] LABS: ANCA Screen NEGATIVE (NEGATIVE)
== END 2024-03-02 14:01 | disposition home or self-care (01) ==
LOC: LAB 14:02
PROVIDERS: PCP Family Medicine; Visit Provider Registered Nurse
DX: N18.4 Chronic kidney disease, stage 4 (severe) (principal); R80.9 Proteinuria, unspecified
CPT/HCPCS: 36415; 80053; 81001; 82310; 82570; 83970; 84156; 86036; 86225; 86235

== ENCOUNTER 2024-03-22 08:45 | Outpatient (CLI) | payer OTHER, SELFPAY ==
--- NOTE | 2024-03-22 08:52 | MR_ITS ---
WS: [id number] MRI HEAD WITHOUT CONTRAST TECHNIQUE: Sagittal T1, T2 axial, T2 axial FLAIR, axial and coronal T1 images, axial susceptibility w eighted imaging, axial diffusion weighted images, and coronal T2 images were obtained. CLINICAL INFORMATION: PASSING OUT AND BRAIN FOG COMPARISON: Recent CT 02/24/2024 FINDINGS: Again seen is the extra-axial mass LEFT frontal lobe with associated mass effect. This measures appro ximately 3.9 x 2.8 cm. Small amount of associated internal cystic change. Contrast not administered. Findings most likely represents meningioma and possibly atypical meningioma considering some cystic d egeneration. Recommend neurosurgery consultation for biopsy/resection. Moderate mass effect in the LEFT frontal lobe. Minimal if any underlying edema. No evidence of hemorr radha. No midline shift. No hydrocephalus. Normal posterior fossa. Normal vascular flow voids at the skull base. Paranasal sinuses are well aera jocelynn. Mastoid air cells are well aerated. No hemosiderin on the susceptibly weighted images. Normal op tic chiasm and pituitary infundibulum. No other suspicious findings. MR/MR head wo con* [id number] IMPRESSION: 1. 3.9 x 2.8 cm LEFT frontal extra-axial mass with moderate mass effect on the LEFT frontal underlying brain parenchyma. Minimal if any underlying edema. Fin dings most likely represents meningioma. Contrast not administered. Recommend n eurosurgery consultation for biopsy/resection. 2. Small amount of cystic change within the LEFT frontal suspected meningioma suggestive of atypical meningioma features 3. No other acute findings
== END 2024-03-22 08:51 | disposition home or self-care (01) ==
PROVIDERS: PCP Family Medicine; Visit Provider Nurse Practitioner Family
DX: D43.2 Neoplasm of uncertain behavior of brain, unspecified (principal); G93.0 Cerebral cysts
CPT/HCPCS: 70551

== ENCOUNTER 2024-05-23 10:19 | Outpatient (CLI) | payer OTHER, SELFPAY ==
[2024-05-23 11:01] LABS: Blood Urea Nitrogen 10 mg/dL (6-20); Calcium 8.8 mg/dL (8.5-10.5); Carbon Dioxide 29 mmol/L (22-29); Chloride 105 mmol/L (98-107); Glucose 88 mg/dL (65-115); Osmolality Calculated 290 mOsm/kg (285-295); Sodium 141 mmol/L (136-145)
== END 2024-05-23 10:20 | disposition home or self-care (01) ==
PROVIDERS: PCP Family Medicine; Visit Provider Family Medicine
DX: N18.4 Chronic kidney disease, stage 4 (severe) (principal)
CPT/HCPCS: 36415; 80048

== ENCOUNTER 2024-05-31 09:02 | Outpatient (CLI) | payer OTHER, SELFPAY ==
[2024-05-31 10:15] LABS: Blood Urea Nitrogen 41 mg/dL (6-20); Calcium 12.7 mg/dL (8.5-10.5); Carbon Dioxide 33 mmol/L (22-29); Chloride 85 mmol/L (98-107); Glomerular Filtration Rate 25.7 mL/min (90-130); Glucose 111 mg/dL (65-115); Osmolality Calculated 291 mOsm/kg (285-295); Sodium 135 mmol/L (136-145)
[2024-05-31 10:20] LABS: Anion Gap 20.1 (5-19); Potassium 3.1 mmol/L (3.5-5.1)
== END 2024-05-31 09:03 | disposition home or self-care (01) ==
PROVIDERS: PCP Family Medicine; Visit Provider Registered Nurse
DX: N18.4 Chronic kidney disease, stage 4 (severe) (principal)
CPT/HCPCS: 36415; 80048

== ENCOUNTER 2024-06-01 12:44 | Outpatient (CLI) | payer OTHER, SELFPAY ==
[2024-06-01 13:17] LABS: Blood Urea Nitrogen 37 mg/dL (6-20); Calcium 10.8 mg/dL (8.5-10.5); Carbon Dioxide 31 mmol/L (22-29); Chloride 93 mmol/L (98-107); Glomerular Filtration Rate 28.1 mL/min (90-130); Glucose 124 mg/dL (65-115); Osmolality Calculated 292 mOsm/kg (285-295); Sodium 136 mmol/L (136-145)
== END 2024-06-01 12:45 | disposition home or self-care (01) ==
PROVIDERS: PCP Family Medicine; Visit Provider Internal Medicine Nephrology
DX: E87.6 Hypokalemia (principal)
CPT/HCPCS: 36415; 80048

== ENCOUNTER 2024-06-15 18:58 | Emergency (ER) | payer OTHER, SELFPAY ==
[2024-06-15 19:03] VITALS: BP 110/81; PULSE 84; RESP 17; TEMP 36.4; O2SAT 98; BMI 42.3
--- NOTE | 2024-06-15 19:12 | CTR_ITS ---
PROCEDURE INFORMATION: Exam: CT Head Without Contrast Exam date and time: 06/15/2024 7:41 PM Age: 44 years old Clinical indication: Injury or trauma; Fall; Blunt trauma (contusions or hematomas); With loss of consciousness; Loss of consciousness for 30 minutes or less; Injury date: 06/15/2024; Prior surgery; Surgery date: <1 month; Surgery type: Crainotomy TECHNIQUE: Imaging protocol: Computed tomography of the head without contrast. Radiation optimization: All CT scans at this facility use at least one of these dose optimization techniques: automated exposure control; mA and/or kV adjustment per patient size (includes targeted exams where dose is matched to clinical indication); or iterative reconstruction. COMPARISON: MR head wo con* [id number] 03/22/2024 8:57 AM RADIATION DOSE METRICS: Total DLP (mGy-cm): 1116.65 FINDINGS: Brain: Since the prior MRI the left frontal extra-axial mass has been resected. There are new postoperative changes from craniotomy including a few gas droplets in the operative bed and a small infarct in the left frontal cortex. No extra-axial fluid collection or midline shift. Cerebral ventricles: No ventriculomegaly. Paranasal sinuses: Visualized sinuses are unremarkable. No fluid levels. Mastoid air cells: Visualized mastoid air cells are well aerated. Bones: See Brain finding. Soft tissues: No hematoma. CT/CT head wo con* [id number] IMPRESSION: Recently resected left frontal mass. Residual postop changes as described.
[2024-06-15 19:37] VITALS: PULSE 82; RESP 18; O2SAT 95
[2024-06-15 19:47] LABS: Basophils # 0.1 10^3/uL (0.0-0.1); Basophils % 0.8 %; Eosinophils # 0.2 10^3/uL (0.0-0.8); Eosinophils % 1.6 %; Hematocrit 46.6 % (37-53); Lymphocytes % 24.3 %; Mean Corpuscular HGB Conc 35.6 g/dL (30-55); Mean Corpuscular Hemoglobin 31.2 pg (27-33); Mean Corpuscular Volume 87.6 fl (82-101); Mean Platelet Volume 9.1 fL (7.4-10.4); Monocytes # 1.3 10^3/uL (0.2-0.9); Monocytes % 10.5 %; Neutrophils # 7.83 10^3/uL (1.8-7.7); Neutrophils % 62.5 %; Nucleated Red Blood Cells % 0 %; Platelet Count 395 10^3/cmm (157-399); Red Blood Count 5.32 10^6/uL (3.85-5.65); White Blood Count 12.53 10^3/uL (3.29-11.43)
--- NOTE | 2024-06-15 19:49 | W.ED.FALL ---
HPI - Fall General: Chief Complaint: Fall Stated Complaint: Fell hit head, Head surgery 06/03/24 Time Seen by Provider: 06/15/24 19:13 Source: patient Mode of arrival: ambulatory Limitations: no limitations History of Present Illness: 44-year-old male who has a history of craniotomy for brain tumor on June 03. He states that he fell today. States he hit the right side of his head when he fell 7 roughly an hour ago he is unsure if he had a loss of consciousness he is has a mild headache. States he has had some slight weakness he had a fall 3 days ago as well. Has had a history of low potassium he denies any neck pain denies any pain elsewhere. Associated symptoms-after fall: Reports headache(s); Denies abdominal pain, chest pain or neck pain Related Data Home Medications ?Medication ?Instructions ?Recorded ?Confirmed carvedilol 25 mg tablet 25 mg PO BID 02/08/24 02/24/24 diclofenac sodium 1 % topical gel 4 g topical QID PRN joint pain 02/08/24 02/24/24 (Voltaren Arthritis Pain) sertraline 100 mg tablet 150 mg PO DAILY 02/08/24 02/24/24 trazodone 100 mg tablet 200 mg PO BEDTIME 02/08/24 02/24/24 aripiprazole 10 mg tablet 10 mg PO BEDTIME 02/24/24 02/24/24 aspirin 81 mg tablet,delayed 81 mg PO DAILY 02/24/24 02/24/24 release cholecalciferol (vitamin D3) 25 25 mcg PO DAILY 02/24/24 02/24/24 mcg (1,000 unit) tablet (Vitamin D3) furosemide 40 mg tablet 40 mg PO BID 02/24/24 02/24/24 Held on 02/25/24. Instructions: Resume on 02/28/24. lidocaine 5 % topical patch 1 patch topical DAILY PRN Pain 02/24/24 02/24/24 potassium chloride 20 mEq See Rx Instructions .Route .COMPLEX 02/24/24 02/24/24 tablet,extended release(part/cryst) (Klor-Con M) Previous Rx's ?Medication ?Instructions ?Recorded hydralazine 100 mg tablet 100 mg PO TID #270 tabs 07/02/22 isosorbide dinitrate 20 mg tablet 20 mg PO BID #180 tabs 07/02/22 CAM walker #1 ea 06/23/23 magnesium oxide 400 mg PO BID #14 tabs 11/09/23 hydrocodone 5 mg-acetaminophen 325 1 tab PO Q6H PRN pain #14 tabs 02/08/24 mg tablet Allergies Allergy/AdvReac Type Severity Reaction Status Date / Time No Known Allergies Allergy Verified 06/15/24 19:07 Review of Systems Const: Denies: fever(s), chills, body aches or change in appetite ENMT: Denies: throat pain or dental pain Card: Denies: chest pain Resp: Denies: dyspnea GI: Denies: abdominal pain, nausea, vomiting or diarrhea Musc: Denies: neck pain or back pain Skin/Breast: Denies: rash Neuro: Reports: headache(s) PFSH ED PFSH: Medical History Syncope Orthostatic hypotension Hypokalemia CKD (chronic kidney disease) Hypokalemia Intravenous drug abuse Essential hypertension Family History Other CAD (coronary artery disease) Social History Smoking and tobacco/nicotine status: unknown if used tobacco/nicotine Alcohol intake: current Alcohol intake frequency: few times a month Substance/Drug Use: current Physical Exam Const: COMMON NORMALS: no acute distress, patient oriented x3 and healthy appearing HENMT: COMMON NORMALS: normocephalic and atraumatic HEAD & SCALP: normocephalic and atraumatic Neck/C-Spine: COMMON NORMALS: full ROM and supple Chest: COMMONS NORMALS: normal inspection of the chest Resp: COMMON NORMALS: normal respiratory effort, No retractions, No use of accessory muscles and clear to auscultation bilaterally AUSCULTATION: clear to auscultation bilaterally Cardio: COMMON NORMALS: regular rate, regular rhythm and No murmurs present (Cardio) RATE: regular rate RHYTHM: regular rhythm GI: COMMON NORMALS: Normal to inspection, nondistended, normoactive bowel sounds present, Soft to palpation, non-tender and no masses PALPATION: Yes Soft to palpation Extremity: COMMON NORMALS: normal to inspection and full ROM Neuro: COMMON NORMALS: patient oriented x3, moves all extremities and no focal motor deficits Psych: COMMON NORMALS: mental status grossly normal, Normal thought process present and cooperative THOUGHT PROCESS: Normal thought process present Skin: COMMON NORMALS: no rashes or lesions noted and no wounds GENERAL SKIN EXAM: no rashes or lesions noted Course Vital Signs: Vital signs: Vital Signs Temperature 97.5 F L 06/15/24 19:03 Pulse Rate 82 06/15/24 19:37 Respiratory Rate 18 06/15/24 19:37 Blood Pressure 110/81 06/15/24 19:03 Pulse Oximetry 95 06/15/24 19:37 Oxygen Delivery Me thod Room Air 06/15/24 19:03 MDM - Fall Medical Decision Making Patient presents with hypokalemia he also had close injury from a fall. Did give him a potassium here he is to increase his potassium at home he is follow-up with PCP next week to have his potassium redrawn head CT was normal he understands agrees to plan. Medical Records I reviewed the patient's medical records. Lab Data I reviewed the patient's lab results. 06/15/24 19:40 06/15/24 19:[address] 06/15/24 19:12 IMPRESSION: Recently resected left frontal mass. Residual postop changes as described. Laboratory Results WBC 12.53 10^3/uL (3.29-11.43) H 06/15/24 19:40 RBC 5.32 10^6/uL (3.85-5.65) 06/15/24 19:40 Hgb 16.60 g/dL (11.27-16.99) 06/15/24 19:40 Hct 46.6 % (37-53) 06/15/24 19:40 MCV 87.6 fl (82-101) 06/15/24 19:40 MCH 31.2 pg (27-33) 06/15/24 19:40 MCHC 35.6 g/dL (30-55) 06/15/24 19:40 RDW 12.0 % (12.1-15.1) L 06/15/24 19:40 Plt Count 395 10^3/cmm (157-399) 06/15/24 19:40 MPV 9.1 fL (7.4-10.4) 06/15/24 19:40 Neut % (Auto) 62.5 % 06/15/24 19:40 Lymph % (Auto) 24.3 % 06/15/24 19:40 [place] % (Auto) 10.5 % 06/15/24 19:40 Eos % (Auto) 1.6 % 06/15/24 19:40 Baso % (Auto) 0.8 % 06/15/24 19:40 Neut # (Auto) 7.83 10^3/uL (1.8-7.7) H 06/15/24 19:40 Lymph # (Auto) 3.0 10^3/uL (0.8-4.8) 06/15/24 19:40 [place] # (Auto) 1.3 10^3/uL (0.2-0.9) H 06/15/24 19:40 Eos # (Auto) 0.2 10^3/uL (0.0-0.8) 06/15/24 19:40 Baso # (Auto) 0.1 10^3/uL (0.0-0.1) 06/15/24 19:40 Nucleated RBC % (auto) 0 % 06/15/24 19:40 Nucleated RBCs # 0.0 /100WBC 06/15/24 19:40 Sodium 135 mmol/L (136-145) L 06/15/24 19:40 Potassium 2.6 mmol/L (3.5-5.1) L* 06/15/24 19:40 Chloride 89 mmol/L (98-107) L 06/15/24 19:40 Carbon Dioxide 31 mmol/L (22-29) H 06/15/24 19:40 Anion Gap 17.6 (5-19) 06/15/24 19:40 BUN 43 mg/dL (6-20) H 06/15/24 19:40 Creatinine 2.9 mg/dL (0.7-1.2) H 06/15/24 19:40 GFR Calculation 23.6 mL/min (90-130) L 06/15/24 19:40 Glucose 78 mg/dL (65-115) 06/15/24 19:40 Calculated Osmolality 290 mOsm/kg (285-295) 06/15/24 19:40 Calcium 10.5 mg/dL (8.5-10.5) 06/15/24 19:40 Magnesium 2.0 mg/dL (1.7-2.3) 06/15/24 19:40 Total Bilirubin 0.4 mg/dL (0.15-1.2) 06/15/24 19:40 AST 31 U/L (0-40) 06/15/24 19:40 ALT 38 U/L (0-41) 06/15/24 19:40 Alkaline Phosphatase 67 U/L (40-130) 06/15/24 19:40 Total Protein 9.1 g/dL (6.6-8.7) H 06/15/24 19:40 Albumin 4.3 g/dL (3.5-5.2) 06/15/24 19:40 Globulin 4.8 g/dL (1.3-4.6) H 06/15/24 19:40 All radiology interpretation(s) finalized by discharge Discharge Plan Discharge Patient Disposition: Home Clinical Impression: Closed head injury, Hypokalemia Condition: Stable Prescriptions: No Action (DME) CAM walker See Rx Instructions .Route .MEDSUPPLY Qty: 1 0RF Rx Instructions: As directed hydralazine 100 mg tablet 100 mg PO TID Qty: 270 1RF isosorbide dinitrate 20 mg tablet 20 mg PO BID Qty: 180 1RF magnesium oxide 400 mg magnesium tablet 400 mg PO BID Qty: 14 0RF hydrocodone-acetaminophen 5-325 mg tablet 1 tab PO Q6H PRN (Reason: pain) Qty: 14 0RF sertraline 100 mg Tablet 150 mg PO DAILY trazodone 100 mg Tablet 200 mg PO BEDTIME diclofenac sodium [Voltaren Arthritis Pain] 1 % Gel 4 g TOPICAL QID PRN (Reason: joint pain) Rx Instructions: apply to single knee, ankle, foot; for foot includes sole/toes/top of foot carvedilol 25 mg Tablet 25 mg PO BID Rx Instructions: must administer with a meal/food aripiprazole 10 mg Tablet 10 mg PO BEDTIME aspirin 81 mg Tablet,Delayed Release (Dr/Ec) 81 mg PO DAILY lidocaine 5 % Adhesive Patch,Medicated 1 patch TOPICAL DAILY PRN (Reason: Pain) Rx Instructions: leave on most painful area for up to 12 hrs cholecalciferol (vitamin D3) [Vitamin D3] 25 mcg (1,000 unit) Tablet 25 mcg PO DAILY furosemide 40 mg tablet 40 mg PO BID potassium chloride [Klor-Con M20] 20 mEq tablet,ER particles/crystals See Rx Instructions .ROUTE .COMPLEX Rx Instructions: Take 1 tablet by mouth twice daily and take 1 tablet as needed for potassium supplementation. Discharge Orders: Discharge ED (Routine); Ordered 06/15/24 Ordered By: Sheron De La Rosa Referrals: Tawanna Nguyen MD [Primary Care Provider] - Discharge Diet: Advance as tolerated Discharge Activity: Resume usual activity Patient Instructions: Hypokalemia (ED), Head Injury (ED) Print Language: Lithuanian Coding Level of Care Code ED [employer] for Joe Blum
[2024-06-15 20:05] LABS: Alanine Aminotransferase 38 U/L (0-41); Albumin Level 4.3 g/dL (3.5-5.2); Alkaline Phosphatase 67 U/L (40-130); Anion Gap 17.6 (5-19); Aspartate Amino Transferase 31 U/L (0-40); Blood Urea Nitrogen 43 mg/dL (6-20); Calcium 10.5 mg/dL (8.5-10.5); Carbon Dioxide 31 mmol/L (22-29); Chloride 89 mmol/L (98-107); Creatinine Clr Calc Pharmacy 44.2806; Globulin 4.8 g/dL (1.3-4.6); Glomerular Filtration Rate 23.6 mL/min (90-130); Glucose 78 mg/dL (65-115); Osmolality Calculated 290 mOsm/kg (285-295); Sodium 135 mmol/L (136-145); Total Bilirubin 0.4 mg/dL (0.15-1.2); Total Protein 9.1 g/dL (6.6-8.7)
[2024-06-15 20:21] LABS: Potassium 2.6 mmol/L (3.5-5.1)
[2024-06-15] MEDS: potassium chloride ER 20 mEq Tablet 60 MEQ PO (20:33)
[2024-06-15 21:07] VITALS: BP 135/105; PULSE 98; RESP 20; O2SAT 98
[2024-06-15 21:27] VITALS: BP 135/105; PULSE 94; O2SAT 96
== END 2024-06-15 21:28 | disposition home or self-care (01) ==
PROVIDERS: Emergency Provider Emergency Medicine; PCP Family Medicine
DX: S09.8XXA Other specified injuries of head, initial encounter (principal); E87.6 Hypokalemia; Z79.82 Long term (current) use of aspirin; I12.9 Hypertensive chronic kidney disease with stage 1 through stage 4 chronic kidney disease, or unspecified chronic kidney disease; N18.9 Chronic kidney disease, unspecified; W19.XXXA Unspecified fall, initial encounter
CPT/HCPCS: 36415; 70450; 80053; 83735; 85025; 99284

== ENCOUNTER 2024-06-21 23:49 | Emergency (ER) | payer OTHER, SELFPAY ==
[2024-06-21 23:52] VITALS: BP 146/98; PULSE 86; RESP 18; TEMP 36.4; O2SAT 93; BMI 42.3
--- NOTE | 2024-06-21 23:56 | CTR_ITS ---
PROCEDURE INFORMATION: Exam: CT Head Without Contrast Exam date and time: 06/22/2024 12:06 AM Age: 44 years old Clinical indication: Injury or trauma; Blunt trauma (contusions or hematomas); Injury details: Fall, head injury, recent craniotomy; Prior surgery; Surgery date: <1 month TECHNIQUE: Imaging protocol: Computed tomography of the head without contrast. Radiation optimization: All CT scans at this facility use at least one of these dose optimization techniques: automated exposure control; mA and/or kV adjustment per patient size (includes targeted exams where dose is matched to clinical indication); or iterative reconstruction. COMPARISON: CT head wo con* 06/15/2024 7:41 PM RADIATION DOSE METRICS: Total DLP (mGy-cm): 1236.78 FINDINGS: Brain: No acute intracranial hemorrhage. No acute large territory infarct. Left frontal resection cavity, with trace residual pneumocephalus adjacent to it. No midline shift or mass effect. Cerebral ventricles: No ventriculomegaly. Paranasal sinuses: Visualized paranasal sinuses are clear. Mastoid air cells: Visualized mastoid air cells are well-aerated. Bones: Status post left parietal craniotomy. No acute fracture. Soft tissues: Unremarkable. CT/CT head wo con* [id number] IMPRESSION: 1. No acute intracranial abnormality identified. 2. Left frontal resection cavity, with trace residual pneumocephalus adjacent to it. 3. Status post left parietal craniotomy.
--- NOTE | 2024-06-22 00:12 | W.ED.FALL ---
HPI - Fall General: Chief Complaint: Fall Stated Complaint: Fell Hit Head Time Seen by Provider: 06/21/24 23:53 History of Present Illness: 44-year-old man with a history of fairly recent craniotomy and an apparent benign tumor removal who presents to the emergency room after a fall today. reports he has had a couple of 30 to 40 seconds seizures after which he is immediately alert. He fell both times and the second time he hit his head and has dehisced part of the wound from his craniotomy. Some mild bleeding which appears controlled at this point. He is on Keppra they say. Related Data Home Medications ?Medication ?Instructions ?Recorded ?Confirmed carvedilol 25 mg tablet 25 mg PO BID 02/08/24 02/24/24 diclofenac sodium 1 % topical gel 4 g topical QID PRN joint pain 02/08/24 02/24/24 (Voltaren Arthritis Pain) sertraline 100 mg tablet 150 mg PO DAILY 02/08/24 02/24/24 trazodone 100 mg tablet 200 mg PO BEDTIME 02/08/24 02/24/24 aripiprazole 10 mg tablet 10 mg PO BEDTIME 02/24/24 02/24/24 aspirin 81 mg tablet,delayed 81 mg PO DAILY 02/24/24 02/24/24 release cholecalciferol (vitamin D3) 25 25 mcg PO DAILY 02/24/24 02/24/24 mcg (1,000 unit) tablet (Vitamin D3) furosemide 40 mg tablet 40 mg PO BID 02/24/24 02/24/24 Held on 02/25/24. Instructions: Resume on 02/28/24. lidocaine 5 % topical patch 1 patch topical DAILY PRN Pain 02/24/24 02/24/24 potassium chloride 20 mEq See Rx Instructions .Route .COMPLEX 02/24/24 02/24/24 tablet,extended release(part/cryst) (Klor-Con M) Previous Rx's ?Medication ?Instructions ?Recorded hydralazine 100 mg tablet 100 mg PO TID #270 tabs 07/02/22 isosorbide dinitrate 20 mg tablet 20 mg PO BID #180 tabs 07/02/22 CAM walker #1 ea 06/23/23 magnesium oxide 400 mg PO BID #14 tabs 11/09/23 hydrocodone 5 mg-acetaminophen 325 1 tab PO Q6H PRN pain #14 tabs 02/08/24 mg tablet cephalexin 500 mg capsule 500 mg PO BID 10 days #20 caps 06/22/24 potassium chloride 20 mEq 40 meq (2 x 20 mEq) PO DAILY 7 06/22/24 tablet,extended release(part/cryst) days #7 tabs Allergies Allergy/AdvReac Type Severity Reaction Status Date / Time No Known Allergies Allergy Verified 06/21/24 23:58 Review of Systems Narrative: Constitutional symptoms: Negative except as documented in HPI. Skin symptoms: Negative except as documented in HPI. Eye symptoms: Negative except as documented in HPI. ENMT symptoms: Negative except as documented in HPI. Respiratory symptoms: Negative except as documented in HPI. Cardiovascular symptoms: Negative except as documented in HPI. Gastrointestinal symptoms: Negative except as documented in HPI. Genitourinary symptoms: Negative except as documented in HPI. Musculoskeletal symptoms: Negative except as documented in HPI. Neurologic symptoms: Negative except as documented in HPI. Psychiatric symptoms: Negative except as documented in HPI. Endocrine symptoms: Negative except as documented in HPI. PFSH ED PFSH: Medical History Syncope Orthostatic hypotension Hypokalemia CKD (chronic kidney disease) Hypokalemia Intravenous drug abuse Essential hypertension Family History Other CAD (coronary artery disease) Social History Smoking and tobacco/nicotine status: unknown if used tobacco/nicotine Alcohol intake: current Alcohol intake frequency: few times a month Substance/Drug Use: current Physical Exam Narrative: EXAM NARRATIVE: General: Alert, no acute distress. Skin: Warm, dry. Head: Normocephalic, large postsurgical incision down the left side of skull. There is a 3 inch gap that has dehisced. Neck: Supple, trachea midline. Eye: Extraocular movements are intact. Ears, nose, mouth and throat: mucosa moist. Cardiovascular: Regular, Normal peripheral perfusion. Respiratory: Lungs are clear to auscultation, respirations are non-labored, breath sounds are equal, Symmetrical chest wall expansion. Gastrointestinal: Soft, Nontender, Non distended Musculoskeletal: Normal ROM, no deformity. Neurological: Alert and oriented, No focal neurological deficit observed. Psychiatric: Cooperative, appropriate mood & affect. Course Vital Signs: Vital signs: Vital Signs Temperature 97.6 F 06/21/24 23:52 Pulse Rate 84 06/22/24 00:46 Respiratory Rate 18 06/22/24 00:46 Blood Pressure 147/94 06/22/24 00:46 Pulse Oximetry 91 06/22/24 00:46 Oxygen Delivery Me thod Room Air 06/22/24 00:46 MDM - Fall Medical Decision Making CT head: Postsurgical changes. No acute intracranial process. no intracranial hemorrhage, no evidence of infarct. no evidence of acute fracture.This was reviewed and interpreted by myself the ER physician. Lab Review: Laboratory results were reviewed and interpreted by myself the emergency room physician. Potassium is low at 2.4. He has historical issues with this. Potassium is being replaced along with magnesium empirically. EKG: Time 2:29 AM. Rate 84. Normal sinus rhythm, some ST depression that is diffuse and unchanged from previous EKGs., no ectopy, normal OK & QRS intervals, This was reviewed and interpreted by myself the ER physician at 2:35 AM I reviewed the patient's medical record. Consultation: I spoke with Dr. Holguin who is on-call for . He recommends washing out and stapling the open area and follow-up later this week in clinic. Reexamination: Patient remained stable. No increased work of breathing. No altered mental status. No focal motor deficits. After cleaning up the lesions it appears that the patient had just broken off a couple of scabs. There is no deep dehiscence. Only superficial. No closure was required Assessment and plan: Wound dehiscence Syncope Hypokalemia ?40 mill equivalents IV and 40 mill equivalents p.o. potassium. 2 g IV magnesium. - Discharged home - Discussed findings and plan with patient. Answered any questions. - All laboratory values were reviewed and interpreted personally by myself, the ER physician - All imaging was reviewed and interpreted personally by myself, the ER physician. - Evaluation and treatment of this problem were appropriate in the emergency setting Lab Data 06/22/24 00:42 06/22/24 00:[address] 06/21/24 23:56 IMPRESSION: 1. No acute intracranial abnormality identified. 2. Left frontal resection cavity, with trace residual pneumocephalus adjacent to it. 3. Status post left parietal craniotomy. Laboratory Results WBC 10.32 10^3/uL (3.29-11.43) 06/22/24 00:42 RBC 5.22 10^6/uL (3.85-5.65) 06/22/24 00:42 Hgb 16.10 g/dL (11.27-16.99) 06/22/24 00:42 Hct 46.0 % (37-53) 06/22/24 00:42 MCV 88.1 fl (82-101) 06/22/24 00:42 MCH 30.8 pg (27-33) 06/22/24 00:42 MCHC 35.0 g/dL (30-55) 06/22/24 00:42 RDW 11.9 % (12.1-15.1) L 06/22/24 00:42 Plt Count 356 10^3/cmm (157-399) 06/22/24 00:42 MPV 9.2 fL (7.4-10.4) 06/22/24 00:42 Neut % (Auto) 69.4 % 06/22/24 00:42 Lymph % (Auto) 19.3 % 06/22/24 00:42 [place] % (Auto) 9.9 % 06/22/24 00:42 Eos % (Auto) 0.4 % 06/22/24 00:42 Baso % (Auto) 0.7 % 06/22/24 00:42 Neut # (Auto) 7.17 10^3/uL (1.8-7.7) 06/22/24 00:42 Lymph # (Auto) 2.0 10^3/uL (0.8-4.8) 06/22/24 00:42 [place] # (Auto) 1.0 10^3/uL (0.2-0.9) H 06/22/24 00:42 Eos # (Auto) 0.0 10^3/uL (0.0-0.8) 06/22/24 00:42 Baso # (Auto) 0.1 10^3/uL (0.0-0.1) 06/22/24 00:42 Nucleated RBC % (auto) 0 % 06/22/24 00:42 Nucleated RBCs # 0.0 /100WBC 06/22/24 00:42 Sodium 130 mmol/L (136-145) L 06/22/24 00:42 Potassium 2.4 mmol/L (3.5-5.1) L* 06/22/24 00:42 Chloride 83 mmol/L (98-107) L 06/22/24 00:42 Carbon Dioxide 33 mmol/L (22-29) H 06/22/24 00:42 Anion Gap 16.4 (5-19) 06/22/24 00:42 BUN 29 mg/dL (6-20) H 06/22/24 00:42 Creatinine 2.4 mg/dL (0.7-1.2) H 06/22/24 00:42 GFR Calculation 29.4 mL/min (90-130) L 06/22/24 00:42 Glucose 123 mg/dL (65-115) H 06/22/24 00:42 Calculated Osmolality 277 mOsm/kg (285-295) L 06/22/24 00:42 Lactic Acid 1.8 mmol/L (0.5-2.2) 06/22/24 00:42 Calcium 10.6 mg/dL (8.5-10.5) H 06/22/24 00:42 Total Bilirubin 1.0 mg/dL (0.15-1.2) 06/22/24 00:42 AST 32 U/L (0-40) 06/22/24 00:42 ALT 28 U/L (0-41) 06/22/24 00:42 Alkaline Phosphatase 72 U/L (40-130) 06/22/24 00:42 Total Protein 8.9 g/dL (6.6-8.7) H 06/22/24 00:42 Albumin 4.2 g/dL (3.5-5.2) 06/22/24 00:42 Globulin 4.7 g/dL (1.3-4.6) H 06/22/24 00:42 Coronavirus (PCR) Negative (Negative) 06/22/24 00:42 Influenza A (PCR) Negative (Negative) 06/22/24 00:42 Influenza Type B (PCR) Negative (Negative) 06/22/24 00:42 RSV (PCR) Negative (Negative) 06/22/24 00:42 All radiology interpretation(s) finalized by discharge Discharge Plan Discharge Patient Disposition: Home Clinical Impression: Dehiscence of wound, Hypokalemia, Seizure Condition: Stable Prescriptions: New potassium chloride 20 mEq tablet,ER particles/crystals 40 meq PO DAILY 7 Days Qty: 7 0RF cephalexin 500 mg capsule 500 mg PO BID 10 Days Qty: 20 0RF No Action (DME) DANILO tavera See Rx Instructions .Route .MEDSUPPLY Qty: 1 0RF Rx Instructions: As directed hydralazine 100 mg tablet 100 mg PO TID Qty: 270 1RF isosorbide dinitrate 20 mg tablet 20 mg PO BID Qty: 180 1RF magnesium oxide 400 mg magnesium tablet 400 mg PO BID Qty: 14 0RF hydrocodone-acetaminophen 5-325 mg tablet 1 tab PO Q6H PRN (Reason: pain) Qty: 14 0RF sertraline 100 mg Tablet 150 mg PO DAILY trazodone 100 mg Tablet 200 mg PO BEDTIME diclofenac sodium [Voltaren Arthritis Pain] 1 % Gel 4 g TOPICAL QID PRN (Reason: joint pain) Rx Instructions: apply to single knee, ankle, foot; for foot includes sole/toes/top of foot carvedilol 25 mg Tablet 25 mg PO BID Rx Instructions: must administer with a meal/food aripiprazole 10 mg Tablet 10 mg PO BEDTIME aspirin 81 mg Tablet,Delayed Release (Dr/Ec) 81 mg PO DAILY lidocaine 5 % Adhesive Patch,Medicated 1 patch TOPICAL DAILY PRN (Reason: Pain) Rx Instructions: leave on most painful area for up to 12 hrs cholecalciferol (vitamin D3) [Vitamin D3] 25 mcg (1,000 unit) Tablet 25 mcg PO DAILY furosemide 40 mg tablet 40 mg PO BID potassium chloride [Klor-Con M20] 20 mEq tablet,ER particles/crystals See Rx Instructions .ROUTE .COMPLEX Rx Instructions: Take 1 tablet by mouth twice daily and take 1 tablet as needed for potassium supplementation. Discharge Orders: Discharge ED (Routine); Ordered 06/22/24 Ordered By: Telma Spivey Referrals: Tawanna Nguyen MD [Primary Care Provider] - Discharge Diet: Usual diet Discharge Activity: Increase activity as tolerated Patient Instructions: Opioid Safety, Pain Management Activity Restrictions/Additional Instructions: Spoke with the neurosurgeon on-call for your neurosurgeon he recommends that you follow in clinic later this week. Thank you for choosing [facility] for your healthcare needs today. Please realize this is an emergency room and that we are providing you with a medical screening exam and this may not be complete and all inclusive of all the testing and or work up that you may need to determine your ailment or severity of your illness. You have been screened and evaluated and felt safe for discharge. Health conditions do change or evolve sometimes and as such it is important that you follow up with your Primary Doctor to be re checked, 3-5 days is a general good time frame for follow up. You are always welcome to return to the ED for re assessment if your symptoms are worsening or you have new concerns Print Language: Telugu Coding Level of Care Code ED Director Pharmacology for Joe Blum
[2024-06-22 00:17] VITALS: BP 146/99; PULSE 86; RESP 16; O2SAT 93
[2024-06-22 00:46] VITALS: BP 147/94; PULSE 84; RESP 18; O2SAT 91
[2024-06-22 00:57] LABS: Basophils # 0.1 10^3/uL (0.0-0.1); Basophils % 0.7 %; Eosinophils % 0.4 %; Lymphocytes % 19.3 %; Mean Corpuscular Hemoglobin 30.8 pg (27-33); Mean Corpuscular Volume 88.1 fl (82-101); Mean Platelet Volume 9.2 fL (7.4-10.4); Monocytes % 9.9 %; Neutrophils # 7.17 10^3/uL (1.8-7.7); Neutrophils % 69.4 %; Nucleated Red Blood Cells % 0 %; Platelet Count 356 10^3/cmm (157-399); Red Blood Count 5.22 10^6/uL (3.85-5.65); Red Cell Distribution Width 11.9 % (12.1-15.1); White Blood Count 10.32 10^3/uL (3.29-11.43)
[2024-06-22 01:12] LABS: Alanine Aminotransferase 28 U/L (0-41); Albumin Level 4.2 g/dL (3.5-5.2); Alkaline Phosphatase 72 U/L (40-130); Anion Gap 16.4 (5-19); Aspartate Amino Transferase 32 U/L (0-40); Blood Urea Nitrogen 29 mg/dL (6-20); Calcium 10.6 mg/dL (8.5-10.5); Carbon Dioxide 33 mmol/L (22-29); Chloride 83 mmol/L (98-107); Creatinine Clr Calc Pharmacy 53.5057; Globulin 4.7 g/dL (1.3-4.6); Glomerular Filtration Rate 29.4 mL/min (90-130); Glucose 123 mg/dL (65-115); Osmolality Calculated 277 mOsm/kg (285-295); Sodium 130 mmol/L (136-145); Total Protein 8.9 g/dL (6.6-8.7)
[2024-06-22 01:13] LABS: Lactic Sepsis W/Reflex 1.8 mmol/L (0.5-2.2)
[2024-06-22 01:19] LABS: Potassium 2.4 mmol/L (3.5-5.1)
[2024-06-22 01:30] LABS: Covid PCR NEGATIVE (Negative); Influenza A NEGATIVE (Negative); Influenza B NEGATIVE (Negative); Respiratory Syncytial Virus Ce NEGATIVE (Negative)
[2024-06-22] MEDS: potassium chloride oral liq 20 mEq/15 mL UDC 40 MEQ PO (02:09)
[2024-06-22] MEDS: lidocaine-epi 1% 20 mL INJ INJECTION (02:17)
[2024-06-22] MEDS: potassium chloride premix 100 ML 25 MEQ IV (02:25)
--- NOTE | 2024-06-22 02:29 | ECG_ITS ---
[facility] Date: 2024-06-22 Pat Name: Doug Frank Department: Room: Gender: Male Hat Mender: : 1980 Requested By: Telma Plummer Order Number: [id number] Mar MD: Dayana Caruso M.D. Measurements Intervals [place] Rate: 84 P: 35 CT: 195 QRS: -47 QRSD: 111 T: 69 QT: 379 QTc: 448 Interpretive Statements SINUS RHYTHM POSSIBLE LEFT ATRIAL ENLARGEMENT [-0.1mV P-WAVE IN V1/V2] LEFT AXIS DEVIATION [QRS AXIS < -30] MODERATE INTRAVENTRICULAR CONDUCTION DELAY [110+ ms QRS DURATION] MODERATE ST DEPRESSION [0.05+ mV ST DEPRESSION] Compared to ECG 02/24/2024 13:29:32 Intraventricular conduction delay now present ST (T wave) deviation still present Electronically Signed On 06-22-2024 17:49:22 OCCUP THER by Dayana Caruso M.D. [email or web address]
[2024-06-22 02:35] VITALS: BP 130/92; PULSE 91; RESP 18; O2SAT 92
--- NOTE | 2024-06-22 03:10 | PC.NURSE ---
SHORTLY AFTER POTASSIUM INFUSION BEGAN, PT ASKED THAT IT BE STOPPED. NURSE STOPPED POTASSIUM AND MADE PROVIDER AWARE.
[2024-06-22 03:25] VITALS: BP 126/96; PULSE 84; RESP 16; O2SAT 91
[2024-06-22] MEDS: magnesium sulfate premix 2 GM/50 ML PIGGYBACK IV (04:09)
[2024-06-22 04:38] VITALS: BP 122/83; PULSE 84; RESP 18; O2SAT 90
[2024-06-22 05:34] VITALS: BP 137/95; PULSE 82; RESP 18; O2SAT 94
== END 2024-06-22 05:36 | disposition home or self-care (01) ==
PROVIDERS: Emergency Provider Emergency Medicine; PCP Family Medicine
DX: T81.31XA Disruption of external operation (surgical) wound, not elsewhere classified, initial encounter (principal); X58.XXXA Exposure to other specified factors, initial encounter; E87.6 Hypokalemia; R56.9 Unspecified convulsions; Z11.52 Encounter for screening for COVID-19; I12.9 Hypertensive chronic kidney disease with stage 1 through stage 4 chronic kidney disease, or unspecified chronic kidney disease; N18.9 Chronic kidney disease, unspecified
CPT/HCPCS: 70450; 80053; 83605; 85025; 87637; 93005; 96365; 96367; 99285; J3475; J3480

== ENCOUNTER 2024-07-06 10:13 | Outpatient (CLI) | payer OTHER, SELFPAY ==
[2024-07-06 11:18] LABS: Anion Gap 16.1 (5-19); Blood Urea Nitrogen 30 mg/dL (6-20); Carbon Dioxide 29 mmol/L (22-29); Chloride 98 mmol/L (98-107); Glomerular Filtration Rate 38.5 mL/min (90-130); Glucose 129 mg/dL (65-115); Osmolality Calculated 298 mOsm/kg (285-295); Potassium 3.1 mmol/L (3.5-5.1); Sodium 140 mmol/L (136-145)
== END 2024-07-06 10:14 | disposition home or self-care (01) ==
LOC: LAB 10:16
PROVIDERS: PCP Family Medicine; Visit Provider Internal Medicine Nephrology
DX: E87.6 Hypokalemia (principal)
CPT/HCPCS: 36415; 80048

== ENCOUNTER 2024-07-11 11:47 | Emergency (ER) | payer OTHER, SELFPAY ==
[2024-07-11 12:00] VITALS: BP 109/71; PULSE 70; TEMP 36.8; O2SAT 94; BMI 42.7
[2024-07-11 12:13] VITALS: BP 121/81
--- NOTE | 2024-07-11 12:15 | CT_ITS ---
WS: [id number] CT HEAD NONCONTRAST HISTORY: post op infection, history of LEFT frontal craniotomy for brain tumor. Possible infection at the incision site of the craniotomy. TECHNIQUE: Contiguous axial imaging performed through the brain. Bone and soft tissue windows. Sagittal and coronal reformats reviewed. All CT scans at [facility] use at least one of these dose optimization techniques: automated exposure control; mA and/or kV adjustment per patient size (includes targeted exams where dose is matched to clinical indication); or iterative reconstruction. DLP: 1110.08 mGy.cm COMPARISON: Prior CT 06/22/2024, 06/15/2024, MR 03/22/2024 Reidentified is the LEFT frontal tumor resection site with edema and loss of the adjacent moser-white matter differentiation. Extent of the edema has progressed since 06/22/2024. There is increasing edema in the LEFT frontal lobe extending to the cortex and also now extending to the LEFT ventricle. Extent of the edema measures 4.4 x 5.0 x 4.8 cm. Prior measurements were 2.6 x 2.7 x 2.7 cm. There are a few foci of air remaining at the resection site. No atrophy or prior infarcts or herniation. Ventricles: Normal size with no hydrocephalus. No inferior displacement of the cerebellar tonsils. Paranasal sinuses: As visualized are clear. Mastoid air cells: Well pneumatized. Calvarium and scalp: LEFT frontal craniotomy site. Craniotomy site appears similar to the prior study. Mild soft tissue edema and swelling in the scalp over the craniotomy site does appears more prominent as compared to 06/22/2024. CT/CT head wo con* [id number] IMPRESSION: 1. Status post recent resection of a LEFT frontal brain tumor. 2. Since 06/22/2024 there has been an increase in the amount of postoperative LEFT frontal lobe edema. With the new edema in the LEFT frontal lobe consider p ostoperative cerebritis or infection or ischemia. Recommend follow-up with neur osurgeon. MRI brain with and without contrast may be necessary. 3. Progression of LEFT frontal lobe cerebral edema. Measurement of edema on to day's exam is 4.4 x 5.0 x 4.8 cm. Prior measurement in similar locations 2.6 x 2.7 x 2.7 cm. 4. LEFT frontal lobe craniotomy site appears similar to 06/22/2024. There are a few small foci of air at the resection site. 5. Mild scalp edema superficial to the LEFT craniotomy. Notified Sheron De La Rosa MD at 07/11/2024 1:06 PM.
--- NOTE | 2024-07-11 12:19 | W.ED.GENADLT ---
HPI - General Adult General: Chief complaint: General Medical Stated complaint: swollen face Time Seen by Provider: 07/11/24 11:54 Source: patient Mode of arrival: ambulatory Limitations: no limitations History of Present Illness: 44-year-old male who had a history of brain tumor and had a craniotomy to have the brain tumor removed on June 03. He had this done with neurosurgery at [facility] he states he developed a wound infection he had finished doxycycline earlier last week states that starting Thursday he is having some yellow drainage from the wound with swelling and erythema denies any fevers minimal pain. He has not spoke to his neurosurgeon about this. Associated symptoms: Deny chest pain, dyspnea, headache(s), nausea, rash or vomiting Related Data Home Medications ?Medication ?Instructions ?Recorded ?Confirmed carvedilol 25 mg tablet 25 mg PO BID 02/08/24 07/11/24 diclofenac sodium 1 % topical gel 4 g topical QID PRN joint pain 02/08/24 07/11/24 (Voltaren Arthritis Pain) sertraline 100 mg tablet 150 mg PO DAILY 02/08/24 07/11/24 trazodone 100 mg tablet 200 mg PO BEDTIME 02/08/24 07/11/24 aripiprazole 10 mg tablet 10 mg PO BEDTIME 02/24/24 07/11/24 aspirin 81 mg tablet,delayed 81 mg PO DAILY 02/24/24 07/11/24 release cholecalciferol (vitamin D3) 25 25 mcg PO DAILY 02/24/24 07/11/24 mcg (1,000 unit) tablet (Vitamin D3) furosemide 40 mg tablet 40 mg PO BID 02/24/24 07/11/24 Held on 02/25/24. Instructions: Resume on 02/28/24. lidocaine 5 % topical patch 1 patch topical DAILY PRN Pain 02/24/24 07/11/24 potassium chloride 20 mEq See Rx Instructions .Route .COMPLEX 02/24/24 07/11/24 tablet,extended release(part/cryst) (Klor-Con M) oxycodone 10 mg tablet 10 mg PO Q6H PRN Pain 07/11/24 07/11/24 Previous Rx's ?Medication ?Instructions ?Recorded hydralazine 100 mg tablet 100 mg PO TID #270 tabs 07/02/22 isosorbide dinitrate 20 mg tablet 20 mg PO BID #180 tabs 07/02/22 CAM walker #1 ea 06/23/23 Allergies Allergy/AdvReac Type Severity Reaction Status Date / Time No Known Allergies Allergy Verified 07/11/24 12:06 Review of Systems Const: Denies: fever(s), chills, body aches or change in appetite ENMT: Denies: throat pain or dental pain Card: Denies: chest pain Resp: Denies: dyspnea GI: Denies: abdominal pain, nausea, vomiting or diarrhea Musc: Denies: neck pain or back pain Skin/Breast: Denies: rash Neuro: Denies: headache(s) PFSH ED PFSH: Medical History Syncope Orthostatic hypotension Hypokalemia CKD (chronic kidney disease) Hypokalemia Intravenous drug abuse Essential hypertension Family History Other CAD (coronary artery disease) Social History Smoking and tobacco/nicotine status: unknown if used tobacco/nicotine Alcohol intake: current Alcohol intake frequency: few times a month Substance/Drug Use: current Physical Exam Const: COMMON NORMALS: patient oriented x3 HENMT: OTHER: Large incisional scar to left parietal region has some slight erythema minimal drainage Eye: COMMON NORMALS: Equal, round and reactive pupils present and EOMs intact bilaterally PUPIL: Yes Equal, round and reactive pupils present Neck/C-Spine: COMMON NORMALS: full ROM and supple Chest: COMMONS NORMALS: normal inspection of the chest and normal palpation of entire chest wall Resp: COMMON NORMALS: normal respiratory effort Cardio: COMMON NORMALS: regular rate, regular rhythm and No murmurs present (Cardio) RATE: regular rate RHYTHM: regular rhythm Extremity: COMMON NORMALS: normal to inspection and full ROM Neuro: COMMON NORMALS: patient oriented x3, moves all extremities and no focal motor deficits Psych: COMMON NORMALS: mental status grossly normal, Normal thought process present and cooperative THOUGHT PROCESS: Normal thought process present Skin: COMMON NORMALS: no rashes or lesions noted and no wounds GENERAL SKIN EXAM: no rashes or lesions noted Course Vital Signs: Vital signs: Vital Signs Temperature 98.3 F 07/11/24 12:00 Pulse Rate 70 07/11/24 12:00 Respiratory Rate 20 H 07/11/24 13:47 Blood Pressure 125/92 07/11/24 13:06 Pulse Oximetry 94 07/11/24 12:00 Oxygen Delivery Me thod Room Air 07/11/24 12:00 MDM - General Adult Medical Decision Making Patient presents here with concerns of his craniotomy wound wound here is some mild erythema no signs of severe infection he is afebrile white count ESR CRP are normal did CT his head I spoke to patient's nurse urgent Karina Carmona who is reviewed his CT as well he says patient stable for discharge she is called the patient while patient was in the ER and has an appointment set up for tomorrow at 1230 he stable for discharge she is to follow-up tomorrow as scheduled. Medical Records I reviewed the patient's medical records. Lab Data I reviewed the patient's lab results. 07/11/24 12:58 07/11/24 12:[address] 07/11/24 12:15 IMPRESSION: 1. Status post recent resection of a LEFT frontal brain tumor. 2. Since 06/22/2024 there has been an increase in the amount of postoperative LEFT frontal lobe edema. With the new edema in the LEFT frontal lobe consider postoperative cerebritis or infection or ischemia. Recommend follow-up with neurosurgeon. MRI brain with and without contrast may be necessary. 3. Progression of LEFT frontal lobe cerebral edema. Measurement of edema on today's exam is 4.4 x 5.0 x 4.8 cm. Prior measurement in similar locations 2.6 x 2.7 x 2.7 cm. 4. LEFT frontal lobe craniotomy site appears similar to 06/22/2024. There are a few small foci of air at the resection site. 5. Mild scalp edema superficial to the LEFT craniotomy. Notified Sheron De La Rosa MD at 07/11/2024 1:06 PM. Laboratory Results WBC 7.54 10^3/uL (3.29-11.43) 07/11/24 12:58 RBC 4.57 10^6/uL (3.85-5.65) 07/11/24 12:58 Hgb 13.90 g/dL (11.27-16.99) 07/11/24 12:58 Hct 41.9 % (37-53) 07/11/24 12:58 MCV 91.7 fl (82-101) 07/11/24 12:58 MCH 30.4 pg (27-33) 07/11/24 12:58 MCHC 33.2 g/dL (30-55) 07/11/24 12:58 RDW 12.8 % (12.1-15.1) 07/11/24 12:58 Plt Count 299 10^3/cmm (157-399) 07/11/24 12:58 MPV 8.9 fL (7.4-10.4) 07/11/24 12:58 Neut % (Auto) 62.6 % 07/11/24 12:58 Lymph % (Auto) 26.5 % 07/11/24 12:58 [place] % (Auto) 7.8 % 07/11/24 12:58 Eos % (Auto) 2.3 % 07/11/24 12:58 Baso % (Auto) 0.7 % 07/11/24 12:58 Neut # (Auto) 4.72 10^3/uL (1.8-7.7) 07/11/24 12:58 Lymph # (Auto) 2.0 10^3/uL (0.8-4.8) 07/11/24 12:58 [place] # (Auto) 0.6 10^3/uL (0.2-0.9) 07/11/24 12:58 Eos # (Auto) 0.2 10^3/uL (0.0-0.8) 07/11/24 12:58 Baso # (Auto) 0.1 10^3/uL (0.0-0.1) 07/11/24 12:58 Nucleated RBC % (auto) 0 % 07/11/24 12:58 Nucleated RBCs # 0.0 /100WBC 07/11/24 12:58 ESR 28 mm/hr (0-10) H 07/11/24 12:58 Sodium 136 mmol/L (136-145) 07/11/24 12:58 Potassium 3.8 mmol/L (3.5-5.1) 07/11/24 12:58 Chloride 100 mmol/L (98-107) 07/11/24 12:58 Carbon Dioxide 29 mmol/L (22-29) 07/11/24 12:58 Anion Gap 10.8 (5-19) 07/11/24 12:58 BUN 13 mg/dL (6-20) 07/11/24 12:58 Creatinine 1.9 mg/dL (0.7-1.2) H 07/11/24 12:58 GFR Calculation 38.5 mL/min (90-130) L 07/11/24 12:58 Glucose 81 mg/dL (65-115) 07/11/24 12:58 Calculated Osmolality 281 mOsm/kg (285-295) L 07/11/24 12:58 Calcium 9.5 mg/dL (8.5-10.5) 07/11/24 12:58 Total Bilirubin 0.5 mg/dL (0.15-1.2) 07/11/24 12:58 AST 36 U/L (0-40) 07/11/24 12:58 ALT 36 U/L (0-41) 07/11/24 12:58 Alkaline Phosphatase 58 U/L (40-130) 07/11/24 12:58 C-Reactive Protein 6.7 mg/L (0.0-4.9) H 07/11/24 12:58 Total Protein 7.7 g/dL (6.6-8.7) 07/11/24 12:58 Albumin 3.6 g/dL (3.5-5.2) 07/11/24 12:58 Globulin 4.1 g/dL (1.3-4.6) 07/11/24 12:58 No radiology studies performed this visit Discharge Plan Discharge Patient Disposition: Home Clinical Impression: Visit for wound check Condition: Stable Prescriptions: No Action (DME) CAM walker See Rx Instructions .Route .MEDSUPPLY Qty: 1 0RF Rx Instructions: As directed hydralazine 100 mg tablet 100 mg PO TID Qty: 270 1RF isosorbide dinitrate 20 mg tablet 20 mg PO BID Qty: 180 1RF sertraline 100 mg Tablet 150 mg PO DAILY trazodone 100 mg Tablet 200 mg PO BEDTIME diclofenac sodium [Voltaren Arthritis Pain] 1 % Gel 4 g TOPICAL QID PRN (Reason: joint pain) Rx Instructions: apply to single knee, ankle, foot; for foot includes sole/toes/top of foot carvedilol 25 mg Tablet 25 mg PO BID Rx Instructions: must administer with a meal/food oxycodone 10 mg Tablet 10 mg PO Q6H PRN (Reason: Pain) aripiprazole 10 mg Tablet 10 mg PO BEDTIME aspirin 81 mg Tablet,Delayed Release (Dr/Ec) 81 mg PO DAILY lidocaine 5 % Adhesive Patch,Medicated 1 patch TOPICAL DAILY PRN (Reason: Pain) Rx Instructions: leave on most painful area for up to 12 hrs cholecalciferol (vitamin D3) [Vitamin D3] 25 mcg (1,000 unit) Tablet 25 mcg PO DAILY furosemide 40 mg tablet 40 mg PO BID potassium chloride [Klor-Con M20] 20 mEq tablet,ER particles/crystals See Rx Instructions .ROUTE .COMPLEX Rx Instructions: Take 1 tablet by mouth twice daily and take 1 tablet as needed for potassium supplementation. Discharge Orders: Discharge ED (Routine); Ordered 07/11/24 Ordered By: Sheron De La Rosa Referrals: Tawanna Nguyen MD [Primary Care Provider] - Discharge Diet: Advance as tolerated Discharge Activity: Resume usual activity Patient Instructions: Wound Care (General) Print Language: Saudi Arabian Coding Level of Care Code ED Pickler Helper for Joe Blum
[2024-07-11 13:06] VITALS: BP 125/92
[2024-07-11 13:07] LABS: Basophils # 0.1 10^3/uL (0.0-0.1); Basophils % 0.7 %; Eosinophils # 0.2 10^3/uL (0.0-0.8); Eosinophils % 2.3 %; Hematocrit 41.9 % (37-53); Lymphocytes % 26.5 %; Mean Corpuscular HGB Conc 33.2 g/dL (30-55); Mean Corpuscular Hemoglobin 30.4 pg (27-33); Mean Corpuscular Volume 91.7 fl (82-101); Mean Platelet Volume 8.9 fL (7.4-10.4); Monocytes # 0.6 10^3/uL (0.2-0.9); Monocytes % 7.8 %; Neutrophils # 4.72 10^3/uL (1.8-7.7); Neutrophils % 62.6 %; Nucleated Red Blood Cells % 0 %; Platelet Count 299 10^3/cmm (157-399); Red Blood Count 4.57 10^6/uL (3.85-5.65); Red Cell Distribution Width 12.8 % (12.1-15.1); White Blood Count 7.54 10^3/uL (3.29-11.43)
[2024-07-11 13:20] LABS: Erythrocyte Sedimentation Rate 28 mm/hr (0-10)
--- NOTE | 2024-07-11 13:31 | PC.PHAR ---
Patient was told by regular Doctor to hold Furosemide and Potassium on 07/07/24 till after testing .
[2024-07-11 13:38] LABS: Alanine Aminotransferase 36 U/L (0-41); Albumin Level 3.6 g/dL (3.5-5.2); Alkaline Phosphatase 58 U/L (40-130); Anion Gap 10.8 (5-19); Aspartate Amino Transferase 36 U/L (0-40); Blood Urea Nitrogen 13 mg/dL (6-20); C Reactive Protein 6.7 mg/L (0.0-4.9); Calcium 9.5 mg/dL (8.5-10.5); Carbon Dioxide 29 mmol/L (22-29); Chloride 100 mmol/L (98-107); Creatinine Clr Calc Pharmacy 67.9642; Globulin 4.1 g/dL (1.3-4.6); Glomerular Filtration Rate 38.5 mL/min (90-130); Glucose 81 mg/dL (65-115); Osmolality Calculated 281 mOsm/kg (285-295); Potassium 3.8 mmol/L (3.5-5.1); Sodium 136 mmol/L (136-145); Total Bilirubin 0.5 mg/dL (0.15-1.2); Total Protein 7.7 g/dL (6.6-8.7)
--- NOTE | 2024-07-11 13:38 | PC.PHAR ---
Patient states he is taking Seroquel but not sure the strength .I have faxed [facility] to verify the strength .
[2024-07-11 13:47] VITALS: RESP 20
[2024-07-11] MEDS: ondansetron 2 mg/ML SDV 2 mL 4 MG IVP (13:47)
[2024-07-11] MEDS: morphine 4 mg/mL SDV 1 mL IVP (13:47)
[2024-07-11 14:26] VITALS: BP 124/92; PULSE 70; RESP 20; O2SAT 93
== END 2024-07-11 14:27 | disposition home or self-care (01) ==
PROVIDERS: Emergency Provider Emergency Medicine; PCP Family Medicine
DX: Z48.01 Encounter for change or removal of surgical wound dressing (principal); Z98.890 Other specified postprocedural states; Z79.82 Long term (current) use of aspirin; I12.9 Hypertensive chronic kidney disease with stage 1 through stage 4 chronic kidney disease, or unspecified chronic kidney disease; N18.9 Chronic kidney disease, unspecified
CPT/HCPCS: 36415; 70450; 80053; 85025; 85651; 86140; 96374; 96375; 99285; J2270; J2405

== ENCOUNTER 2024-08-26 12:29 | Observation (INO) | payer OTHER, SELFPAY ==
[2024-08-26 12:31] VITALS: BP 129/96; PULSE 86; RESP 18; TEMP 36.6; O2SAT 97; BMI 39.9
--- NOTE | 2024-08-26 13:04 | CT_ITS ---
WS: [id number] CT HEAD NONCONTRAST HISTORY: Encephalopathy, altered mental status TECHNIQUE: Contiguous axial imaging performed through the brain. Bone and soft tissue windows. Sagittal and coronal reformats reviewed. All CT scans at [facility] use at least one of these dose optimization techniques: automated exposure control; mA and/or kV adjustment per patient size (includes targeted exams where dose is matched to clinical indication); or iterative reconstruction. DLP: 1145.03 mGy.cm COMPARISON: 07/11/2024 No acute intracranial hemorrhage, midline shift or mass effect. LEFT frontal tumor resection site is reidentified. Improvement in the amount of edema and extra-axial fluid and air at the resection site since 07/11/2024 There is a focal area which is more rounded at the resection site measuring 1.4 x 1.3 cm. This may be part of the resection site but due to its appearance MRI with contrast would provide additional information regarding recurrence. Posterior fossa is negative. Ventricles: Normal size with no hydrocephalus. Paranasal sinuses: As visualized are clear. Mastoid air cells: Well pneumatized. Calvarium and scalp: LEFT frontal craniotomy site. Position of the craniotomy and clips similar to the study of 07/11/2024. CT/CT head wo con* [id number] IMPRESSION: 1. No acute intracranial hemorrhage or edema. 2. Improvement in the postoperative resection site with less infiltrating maverick a. 3. New focal area of decreased attenuation at the resection site measuring 1.4 x 1.3 cm. This may be normal postoperative residual. MRI with contrast should be obtained to exclude recurrence. This can be done on an outpatient basis. 4. LEFT frontal craniotomy site is stable.
--- NOTE | 2024-08-26 13:04 | XR_ITS ---
WS: [id number] Portable AP upright chest, 08/26/2024 Clinical Data: Weakness Comparison: Portable chest, 06/06/2022 Findings: No nodules, masses or effusions are seen. The heart is normal. The pulmonary vascularity is not increased. No pneumonia or pneumothorax is seen. XR/XR chest 1V portable [id number] Impression: Negative chest.
--- NOTE | 2024-08-26 13:06 | W.ED.FALL ---
HPI - Fall General: Chief Complaint: Fall Stated Complaint: multiple times passing out (1hr ago) Time Seen by Provider: 08/26/24 12:58 History of Present Illness: 44-year-old man with a history of seizure disorder, chronic kidney disease, hypertension, history of IV drug use, history of craniotomy for brain tumor who presents the emergency room with multiple falls. He is having right foot pain and thinks he broke his foot. He has history of seizures and says he is had multiple seizures recently and this is an increase than what he was having. says he just seems more confused. She says his lips have been turning blue. He has been forgetting time. Currently has no altered mental status. No focal motor deficits. No known fevers. Vital signs are normal. Related Data Home Medications ?Medication ?Instructions ?Recorded ?Confirmed carvedilol 25 mg tablet 25 mg PO BID 02/08/24 08/26/24 sertraline 100 mg tablet 150 mg PO DAILY 02/08/24 08/26/24 trazodone 100 mg tablet 200 mg PO BEDTIME 02/08/24 08/26/24 aripiprazole 10 mg tablet 10 mg PO BEDTIME 02/24/24 08/26/24 aspirin 81 mg tablet,delayed 81 mg PO DAILY 02/24/24 08/26/24 release cholecalciferol (vitamin D3) 25 25 mcg PO DAILY 02/24/24 08/26/24 mcg (1,000 unit) tablet (Vitamin D3) levothyroxine 25 mcg tablet 25 mcg PO QAM 07/12/24 08/26/24 quetiapine 200 mg tablet 100 mg PO DAILY 07/12/24 08/26/24 tamsulosin 0.4 mg capsule 0.4 mg PO DAILY 08/26/24 08/26/24 Previous Rx's ?Medication ?Instructions ?Recorded hydralazine 100 mg tablet 100 mg PO TID #270 tabs 07/02/22 isosorbide dinitrate 20 mg tablet 20 mg PO BID #180 tabs 07/02/22 Allergies Allergy/AdvReac Type Severity Reaction Status Date / Time No Known Allergies Allergy Verified 07/11/24 12:06 Review of Systems Narrative: Constitutional symptoms: Negative except as documented in HPI. Skin symptoms: Negative except as documented in HPI. Eye symptoms: Negative except as documented in HPI. ENMT symptoms: Negative except as documented in HPI. Respiratory symptoms: Negative except as documented in HPI. Cardiovascular symptoms: Negative except as documented in HPI. Gastrointestinal symptoms: Negative except as documented in HPI. Genitourinary symptoms: Negative except as documented in HPI. Musculoskeletal symptoms: Negative except as documented in HPI. Neurologic symptoms: Negative except as documented in HPI. Psychiatric symptoms: Negative except as documented in HPI. Endocrine symptoms: Negative except as documented in HPI. PFSH ED PFSH: Medical History Syncope Orthostatic hypotension Hypokalemia CKD (chronic kidney disease) Hypokalemia Intravenous drug abuse Essential hypertension Family History Other CAD (coronary artery disease) Social History Smoking and tobacco/nicotine status: unknown if used tobacco/nicotine Alcohol intake: current Alcohol intake frequency: few times a month Substance/Drug Use: current Physical Exam Narrative: EXAM NARRATIVE: General: Alert, no acute distress. Skin: Warm, dry. Head: Normocephalic, atraumatic. Neck: Supple, trachea midline. Eye: Extraocular movements are intact. Ears, nose, mouth and throat: mucosa moist. Cardiovascular: Regular, Normal peripheral perfusion. Respiratory: Lungs are clear to auscultation, respirations are non-labored, breath sounds are equal, Symmetrical chest wall expansion. Gastrointestinal: Soft, Nontender, Non distended Musculoskeletal: Normal ROM, some swelling right lateral distal foot. Neurological: Alert and oriented, No focal neurological deficit observed. Psychiatric: Cooperative, appropriate mood & affect. Course Vital Signs: Vital signs: Vital Signs Temperature 97.8 F 08/26/24 12:31 Pulse Rate 86 08/26/24 12:31 Respiratory Rate 18 08/26/24 12:31 Blood Pressure 129/96 08/26/24 12:31 Pulse Oximetry 97 08/26/24 12:31 Oxygen Delivery Me thod Room Air 08/26/24 12:31 MDM - Fall Medical Decision Making Medical decision making: Differential diagnosis including but not limited to and based on the above HPI, review of systems and physical exam: In this patient with altered mental status: Stroke. Hypoglycemia. Metabolic encephalopathy. Infections such as pneumonia, urinary tract infection, Covid-19, Influenza. Electrolyte abnormalities such as hypernatremia. Renal failure / uremia. Hepatic encephalopathy. Hypoxemia. Hypercapnic respiratory failure. Psychosis. Drug or alcohol intoxication. Medication overdose. Orders placed to evaluate differential diagnosis based on the above differential, HPI and physical exam EKG: Time 1350. Rate 80. Normal sinus rhythm, No ST-T changes, no ectopy, normal IN & QRS intervals, This was reviewed and interpreted by myself the ER physician at 1355. Lab Review: Laboratory results were reviewed and interpreted by myself the emergency room physician. No leukocytosis. Hemoglobin is mildly elevated at 18.4. BUN and creatinine are above his baseline at 36 and 2.7. His creatinine is normally around 1.8-2. His potassium is low at 2.9. Calcium is high at 10. These would all indicate some dehydration. Chest x-ray: No acute process. No infiltrate. No pneumothorax. This was reviewed and interpreted by myself the emergency room physician. I also reviewed the radiology report. CT of the head: No intracranial hemorrhage or edema. Improvement in infiltrating edema around postsurgical site. There is a new focal area of decreased attenuation that radiology recommends an outpatient MRI to evaluate. This was reviewed and interpreted by myself the emergency room physician. I also reviewed the radiology report. X-ray of the right foot: Oblique fracture at the midshaft of the fifth right metatarsal. This was reviewed and interpreted by myself the emergency room physician. I also reviewed the radiology report. I reviewed the patient's medical record. Reexamination: Patient has remained stable. No altered mental status. No focal motor deficits. He is had no syncope or seizures while he is been here. Consultation: I spoke with Dr. Candelario who is on-call for podiatry. He recommends posterior splint and nonweightbearing. Consultation: I spoke with Dr. West who is on-call for the hospitalist service who agrees to admission to observation. Assessment and plan: Acute on chronic renal failure Hypokalemia Hypercalcemia Dehydration Multiple falls Right fifth metatarsal fracture ?40 mill equivalents IV potassium. 40 mill equivalents p.o. potassium. IV magnesium. ?Splint placed by nursing. I evaluated this personally. Neurovascular intact. -I discussed the patient with the hospitalist on-call who is admitting the patient. - Discussed findings and plan with patient. Answered any questions. - All laboratory values were reviewed and interpreted personally by myself, the ER physician - All imaging was reviewed and interpreted personally by myself, the ER physician. - Evaluation and treatment of this problem were appropriate in the emergency setting Lab Data 08/26/24 13:20 08/26/24 13:20 Radiology Impressions Chest X-Ray 08/26/24 13:04 Impression: Negative chest. Head CT 08/26/24 13:04 IMPRESSION: 1. No acute intracranial hemorrhage or edema. 2. Improvement in the postoperative resection site with less infiltrating edema. 3. New focal area of decreased attenuation at the resection site measuring 1.4 x 1.3 cm. This may be normal postoperative residual. MRI with contrast should be obtained to exclude recurrence. This can be done on an outpatient basis. 4. LEFT frontal craniotomy site is stable. Foot X-Ray 08/26/24 14:21 Impression: Oblique fracture of the midshaft of the right fifth metatarsal. Laboratory Results WBC 10.82 10^3/uL (3.29-11.43) 08/26/24 13:20 RBC 6.30 10^6/uL (3.85-5.65) H 08/26/24 13:20 Hgb 18.40 g/dL (11.27-16.99) H 08/26/24 13:20 Hct 52.3 % (37-53) 08/26/24 13:20 MCV 83.0 fl (82-101) 08/26/24 13:20 MCH 29.2 pg (27-33) 08/26/24 13:20 MCHC 35.2 g/dL (30-55) 08/26/24 13:20 RDW 12.6 % (12.1-15.1) 08/26/24 13:20 Plt Count 342 10^3/cmm (157-399) 08/26/24 13:20 MPV 8.9 fL (7.4-10.4) 08/26/24 13:20 Neut % (Auto) 58.9 % 08/26/24 13:20 Lymph % (Auto) 29.1 % 08/26/24 13:20 Hall % (Auto) 8.2 % 08/26/24 13:20 Eos % (Auto) 2.8 % 08/26/24 13:20 Baso % (Auto) 0.6 % 08/26/24 13:20 Neut # (Auto) 6.38 10^3/uL (1.8-7.7) 08/26/24 13:20 Lymph # (Auto) 3.2 10^3/uL (0.8-4.8) 08/26/24 13:20 Hall # (Auto) 0.9 10^3/uL (0.2-0.9) 08/26/24 13:20 Eos # (Auto) 0.3 10^3/uL (0.0-0.8) 08/26/24 13:20 Baso # (Auto) 0.1 10^3/uL (0.0-0.1) 08/26/24 13:20 Nucleated RBC % (auto) 0 % 08/26/24 13:20 Nucleated RBCs # 0.0 /100WBC 08/26/24 13:20 Sodium 137 mmol/L (136-145) 08/26/24 13:20 Potassium 2.9 mmol/L (3.5-5.1) L 08/26/24 13:20 Chloride 89 mmol/L (98-107) L 08/26/24 13:20 Carbon Dioxide 31 mmol/L (22-29) H 08/26/24 13:20 Anion Gap 19.9 (5-19) H 08/26/24 13:20 BUN 36 mg/dL (6-20) H 08/26/24 13:20 Creatinine 2.7 mg/dL (0.7-1.2) H 08/26/24 13:20 GFR Calculation 25.7 mL/min (90-130) L 08/26/24 13:20 Glucose 91 mg/dL (65-115) 08/26/24 13:20 Calculated Osmolality 292 mOsm/kg (285-295) 08/26/24 13:20 Lactic Acid 1.6 mmol/L (0.5-2.2) 08/26/24 13:18 Calcium 12.1 mg/dL (8.5-10.5) H 08/26/24 13:20 Total Bilirubin 0.7 mg/dL (0.15-1.2) 08/26/24 13:20 AST 89 U/L (0-40) H 08/26/24 13:20 ALT 62 U/L (0-41) H 08/26/24 13:20 Alkaline Phosphatase 90 U/L (40-130) 08/26/24 13:20 Troponin T Baseline 34 ng/L (0-15) H 08/26/24 13:20 Total Protein 10.0 g/dL (6.6-8.7) H 08/26/24 13:20 Albumin 5.1 g/dL (3.5-5.2) 08/26/24 13:20 Globulin 4.9 g/dL (1.3-4.6) H 08/26/24 13:20 Salicylates < 0.3 mg/dL (3-10) L 08/26/24 13:20 Acetaminophen < 5.0 ug/mL (10-30) L 08/26/24 13:20 Ethyl Alcohol < 10 mg/dL (0-10) 08/26/24 13:20 Influenza A (PCR) Negative (Negative) 08/26/24 13:37 Influenza Type B (PCR) Negative (Negative) 08/26/24 13:37 RSV (PCR) Negative (Negative) 08/26/24 13:37 SARS-CoV-2 (PCR) Negative (Negative) 08/26/24 13:37 All radiology interpretation(s) finalized by discharge Discharge Plan Discharge Patient Disposition: Placed in Observation Clinical Impression: Multiple falls, Acute on chronic renal failure, Hypercalcemia, Hypokalemia, Dehydration, Closed fracture of fifth metatarsal bone Coding Level of Care Code ED Designer And Patternmaker for Joe Blum
[2024-08-26 13:35] LABS: Basophils # 0.1 10^3/uL (0.0-0.1); Basophils % 0.6 %; Eosinophils # 0.3 10^3/uL (0.0-0.8); Eosinophils % 2.8 %; Hematocrit 52.3 % (37-53); Lymphocytes # 3.2 10^3/uL (0.8-4.8); Lymphocytes % 29.1 %; Mean Corpuscular HGB Conc 35.2 g/dL (30-55); Mean Corpuscular Hemoglobin 29.2 pg (27-33); Mean Platelet Volume 8.9 fL (7.4-10.4); Monocytes # 0.9 10^3/uL (0.2-0.9); Monocytes % 8.2 %; Neutrophils # 6.38 10^3/uL (1.8-7.7); Neutrophils % 58.9 %; Nucleated Red Blood Cells % 0 %; Platelet Count 342 10^3/cmm (157-399); Red Cell Distribution Width 12.6 % (12.1-15.1); White Blood Count 10.82 10^3/uL (3.29-11.43)
[2024-08-26 13:49] LABS: Lactic Sepsis W/Reflex 1.6 mmol/L (0.5-2.2)
[2024-08-26 13:50] LABS: Alanine Aminotransferase 62 U/L (0-41); Albumin Level 5.1 g/dL (3.5-5.2); Alkaline Phosphatase 90 U/L (40-130); Anion Gap 19.9 (5-19); Aspartate Amino Transferase 89 U/L (0-40); Blood Urea Nitrogen 36 mg/dL (6-20); Calcium 12.1 mg/dL (8.5-10.5); Carbon Dioxide 31 mmol/L (22-29); Chloride 89 mmol/L (98-107); Creatinine Clr Calc Pharmacy 46.0533; Globulin 4.9 g/dL (1.3-4.6); Glomerular Filtration Rate 25.7 mL/min (90-130); Glucose 91 mg/dL (65-115); Osmolality Calculated 292 mOsm/kg (285-295); Sodium 137 mmol/L (136-145); Total Bilirubin 0.7 mg/dL (0.15-1.2); Troponin(5th) Baseline 34 ng/L (0-15)
--- NOTE | 2024-08-26 13:50 | ECG_ITS ---
[facility] Test Date: 2024-08-26 Pat Name: Doug Frank Department: Room: Gender: Male Herb Doctor: : 1980 Requested By: Telma Plummer Order Number: [id number] Mar MD: Ac Johansen M.D. Measurements Intervals [place] Rate: 80 P: 49 CT: 181 QRS: 61 QRSD: 129 T: 89 QT: 413 QTc: 479 Interpretive Statements SINUS RHYTHM MODERATE INTRAVENTRICULAR CONDUCTION DELAY [110+ ms QRS DURATION] MODERATE ST DEPRESSION [0.05+ mV ST DEPRESSION] Compared to ECG 06/22/2024 02:29:49 Left-axis deviation no longer present ST (T wave) deviation still present Electronically Signed On 08-27-2024 13:15:37 CDT by Ac Johansen M.D. [id number]
[2024-08-26 13:55] LABS: Acetaminophen < 5.0 ug/mL (10-30); Alcohol Level < 10 mg/dL (0-10); Salicylate < 0.3 mg/dL (3-10)
[2024-08-26 13:57] LABS: Potassium 2.9 mmol/L (3.5-5.1)
--- NOTE | 2024-08-26 14:21 | XR_ITS ---
WS: [id number] Right foot, 3 views, 08/26/2024 Clinical Data: foot pain Comparison: None. Findings: There is an oblique fracture of the midshaft of the right fifth metatarsal. There are no other fractures. The joint spaces are normal. The soft tissues are not remarkable. XR/XR foot RT min 3V* [id number] Impression: Oblique fracture of the midshaft of the right fifth metatarsal.
[2024-08-26 14:24] LABS: Influenza A NEGATIVE (Negative); Influenza B NEGATIVE (Negative); Respiratory Syncytial Virus Ce NEGATIVE (Negative); SARS-CoV-2 PCR NEGATIVE (Negative)
--- NOTE | 2024-08-26 14:50 | ECG_ITS ---
[facility] Date: 2024-08-26 Pat Name: Doug Frank Department: Room: Gender: Male Health Informatics Specialist: : 1980 Requested By: Telma Plummer Order Number: [id number] Mar MD: Ac Johansen M.D. Measurements Intervals [place] Rate: 79 P: 48 VT: 174 QRS: 52 QRSD: 123 T: 99 QT: 409 QTc: 471 Interpretive Statements SINUS RHYTHM MODERATE INTRAVENTRICULAR CONDUCTION DELAY [110+ ms QRS DURATION] MODERATE ST DEPRESSION [0.05+ mV ST DEPRESSION] Compared to ECG 08/26/2024 13:50:27 No significant changes Electronically Signed On 08-27-2024 13:36:33 CDT by Ac Johansen M.D. [id number]
[2024-08-26 15:18] LABS: Bilirubin Urine Negative (Negative); Blood Urine Negative (Negative); Glucose Urine UA Negative (Normal); Ketones Urine Negative (Negative); Leukocyte Esterase Urine Negative (Negative); Nitrate Urine Negative (Negative); Protein Urine 1+ (Negative); Urine Appearance Clear (CLEAR); Urine Color Yellow (Yellow); Urobilinogen Urine 0.2 mg/dL (Negative)
[2024-08-26 15:23] LABS: Bacteria Urine None Seen /hpf; Hyaline Casts Urine 7.01 /lpf; RBC Urine 0-2 /hpf (0-2); Squamous Epithelial Cell Urine 0-5 /hpf (0-5); WBC Urine 0-5 /hpf (0-5)
[2024-08-26 15:25] LABS: Amphetamines Screen Urine Negative (Negative); Barbiturates Screen Urine Negative (Negative); Benzodiazepines Screen Urine Negative (Negative); Cocaine Screen Urine Negative (Negative); Opiate Screen Urine Negative (Negative); PCP Screen Urine Negative (Negative); THC Screen Urine Negative (Negative)
[2024-08-26] MEDS: potassium chloride ER 20 mEq Tablet 40 MEQ PO (15:31)
[2024-08-26] MEDS: levETIRAcetam 1,000 MG/100 ML PREMIX 400 MG IV (15:32)
[2024-08-26] MEDS: sodium chloride 0.9% 1,000 ML 999 ML IV (15:32)
[2024-08-26 15:33] VITALS: BP 123/98; PULSE 78; O2SAT 96
[2024-08-26 15:55] LABS: Troponin 5 2HR 30.34 ng/L (0-15)
[2024-08-26 15:56] LABS: Troponin 5 2HR Delta -3.66 ABS# (0-10)
--- NOTE | 2024-08-26 16:11 | P.HP_ITS ---
Providers/Chief Complaint 2 Primary Care Provider: Tawanna Nguyen MD Chief Complaint: multiple times passing out (1hr ago) History of Present Illness Doug Frank is a 44 year old male with history of nonischemic cardiomyopathy, reduced ejection fraction CHF, IV drug abuse, craniotomy for brain tumor in May 2023, noncompliance, hypertension, polypharmacy presented with chief complaint of syncopal events. Patient is orthostatic positive at home as per the who is at bedside. As per the patient he was walking to the bathroom, urinated and then had a syncopal episode. He does not remember the duration of LOC. He denied any complaint of chest pain, palpitations, dizziness, blurry vision, nausea/vomiting prior to the episode. He denies any complaint of tongue bite, urinary or bowel incontinence following the episode. He has history of similar episodes in the past. He had 2 syncopal episode in the last 12 hours, the second 1 he fell crumbling on his foot and noted to have right lateral foot swelling and pain. Denies any history of recent travel or sick contact. Denies any history of recent fever, cough, nausea/vomiting/diarrhea, chest pain, dizziness, palpitations. Review of Systems 2 General: Reports: 10 or more systems reviewed and unremarkable except in HPI and below Medications/Allergies Home Medications ?Medication ?Instructions ?Recorded ?Confirmed ?Last Taken ?Type hydralazine 100 mg tablet 100 mg PO TID #270 tabs 06/1208/26/24 08/26/24 Rx isosorbide dinitrate 20 mg tablet 20 mg PO BID #180 ta bs 07/02/22 08/26/24 08/26/24 Rx carvedilol 25 mg tablet 25 mg PO BID 02/08/2408/26/24 History sertraline 100 mg tablet 150 mg PO DAILY 02/08/2408/26/24 History trazodone 100 mg tablet 200 mg PO BEDTIME 02/08/24 0 08/26/24 08/25/24 History aripiprazole 10 mg tablet 10 mg PO BEDTIME 02/24/2408/25/24 History aspirin 81 mg tablet,delayed 81 mg PO DAILY 02/24/24 0 08/26/24 08/26/24 History release cholecalciferol (vitamin D3) 25 25 mcg PO DAILY 08/26/24 08/26/24 History mcg (1,000 unit) tablet (Vitamin D3) levothyroxine 25 mcg tablet 25 mcg PO QAM 07/12/2408/26/24 History quetiapine 200 mg tablet 100 mg PO DAILY 07/12/2408/26/24 History tamsulosin 0.4 mg capsule 0.4 mg PO DAILY 08/26/2408/25/24 History Allergies Allergy/AdvReac Type Severity Reaction Status Date / Time No Known Allergies Allergy Verified 07/11/24 12:06 PFSH Acute 2 PFSH: Medical History (Updated 08/26/24 @ 16:19 by Nona West MD) Syncope Orthostatic hypotension Hypokalemia CKD (chronic kidney disease) Hypokalemia Intravenous drug abuse Essential hypertension Family History Other CAD (coronary artery disease) Social History Smoking and tobacco/nicotine status: unknown if used tobacco/nicotine Alcohol intake: current Alcohol intake frequency: few times a month Substance/Drug Use: current Vitals/I&O/Wt Last Vital Signs Temp 97.8 F 08/26/24 12:31 Pulse 78 08/26/24 15:33 Resp 18 08/26/24 12:31 BP 123/98 08/26/24 15:33 Pulse Ox 96 08/26/24 15:33 O2 Del Method Room Air 08/26/24 15:33 Weight last 48 hrs Weight 126.099 kg Physical Exam 2 Narrative: He is alert awake oriented x 3, not in acute distress, right frontal suture smith seen Chest clear to auscultation bilaterally Cardiovascular normal heart sounds no murmurs Abdomen soft nontender nondistended normal bowel sounds Extremities shows right lateral and dorsal foot swollen and tender to touch. No edema noted bilateral lower extremities Data 08/26/24 13:20 08/26/24 13:20 Micro: Microbiology 08/26/24 13:18 Blood Culture - Preliminary Blood SPECIMEN COLLECTED 08/26/24 13:20 Blood Culture - Preliminary Blood SPECIMEN COLLECTED A&P Assessment and plan (1) Syncope: (2) Closed fracture of fifth metatarsal bone: (3) Dehydration: (4) Hypokalemia: (5) Hypercalcemia: (6) Acute on chronic renal failure: (7) Multiple falls: (8) Congestive heart failure: Plan Doug Frank is a 44 year old male with history of nonischemic cardiomyopathy, reduced ejection fraction CHF, IV drug abuse, Hep C, craniotomy for brain tumor in May 2023, noncompliance, hypertension, polypharmacy presented with chief complaint of syncopal events. Found to have a hemoglobin of 18.4, potassium 2.9, anion gap 19.9, creatinine 2.7, baseline is 1.9, calcium 12.1, mildly elevated LFTs couple troponins 34, 30 UA negative, U tox negative, respiratory panel negative Right foot x-ray showed-Oblique fracture of the midshaft of the right fifth metatarsal. CTHead IMPRESSION: 1. No acute intracranial hemorrhage or edema. 2. Improvement in the postoperative resection site with less infiltrating edema. 3. New focal area of decreased attenuation at the resection site measuring 1.4 x 1.3 cm. This may be normal postoperative residual. MRI with contrast should be obtained to exclude recurrence. This can be done on an outpatient basis. 4. LEFT frontal craniotomy site is stable. Chest x-ray negative for acute findings ECHO 03/03 CONCLUSIONS LV systolic function is normal with EF of 60-65% Moderate to severe left ventricular hypertrophy Trace mitral regurgitation Mild tricuspid regurgitation Mild pulmonic regurgitation #Syncope-likely secondary to orthostatic hypotension, hypokalemia, dehydration Received 1 L normal saline bolus in the ED Continue IV normal saline at 125 cc/h Telemetry monitoring Fall precautions Also received p.o. potassium 40 mEq and K rider in the ED. recheck labs in a.m. Was loaded with 1 g Keppra in the ED for questionable seizures. Syncope less likely seizure induced Will hold DYED RAW STOCK BLOWER FEEDER aripiprazole, trazodone and sertraline. He would need outpatient EEG and Holter monitor to rule out seizures and arrhythmias. #Hypercalcemia, elevated hemoglobin-likely secondary to dehydration Continue IV fluids as above #Acute on chronic renal failure-likely secondary to dehydration Continue IV fluids as above Right 5th metatarsal fracture- splinting pain control with po norco 1 tab q4h prn. PT eval. #History of nonischemic cardiomyopathy-no evidence of fluid overload. Continue DYED RAW STOCK BLOWER FEEDER aspirin, Imdur and coreg #Hypothyroidism-continue DYED RAW STOCK BLOWER FEEDER levothyroxine #BPH-continue DYED RAW STOCK BLOWER FEEDER Flomax #Hypertension-blood pressure controlled Will hold DYED RAW STOCK BLOWER FEEDER hydralazine GI PPx with iv pepcid DVT prophylaxis with SCD CODE STATUS discussed with patient and his , he is full code for now PDMP PDMP Reviewed: Not Reviewed Attestations 2 Medical Necessity Statement*: He needs continued hospitalization not crossing 2 midnights for management of syncope, hypokalemia, dehydration with IV fluids and supportive care. Time Spent in Patient Care: 45minutes Coding Level of Care Code Acute Code for Chg Fwd Diagnoses Syncope R55 Closed fracture of fifth metatarsal bone S92.353A Dehydration E86.0 Hypokalemia E87.6 Hypercalcemia E83.52 Acute on chronic renal failure N17.9; N18.9 Multiple falls R29.6 Congestive heart failure I50.9 Time Spent (min) 45
[2024-08-26] MEDS: magnesium sulfate premix 2 GM/50 ML PIGGYBACK IV (16:35)
[2024-08-26 16:49] VITALS: BP 124/99; PULSE 72; O2SAT 94
[2024-08-26] MEDS: HYDROmorphone 0.5 MG/0.5 ML INJ IVP (17:23)
[2024-08-26] MEDS: isosorbide dinitrate 20 mg Tablet PO (17:27)
[2024-08-26] MEDS: carvedilol 25 mg Tablet PO (17:27)
[2024-08-26] MEDS: famotidine 20 mg/2 mL INJ IVP (17:27)
[2024-08-26] MEDS: sodium chloride 0.9% 1,000 ML 125 ML IV (17:28)
[2024-08-26 17:31] VITALS: BP 134/94; PULSE 75; RESP 18; TEMP 36.4; O2SAT 96
--- NOTE | 2024-08-26 19:05 | ECG_ITS ---
[facility] Date: 2024-08-26 Pat Name: Doug Frank Department: Room: 253 Gender: Male Certified Medical Coder: : 1980 Requested By: Telma Plummer Order Number: [id number] Mar MD: Ac Johansen M.D. Measurements Intervals [place] Rate: 68 P: 57 TN: 204 QRS: 118 QRSD: 119 T: 73 QT: 416 QTc: 443 Interpretive Statements SINUS RHYTHM POSSIBLE RIGHT VENTRICULAR HYPERTROPHY [SOME/ALL OF: PROMINENT R IN V1, LATE TRANSITION, RAD, BRENT, SSS] NONSPECIFIC ST & T-WAVE ABNORMALITY Compared to ECG 08/26/2024 14:50:09 T-wave abnormality now present Intraventricular conduction delay no longer present ST (T wave) deviation no longer present Electronically Signed On 08-27-2024 13:28:44 CDT by Ac Johansen M.D. [email or web address] [id number]
[2024-08-26 19:29] VITALS: BP 133/74; PULSE 73; RESP 18; TEMP 36.7; O2SAT 94
[2024-08-26] MEDS: HYDROcodone-acetaminophen 5-325 mg Tablet 1 TAB PO (20:44)
[2024-08-26 21:08] VITALS: PULSE 73
[2024-08-27] VITALS (9 sets, daily range): BP systolic 113–152; BP diastolic 75–89; PULSE 59–66; RESP 16–18; TEMP 36.3–36.7; O2SAT 92–96
[2024-08-27] MEDS: HYDROcodone-acetaminophen 5-325 mg Tablet 1 TAB PO ×5 (00:26→20:36)
[2024-08-27] MEDS: sodium chloride 0.9% 1,000 ML 125 ML IV ×3 (00:26→17:29)
[2024-08-27] MEDS: famotidine 20 mg/2 mL INJ IVP ×2 (05:03→16:37)
[2024-08-27] MEDS: levothyroxine 25 mcg Tablet PO (05:03)
[2024-08-27 06:07] LABS: Blood Urea Nitrogen 35 mg/dL (6-20); Calcium 10.2 mg/dL (8.5-10.5); Carbon Dioxide 26 mmol/L (22-29); Chloride 96 mmol/L (98-107); Creatinine Clr Calc Pharmacy 52.6078; Glomerular Filtration Rate 29.4 mL/min (90-130); Glucose 124 mg/dL (65-115); Magnesium 2.5 mg/dL (1.7-2.3); Osmolality Calculated 291 mOsm/kg (285-295); Sodium 136 mmol/L (136-145); Thyroid Stimulating Hormone 3.46 uIU/mL (0.27-4.20)
[2024-08-27 06:10] LABS: Anion Gap 16.2 (5-19)
[2024-08-27 06:12] LABS: Potassium 2.2 mmol/L (3.5-5.1)
[2024-08-27] MEDS: lidocaine 1% 5 ML in potassium chloride premix 100 ML 52.5 ML IV (06:31)
[2024-08-27] MEDS: potassium chloride ER 20 mEq Tablet 40 MEQ PO ×5 (06:31→23:55)
[2024-08-27] MEDS: carvedilol 25 mg Tablet PO ×2 (08:31→17:30)
[2024-08-27] MEDS: aspirin 81 mg EC Tablet PO (08:31)
[2024-08-27] MEDS: tamsulosin 0.4 mg Capsule PO (08:32)
[2024-08-27] MEDS: isosorbide dinitrate 20 mg Tablet PO ×2 (08:32→17:30)
--- NOTE | 2024-08-27 11:48 | PC.CHAP ---
Pastoral Care Encounter/Spiritual Assessment Type of Contact [] Declined weighmaster lead visit [] Patient/Family/Request visit [] Outpatient visit [] Follow-up visit [] Physician referral [] Code/Alert [] Routine visit [] Staff referral [] Actively dying [] Patient sleeping [] Family support [] [] Out of room [] Palliative care [] [x] Receiving care in room [] Pre-surgical visit [] Trauma [] Long length of stay [] ICU visit [] Other: Relational/Emotional Strength [] Patient feels connected with others/family/visitors/staff [] Distress [] Loneliness/isolation [] Abandonment Spirituality of Patient [] Person of Neris [] Attends Pentecostalism of their Neris [] Believes in Prayer [] Reads Bible or Confucianism materials [] There are Spiritual issues to be addressed Moisture Machine Tender Interventions [] Prayer [] Active listening [] Non-anxious presence [] Spiritual/emotional support [] Crisis/trauma care [] Spiritual counseling [] Bereavement support [] Provided bereavement packet [] Provided Bible/devotional materials [] Provided toy/stuffed animal, coloring book to patient or family member [] Provided Communion [] Anointing/Liberty [] Salvation [] Completed spiritual assessment [] Other: Impact on Illness or Injury [] Angry [] Fearful [] Anxious [] Often cries [] Exhaustion [] Unable to work [] Unable to attend sikh [] Unable to walk/stand [] Unable to read [] Unable to drive [] Unable to eat/drink [] Unable to sleep [] Unable to be with family [] Patient intubated [] Other: Summary Time spent with patient
--- NOTE | 2024-08-27 13:26 | P.PN_ITS ---
Subjective 2 Medications: Reviewed: Yes Vitals/I&O/Wt Last Vital Signs Temp 97.4 F L 08/27/24 11:30 Pulse 60 08/27/24 11:30 Resp 18 08/27/24 11:30 BP 130/81 08/27/24 11:30 Pulse Ox 94 08/27/24 11:30 O2 Del Method Room Air 08/27/24 11:30 08/26/24 08/27/24 08/27/24 22:59 06:59 14:59 Intake Total 1386 / 1386 870.833 / 2256.833 2064 Output Total 350 / 350 350 / 700 400 / 400 Balance 1036 / 1036 520.833 / 7444.066 0334 / 1665 Weight last 48 hrs Weight 131.134 kg Weight 129.727 kg Weight 126.099 kg Physical Exam 2 Narrative: He is alert awake oriented x 3, not in acute distress, right frontal suture smith seen Chest clear to auscultation bilaterally Cardiovascular normal heart sounds no murmurs Abdomen soft nontender nondistended normal bowel sounds Extremities shows right lateral and dorsal foot swollen and tender to touch. No edema noted bilateral lower extremities Data 08/26/24 13:20 08/27/24 04:59 Micro: Microbiology 08/26/24 13:18 Blood Culture - Preliminary Blood NEGATIVE TO DATE 08/26/24 13:20 Blood Culture - Preliminary Blood NEGATIVE TO DATE A&P Assessment and plan (1) Syncope: (2) Closed fracture of fifth metatarsal bone: (3) Dehydration: (4) Hypokalemia: (5) Hypercalcemia: (6) Acute on chronic renal failure: (7) Multiple falls: (8) Congestive heart failure: Plan Doug Frank is a 44 year old male with history of nonischemic cardiomyopathy, reduced ejection fraction CHF, IV drug abuse, Hep C, craniotomy for brain tumor in May 2023, noncompliance, hypertension, polypharmacy presented with chief complaint of syncopal events. Found to have a hemoglobin of 18.4, potassium 2.9, anion gap 19.9, creatinine 2.7, baseline is 1.9, calcium 12.1, mildly elevated LFTs couple troponins 34, 30 UA negative, U tox negative, respiratory panel negative Right foot x-ray showed-Oblique fracture of the midshaft of the right fifth metatarsal. CTHead IMPRESSION: 1. No acute intracranial hemorrhage or edema. 2. Improvement in the postoperative resection site with less infiltrating edema. 3. New focal area of decreased attenuation at the resection site measuring 1.4 x 1.3 cm. This may be normal postoperative residual. MRI with contrast should be obtained to exclude recurrence. This can be done on an outpatient basis. 4. LEFT frontal craniotomy site is stable. Chest x-ray negative for acute findings ECHO 03/03 CONCLUSIONS LV systolic function is normal with EF of 60-65% Moderate to severe left ventricular hypertrophy Trace mitral regurgitation Mild tricuspid regurgitation Mild pulmonic regurgitation #Syncope-likely secondary to orthostatic hypotension, hypokalemia, dehydration Received 1 L normal saline bolus in the ED Continue IV normal saline at 125 cc/h Telemetry monitoring Fall precautions Also received p.o. potassium 40 mEq and K rider in the ED. recheck labs in a.m. Was loaded with 1 g Keppra in the ED for questionable seizures. Syncope less likely seizure induced Will hold [employer] aripiprazole, trazodone and sertraline. He would need outpatient EEG and Holter monitor to rule out seizures and arrhythmias. #Hypercalcemia, elevated hemoglobin-likely secondary to dehydration Continue IV fluids as above #Acute on chronic renal failure-likely secondary to dehydration Continue IV fluids as above #Right 5th metatarsal fracture- splinting pain control with po norco 1 tab q4h prn. PT eval. #History of nonischemic cardiomyopathy-no evidence of fluid overload. Continue [employer] aspirin, Imdur and coreg #Hypothyroidism-continue [employer] levothyroxine #BPH-continue [employer] Flomax #Hypertension-blood pressure controlled Will hold [employer] hydralazine GI PPx with iv pepcid DVT prophylaxis with SCD CODE STATUS discussed with patient and his , he is full code for now 08/27/24 Potassium 2.2, creatinine 2.4 trending down from 4.7 Acute renal failure improving Still has severe hypokalemia, etiology unknown Will replace p.o. potassium 40 mEq x 2 and K rider will recheck potassium at 6pm Continue IV fluids. PDMP PDMP Reviewed: Not Reviewed Attestations 2 Medical Necessity Statement*: He needs continued hospitalization not crossing 2 midnights for management of syncope, hypokalemia, dehydration with IV fluids and supportive care. Time Spent in Patient Care: 15minutes Coding Level of Care Code Acute Code for Chg Fwd Diagnoses Syncope R55 Closed fracture of fifth metatarsal bone S92.353A Dehydration E86.0 Hypokalemia E87.6 Hypercalcemia E83.52 Acute on chronic renal failure N17.9; N18.9 Multiple falls R29.6 Congestive heart failure I50.9 Time Spent (min) 15
[2024-08-27] MEDS: nicotine 21 mg Patch 1 PATCH TRANSDERMA (16:34)
[2024-08-27 18:14] LABS: Anion Gap 12.5 (5-19); Blood Urea Nitrogen 32 mg/dL (6-20); Calcium 9.6 mg/dL (8.5-10.5); Carbon Dioxide 28 mmol/L (22-29); Chloride 100 mmol/L (98-107); Creatinine Clr Calc Pharmacy 60.4768; Glomerular Filtration Rate 34.3 mL/min (90-130); Glucose 108 mg/dL (65-115); Osmolality Calculated 293 mOsm/kg (285-295); Sodium 138 mmol/L (136-145)
[2024-08-27 18:16] LABS: Potassium 2.5 mmol/L (3.5-5.1)
[2024-08-27] MEDS: sodium chlor 0.9% + KCl 20 mEq 20 MEQ/1,000 ML BAG 100 MEQ IV (18:45)
[2024-08-28 04:00] VITALS: BP 133/72; PULSE 68; RESP 16; TEMP 36.5; O2SAT 95
[2024-08-28] MEDS: HYDROcodone-acetaminophen 5-325 mg Tablet 1 TAB PO ×2 (04:02→09:58)
[2024-08-28] MEDS: famotidine 20 mg/2 mL INJ IVP (04:03)
[2024-08-28] MEDS: sodium chlor 0.9% + KCl 20 mEq 20 MEQ/1,000 ML BAG 100 MEQ IV (04:43)
[2024-08-28 05:01] LABS: Anion Gap 13.2 (5-19); Blood Urea Nitrogen 29 mg/dL (6-20); Calcium 9.5 mg/dL (8.5-10.5); Carbon Dioxide 28 mmol/L (22-29); Chloride 102 mmol/L (98-107); Creatinine Clr Calc Pharmacy 63.5006; Glomerular Filtration Rate 36.3 mL/min (90-130); Glucose 117 mg/dL (65-115); Magnesium 2.2 mg/dL (1.7-2.3); Osmolality Calculated 297 mOsm/kg (285-295); Potassium 3.2 mmol/L (3.5-5.1); Sodium 140 mmol/L (136-145)
[2024-08-28] MEDS: levothyroxine 25 mcg Tablet PO (05:59)
[2024-08-28 07:18] VITALS: BP 125/81; PULSE 64; RESP 18; TEMP 36.5; O2SAT 96
[2024-08-28] MEDS: carvedilol 25 mg Tablet PO (08:30)
[2024-08-28] MEDS: potassium chloride ER 20 mEq Tablet 40 MEQ PO ×2 (08:31→13:30)
[2024-08-28] MEDS: nicotine 21 mg Patch 1 PATCH TRANSDERMA (08:31)
[2024-08-28] MEDS: tamsulosin 0.4 mg Capsule PO (08:31)
[2024-08-28] MEDS: aspirin 81 mg EC Tablet PO (08:31)
[2024-08-28] MEDS: isosorbide dinitrate 20 mg Tablet PO (08:31)
--- NOTE | 2024-08-28 08:39 | PC.NURSE ---
Nicotine patch from 08/27/24 not found when placing 08/28/24 patch on.
--- NOTE | 2024-08-28 11:34 | P.DS_ITS ---
Discharge Providers Date of Admission: 08/26/24 16:49 Date of Discharge: August 28, 2024 Attending Provider at Admission: Nona West MD Attending Provider at Discharge: Nona West MD Primary Care Provider: Tawanna Nguyen MD Diagnoses at Discharge Discharge Diagnosis (1) Syncope: Status: Acute (2) Closed fracture of fifth metatarsal bone: Status: Acute (3) Dehydration: Status: Acute (4) Hypokalemia: Status: Acute (5) Hypercalcemia: Status: Acute (6) Acute on chronic renal failure: Status: Acute (7) Multiple falls: Status: Acute (8) Congestive heart failure: Status: Acute Reason for Visit Reason for Visit: multiple times passing out (1hr ago) Brief History: Doug Frank is a 44 year old male with history of nonischemic cardiomyopathy, reduced ejection fraction CHF, IV drug abuse, craniotomy for brain tumor in May 2023, noncompliance, hypertension, polypharmacy presented with chief complaint of syncopal events. Patient is orthostatic positive at home as per the who is at bedside. As per the patient he was walking to the bathroom, urinated and then had a syncopal episode. He does not remember the duration of LOC. He denied any complaint of chest pain, palpitations, dizziness, blurry vision, nausea/vomiting prior to the episode. He denies any complaint of tongue bite, urinary or bowel incontinence following the episode. He has history of similar episodes in the past. He had 2 syncopal episode in the last 12 hours, the second 1 he fell crumbling on his foot and noted to have right lateral foot swelling and pain. Denies any history of recent travel or sick contact. Denies any history of recent fever, cough, nausea/vomiting/diarrhea, chest pain, dizziness, palpitations. Hospital Course Hospital Course #Syncope-likely secondary to orthostatic hypotension, hypokalemia, dehydration Received 1 L normal saline bolus in the ED Continue IV normal saline at 125 cc/h Telemetry monitoring Fall precautions Also received p.o. potassium 40 mEq and K rider in the ED. recheck labs in a.m. Was loaded with 1 g Keppra in the ED for questionable seizures. Syncope less likely seizure induced Will hold [employer] aripiprazole, trazodone and sertraline. He would need outpatient EEG and Holter monitor to rule out seizures and arrhythmias. #Hypercalcemia, elevated hemoglobin-likely secondary to dehydration Continue IV fluids as above #Acute on chronic renal failure-likely secondary to dehydration Continue IV fluids as above #Right 5th metatarsal fracture- splinting pain control with po norco 1 tab q4h prn. PT eval. #History of nonischemic cardiomyopathy-no evidence of fluid overload. Continue [employer] aspirin, Imdur and coreg #Hypothyroidism-continue [employer] levothyroxine #BPH-continue [employer] Flomax #Hypertension-blood pressure controlled Will hold [employer] hydralazine GI PPx with iv pepcid DVT prophylaxis with SCD CODE STATUS discussed with patient and his , he is full code for now 08/27/24 Potassium 2.2, creatinine 2.4 trending down from 4.7 Acute renal failure improving Still has severe hypokalemia, etiology unknown Will replace p.o. potassium 40 mEq x 2 and K rider will recheck potassium at 6pm Continue IV fluids. 08/28/24 Labs showed potassium 3.2 this morning. Patient found to have falls rather than syncope likely secondary to severe hypokalemia of unknown etiology, will need potassium supplements on ongoing basis and potassium rich diet. Need further workup with nephrology as outpatient. Dehydration, hypercalcemia resolved. Acute renal failure resolved. encourage po fluid intake. Pt evaluated him. He is stable , Will discharge him today. will hold setralline, quetiapine and traziodone given recurrent falls. Physical Exam Narrative: He is alert awake oriented x 3, not in acute distress, right frontal suture smith seen Chest clear to auscultation bilaterally Cardiovascular normal heart sounds no murmurs Abdomen soft nontender nondistended normal bowel sounds Extremities shows right lateral and dorsal foot swollen and tender to touch. No edema noted bilateral lower extremities Discharge Data Studies Completed and Pending Completed Studies During Hospitalization Category Date Time Status CT head wo con* [id number] Stat Cat Scan 08/26/24 13:04 Completed XR chest 1V portable [id number] Stat Exams 08/26/24 13:04 Completed XR foot RT min 3V* [id number] Stat Exams 08/26/24 14:21 Completed Pending at discharge Category Date Time Status Basic Metabolic Panel AM LABS Lab 08/29/24 04:00 Ordered Blood Culture Stat Lab 08/26/24 13:18 Results Magnesium AM LABS Lab 08/29/24 04:00 Ordered Radiology Impressions Chest X-Ray 08/26/24 13:04 Impression: Negative chest. Head CT 08/26/24 13:04 IMPRESSION: 1. No acute intracranial hemorrhage or edema. 2. Improvement in the postoperative resection site with less infiltrating edema. 3. New focal area of decreased attenuation at the resection site measuring 1.4 x 1.3 cm. This may be normal postoperative residual. MRI with contrast should be obtained to exclude recurrence. This can be done on an outpatient basis. 4. LEFT frontal craniotomy site is stable. Foot X-Ray 08/26/24 14:21 Impression: Oblique fracture of the midshaft of the right fifth metatarsal. Laboratory Results WBC 10.82 10^3/uL (3.29-11.43) 08/26/24 13:20 RBC 6.30 10^6/uL (3.85-5.65) H 08/26/24 13:20 Hgb 18.40 g/dL (11.27-16.99) H 08/26/24 13:20 Hct 52.3 % (37-53) 08/26/24 13:20 MCV 83.0 fl (82-101) 08/26/24 13:20 MCH 29.2 pg (27-33) 08/26/24 13:20 MCHC 35.2 g/dL (30-55) 08/26/24 13:20 RDW 12.6 % (12.1-15.1) 08/26/24 13:20 Plt Count 342 10^3/cmm (157-399) 08/26/24 13:20 MPV 8.9 fL (7.4-10.4) 08/26/24 13:20 Neut % (Auto) 58.9 % 08/26/24 13:20 Lymph % (Auto) 29.1 % 08/26/24 13:20 [place] % (Auto) 8.2 % 08/26/24 13:20 Eos % (Auto) 2.8 % 08/26/24 13:20 Baso % (Auto) 0.6 % 08/26/24 13:20 Neut # (Auto) 6.38 10^3/uL (1.8-7.7) 08/26/24 13:20 Lymph # (Auto) 3.2 10^3/uL (0.8-4.8) 08/26/24 13:20 [place] # (Auto) 0.9 10^3/uL (0.2-0.9) 08/26/24 13:20 Eos # (Auto) 0.3 10^3/uL (0.0-0.8) 08/26/24 13:20 Baso # (Auto) 0.1 10^3/uL (0.0-0.1) 08/26/24 13:20 Nucleated RBC % (auto) 0 % 08/26/24 13:20 Nucleated RBCs # 0.0 /100WBC 08/26/24 13:20 Sodium 140 mmol/L (136-145) 08/28/24 04:14 Potassium 3.2 mmol/L (3.5-5.1) L 08/28/24 04:14 Chloride 102 mmol/L (98-107) 08/28/24 04:14 Carbon Dioxide 28 mmol/L (22-29) 08/28/24 04:14 Anion Gap 13.2 (5-19) 08/28/24 04:14 BUN 29 mg/dL (6-20) H 08/28/24 04:14 Creatinine 2.0 mg/dL (0.7-1.2) H 08/28/24 04:14 GFR Calculation 36.3 mL/min (90-130) L 08/28/24 04:14 Glucose 117 mg/dL (65-115) H 08/28/24 04:14 Calculated Osmolality 297 mOsm/kg (285-295) H 08/28/24 04:14 Lactic Acid 1.6 mmol/L (0.5-2.2) 08/26/24 13:18 Calcium 9.5 mg/dL (8.5-10.5) 08/28/24 04:14 Magnesium 2.2 mg/dL (1.7-2.3) 08/28/24 04:14 Total Bilirubin 0.7 mg/dL (0.15-1.2) 08/26/24 13:20 AST 89 U/L (0-40) H 08/26/24 13:20 ALT 62 U/L (0-41) H 08/26/24 13:20 Alkaline Phosphatase 90 U/L (40-130) 08/26/24 13:20 Troponin T Baseline 34 ng/L (0-15) H 08/26/24 13:20 Troponin T 120 Minute 30.34 ng/L (0-15) H 08/26/24 15:20 Delta Troponin T -3.66 ABS# (0-10) L 08/26/24 15:20 Troponin T Hi Sens 6Hr 27.00 ng/L (0-15) H 08/26/24 19:28 Troponin T Hi Sens 6Hr Delta -7.00 ng/L (0-12) L 08/26/24 19:28 Total Protein 10.0 g/dL (6.6-8.7) H 08/26/24 13:20 Albumin 5.1 g/dL (3.5-5.2) 08/26/24 13:20 Globulin 4.9 g/dL (1.3-4.6) H 08/26/24 13:20 TSH 3.46 uIU/mL (0.27-4.20) 08/27/24 04:59 Urine Color Yellow (Yellow) 08/26/24 14:30 Urine Appearance Clear (CLEAR) 08/26/24 14:30 Urine pH 6.0 (5-7) 08/26/24 14:30 Ur Specific [place] 1.010 (1.005-1.030) 08/26/24 14:30 Urine Protein 1+ (Negative) A 08/26/24 14:30 Urine Glucose (UA) Negative (Normal) 08/26/24 14:30 Urine Ketones Negative (Negative) 08/26/24 14:30 Urine Blood Negative (Negative) 08/26/24 14:30 Urine Nitrate Negative (Negative) 08/26/24 14:30 Urine Bilirubin Negative (Negative) 08/26/24 14:30 Urine Urobilinogen 0.2 mg/dL (Negative) 08/26/24 14:30 Ur Leukocyte Esterase Negative (Negative) 08/26/24 14:30 Urine RBC 0-2 /hpf (0-2) 08/26/24 14:30 Urine WBC 0-5 /hpf (0-5) 08/26/24 14:30 Ur Squamous Epith Cells 0-5 /hpf (0-5) 08/26/24 14:30 Amorphous Sediment Not Reportable 08/26/24 14:30 Urine Bacteria None seen /hpf (NONE) 08/26/24 14:30 Hyaline Casts 7.01 /lpf 08/26/24 14:30 Salicylates < 0.3 mg/dL (3-10) L 08/26/24 13:20 Urine Opiates Screen Negative ng/mL (Negative) 08/26/24 14:30 Acetaminophen < 5.0 ug/mL (10-30) L 08/26/24 13:20 Ur Barbiturates Screen Negative ng/mL (Negative) 08/26/24 14:30 Ur Phencyclidine Scrn Negative ng/mL (Negative) 08/26/24 14:30 Ur Amphetamines Screen Negative ng/mL (Negative) 08/26/24 14:30 U Benzodiazepines Scrn Negative ng/mL (Negative) 08/26/24 14:30 Urine Cocaine Screen Negative ng/mL (Negative) 08/26/24 14:30 U Marijuana (THC) Screen Negative ng/mL (Negative) 08/26/24 14:30 Ethyl Alcohol < 10 mg/dL (0-10) 08/26/24 13:20 Influenza A (PCR) Negative (Negative) 08/26/24 13:37 Influenza Type B (PCR) Negative (Negative) 08/26/24 13:37 RSV (PCR) Negative (Negative) 08/26/24 13:37 SARS-CoV-2 (PCR) Negative (Negative) 08/26/24 13:37 Vitals Last Vital Signs Temp 97.7 F 08/28/24 07:18 Pulse 64 08/28/24 07:18 Resp 18 08/28/24 07:18 BP 125/81 08/28/24 07:18 Pulse Ox 96 08/28/24 07:18 O2 Del Method Room Air 08/28/24 07:18 Discharge Plan Discharge Patient Disposition: Home Condition: Stable Prescriptions: New potassium chloride [Klor-Con M20] 20 mEq tablet,ER particles/crystals 40 meq PO TID Qty: 90 0RF Rx Instructions: Take 2 tabs three times a day for 1 week and then 2 tabs twice a day Continued isosorbide dinitrate 20 mg tablet 20 mg PO BID Qty: 180 1RF carvedilol 25 mg Tablet 25 mg PO BID Rx Instructions: must administer with a meal/food levothyroxine 25 mcg Tablet 25 mcg PO QAM aripiprazole 10 mg Tablet 10 mg PO BEDTIME aspirin 81 mg Tablet,Delayed Release (Dr/Ec) 81 mg PO DAILY cholecalciferol (vitamin D3) [Vitamin D3] 25 mcg (1,000 unit) Tablet 25 mcg PO DAILY tamsulosin 0.4 mg Capsule 0.4 mg PO DAILY Discontinued hydralazine 100 mg tablet 100 mg PO TID Qty: 270 1RF sertraline 100 mg Tablet 150 mg PO DAILY trazodone 100 mg Tablet 200 mg PO BEDTIME quetiapine 200 mg Tablet 100 mg PO DAILY Discharge Orders: Discharge Order (Routine); Ordered 08/28/24 Ordered By: Nona West Referrals: Srikanth Walsh MD [Physician] - 09/05/24 Tawanna Nguyen MD [Primary Care Provider] - Discharge Diet: Cardiac Discharge Activity: Increase activity as tolerated Patient Instructions: Opioid Safety Discharge Attestations Time Spent in Discharge Care*: less than 30 min Quality Metrics Clinical Quality Measures [ No reported AMI, CVA or VTE this stay] Coding Level of Care Code Acute Code for Chg Fwd Diagnoses Syncope R55 Closed fracture of fifth metatarsal bone S92.353A Dehydration E86.0 Hypokalemia E87.6 Hypercalcemia E83.52 Acute on chronic renal failure N17.9; N18.9 Multiple falls R29.6 Congestive heart failure I50.9 Time Spent (min) 15
[2024-08-28 11:48] VITALS: BP 116/73; PULSE 62; RESP 18; TEMP 36.4; O2SAT 96
[2024-08-28 13:55] VITALS: BP 116/73; PULSE 62; O2SAT 96
== END 2024-08-28 13:58 | disposition home or self-care (01) ==
LOC: ER 14:59 → MEDSURG 16:49
PROVIDERS: Admitting Provider Internal Medicine; Emergency Provider Emergency Medicine; PCP Family Medicine; Visit Provider Internal Medicine
DX: R55 Syncope and collapse (principal); S92.353A Displaced fracture of fifth metatarsal bone, unspecified foot, initial encounter for closed fracture; W18.30XA Fall on same level, unspecified, initial encounter; E86.0 Dehydration; E87.6 Hypokalemia; E83.52 Hypercalcemia; Z79.82 Long term (current) use of aspirin; I42.8 Other cardiomyopathies; F19.11 Other psychoactive substance abuse, in remission; G40.909 Epilepsy, unspecified, not intractable, without status epilepticus; I13.0 Hypertensive heart and chronic kidney disease with heart failure and stage 1 through stage 4 chronic kidney disease, or unspecified chronic kidney disease; N18.9 Chronic kidney disease, unspecified; I50.20 Unspecified systolic (congestive) heart failure; Z85.841 Personal history of malignant neoplasm of brain; N17.9 Acute kidney failure, unspecified; N40.0 Benign prostatic hyperplasia without lower urinary tract symptoms; Z86.19 Personal history of other infectious and parasitic diseases; F15.11 Other stimulant abuse, in remission; Z98.890 Other specified postprocedural states; Z91.199 Patient's noncompliance with other medical treatment and regimen due to unspecified reason
CPT/HCPCS: 36415; 70450; 71045; 73630; 80048; 80053; 80306; 80307; 81001; 83605; 83735; 84443; 84484; 85025; 87040; 87637; 93005; 96365; 96366; 96367; 96375; 96376; 97161; 99285; G0378; J1171; J1953; J3475; J3480; J3490; J7030; J9999

== ENCOUNTER 2024-09-09 13:58 | Outpatient (CLI) | payer OTHER, SELFPAY ==
[2024-09-09 14:57] LABS: Bilirubin Urine Negative (Negative); Blood Urine Negative (Negative); Glucose Urine UA Negative (Normal); Ketones Urine Negative (Negative); Leukocyte Esterase Urine Negative (Negative); Nitrate Urine Negative (Negative); Protein Urine Trace (Negative); Specific Gravity, Urine 1.013 (1.005-1.030); Urine Appearance Clear (CLEAR); Urine Color Yellow (Yellow); Urobilinogen Urine 0.2 mg/dL (Negative); pH Urine 5.5 (5-7)
[2024-09-09 15:02] LABS: Bacteria Urine None Seen /hpf; Hyaline Casts Urine 1.65 /lpf; RBC Urine 0-2 /hpf (0-2); Squamous Epithelial Cell Urine 0-5 /hpf (0-5); WBC Urine 0-5 /hpf (0-5)
[2024-09-09 15:10] LABS: Add Urine Culture? No
[2024-09-09 15:12] LABS: Albumin Level 4.1 g/dL (3.5-5.2); Blood Urea Nitrogen 12 mg/dL (6-20); Calcium 9.9 mg/dL (8.5-10.5); Carbon Dioxide 23 mmol/L (22-29); Chloride 102 mmol/L (98-107); Glucose 79 mg/dL (65-115); Phosphorus 2.8 mg/dL (2.5-4.5); Sodium 137 mmol/L (136-145)
[2024-09-09 15:15] LABS: Anion Gap 16.7 (5-19); Calcium 10.3 mg/dL (8.5-10.5); Potassium 4.7 mmol/L (3.5-5.1)
[2024-09-09 15:22] LABS: Parathyroid Hormone 75.4 pg/mL (15-65)
[2024-09-09 15:28] LABS: 25 Hydroxy Vitamin D 35 ng/mL (30-100)
[2024-09-09 15:33] LABS: Creatinine Urine, Random 128 mg/dL (39-259); Microalbumin Random Urine 12 ug/dL (0-20)
[2024-09-09 15:35] LABS: Microalbum Creatinine Ratio Ur 94 mg/dL (0-20)
== END 2024-09-09 13:59 | disposition home or self-care (01) ==
PROVIDERS: PCP Family Medicine; Visit Provider Registered Nurse
DX: N18.4 Chronic kidney disease, stage 4 (severe) (principal)
CPT/HCPCS: 36415; 80069; 81001; 82044; 82306; 82310; 83970; 85025

== ENCOUNTER 2025-03-09 09:21 | Outpatient (CLI) | payer OTHER, SELFPAY ==
[2025-03-09 09:52] LABS: Hematocrit 42.8 % (37-53); Hemoglobin 15.80 g/dL (11.27-16.99); Mean Corpuscular HGB Conc 36.9 g/dL (30-55); Mean Corpuscular Hemoglobin 34.3 pg (27-33); Mean Corpuscular Volume 93.0 fl (82-101); Nucleated Red Blood Cells % 0 %; Platelet Count 261 10^3/cmm (157-399); Red Blood Count 4.60 10^6/uL (3.85-5.65); White Blood Count 7.82 10^3/uL (3.29-11.43)
[2025-03-09 10:10] LABS: Calcium 10.2 mg/dL (8.5-10.5)
[2025-03-09 10:13] LABS: Albumin Level 4.2 g/dL (3.5-5.2); Blood Urea Nitrogen 40 mg/dL (6-20); Calcium 10.0 mg/dL (8.5-10.5); Carbon Dioxide 28 mmol/L (22-29); Chloride 92 mmol/L (98-107); Glucose 150 mg/dL (65-115); Sodium 134 mmol/L (136-145)
[2025-03-09 10:29] LABS: Creatinine Urine, Random 43 mg/dL (39-259); Microalbum Creatinine Ratio Ur 116 mg/dL (0-20)
[2025-03-09 10:34] LABS: Anion Gap 16.4 (5-19); Potassium 2.4 mmol/L (3.5-5.1)
== END 2025-03-09 09:22 | disposition home or self-care (01) ==
LOC: LAB 09:22
PROVIDERS: PCP Family Medicine; Visit Provider Registered Nurse
DX: N18.32 Chronic kidney disease, stage 3b (principal)
CPT/HCPCS: 36415; 80069; 82044; 82310; 83970; 85025

== ENCOUNTER 2025-03-13 10:14 | Outpatient (CLI) | payer OTHER, SELFPAY ==
[2025-03-13 11:00] LABS: Hematocrit 40.1 % (37-53); Hemoglobin 14.20 g/dL (11.27-16.99); Mean Corpuscular HGB Conc 35.4 g/dL (30-55); Mean Corpuscular Hemoglobin 34.0 pg (27-33); Mean Corpuscular Volume 95.9 fl (82-101); Nucleated Red Blood Cells % 0 %; Platelet Count 276 10^3/cmm (157-399); Red Blood Count 4.18 10^6/uL (3.85-5.65); White Blood Count 6.32 10^3/uL (3.29-11.43)
[2025-03-13 11:25] LABS: Albumin Level 4.0 g/dL (3.5-5.2); Anion Gap 15.1 (5-19); Blood Urea Nitrogen 21 mg/dL (6-20); Calcium 9.2 mg/dL (8.5-10.5); Carbon Dioxide 29 mmol/L (22-29); Chloride 96 mmol/L (98-107); Glucose 119 mg/dL (65-115); Potassium 3.1 mmol/L (3.5-5.1); Sodium 137 mmol/L (136-145)
[2025-03-13 11:29] LABS: Creatinine Urine, Random 96 mg/dL (39-259); Microalbum Creatinine Ratio Ur 83 mg/dL (0-20)
[2025-03-13 11:36] LABS: Calcium 9.2 mg/dL (8.5-10.5)
== END 2025-03-13 10:15 | disposition home or self-care (01) ==
LOC: LAB 10:14
PROVIDERS: PCP Family Medicine; Visit Provider Registered Nurse
DX: N18.32 Chronic kidney disease, stage 3b (principal)
CPT/HCPCS: 36415; 80069; 82044; 82310; 83970; 85025